=== PATIENT | male | born 1950 | race Caucasian/White ===

== ENCOUNTER → 2017-05-25 09:58 | Outpatient (CLI) | payer OTHER, MEDICARE, SELFPAY ==
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
== END ==
PROVIDERS: PCP Internal Medicine Adolescent Medicine; Referring Provider Internal Medicine Adolescent Medicine; Visit Provider Internal Medicine Adolescent Medicine
DX: S63.501D Unspecified sprain of right wrist, subsequent encounter (principal)
CPT/HCPCS: 73090; 73110

== ENCOUNTER → 2017-06-19 07:02 | Outpatient (CLI) | payer MEDICARE, OTHER, SELFPAY ==
--- NOTE | 2017-06-19 07:09 | CA_ITS ---
PROCEDURE: 2-D M-mode and color Doppler study INDICATIONS FOR THE TEST: Chest pain COPD Heart Murmur Tobacco Smokingx Palpitations Fatigue Syncope Edema HypertensionxDiabetes Mellitus Rheumatic Fever SOB MAZARIEGOS Obesity Hyperlipidemiax Family History HD Additional History PATIENT INFORMATION HEIGHT: 5' 9'' WEIGHT: 140 GENDER: Male B/P: 103/62 2-D/M-MODE INTERPRETATION: 2-D MEASUREMENTS OBSERVED VALUES IN CMS Right Ventricular Dimension (RVDd) 2.7 Interventricular Septum (Thickness)(IVsd) 1.3 Left Ventricular Internal Dimensions(LVIDd) 3.8 Left Ventricular Posterior Wall (Thickness)(LVPWd) 1.3 Aortic Root 3.4 Aortic Cusp Separation 1.9 Left Atrial Dimensions (LAD) 3.4 2D 1. Left atrium is qualitatively mildly enlarged, left ventricle is normal size, there is mild concentric left ventricular hypertrophy, visually estimated ejection fraction 55% with no obvious regional wall motion abnormality. 2. The right atrium and right ventricle are relatively normal size and function. 3. The aortic valve is thickened and calcified leaflet continue to display mobility. 4. The mitral valve leaflets are minimally thickened, there is mild prolapse of the posterior mitral leaflet. 5. The tricuspid valve leaflets are minimally thickened. 6. The pulmonic valve is poorly visualized. 7. No significant pericardial effusion noted. DOPPLER INTERROGATION: Doppler interrogation of the aortic, mitral and tricuspid valvular presence of mild aortic, mild to moderate mitral and tricuspid regurgitation, tricuspid and jet velocity is insufficient for calculation of the right ventricular systolic pressure, grade 1 diastolic dysfunction seen without tissue Doppler evidence of raised left atrial pressure. CONCLUSION: 1. Mildly enlarged left atrium, normal left ventricular size, mild concentric left ventricular hypertrophy, visually estimated ejection fraction 55% with no obvious regional wall motion abnormality. Grade 1 diastolic dysfunction seen without tissue Doppler evidence of raised left atrial pressure. 2. Thickened and calcified aortic valve without aortic stenosis, there is mild aortic insufficiency. 3. Mild posterior mitral leaflet prolapse associated with mild to moderate mitral regurgitation 4. Mild to moderate tricuspid regurgitation 5. No significant pericardial effusion noted.
--- NOTE | 2017-06-19 07:09 | CI_ITS ---
Cerebrovascular Exam Indications: 433.10 Occlusion/stenosis of carotid artery without cerebral infarction. IMPRESSIONS 1. The bilateral internal carotid arteries reveal no evidence of plaque or stenosis. 2. The bilateral common and external carotid arteries reveal no significant stenosis. Carotid duplex study. Complete study and Doppler flow study including spectral analysis, color and steward scale imaging. Height: Height: 175.3cm. Height: 69in. Weight: Weight: 63.5kg. Weight: 139.7lb. Body mass index: BMI: 20.7kg/m^2. Body surface area: BSA: 1.75m^2. Location: Vascular laboratory. Patient status: Outpatient. Tables: Arterial flow: + +---------+---------+ Location V sys V ed + +---------+---------+ Right CCA - proximal 76.1cm/s 18.2cm/s + +---------+---------+ Right CCA - distal 65.6cm/s 17.1cm/s + +---------+---------+ Right ECA -116cm/s -18.2cm/s + +---------+---------+ Right ICA - proximal -53.1cm/s -19.6cm/s + +---------+---------+ Right ICA - mid -53.4cm/s -22.3cm/s + +---------+---------+ Right ICA - distal -55.5cm/s -28.3cm/s + +---------+---------+ Right vertebral 49.6cm/s 11.9cm/s + +---------+---------+ Left CCA - proximal 72.8cm/s 16.5cm/s + +---------+---------+ Left CCA - distal 80cm/s 21cm/s + +---------+---------+ Left ECA -86.6cm/s -19.3cm/s + +---------+---------+ Left ICA - proximal -53.5cm/s -17.2cm/s + +---------+---------+ Left ICA - mid -46.7cm/s -22.1cm/s + +---------+---------+ Left ICA - distal -44.8cm/s -21.6cm/s + +---------+---------+ Left vertebral -48.3cm/s -17.3cm/s + +---------+---------+ Velocity ratios: + + + + Right, V sys Left, V sys + + + + Max ICA/mid CCA 0.73 0.67 + + + + (Report amended ) Electronically signed by: Josue Nunez [id number]
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
== END ==
PROVIDERS: Family Provider Internal Medicine Adolescent Medicine; PCP Internal Medicine Adolescent Medicine; Visit Provider Internal Medicine
DX: I20.8 Other forms of angina pectoris (principal); R20.0 Anesthesia of skin; I65.23 Occlusion and stenosis of bilateral carotid arteries
CPT/HCPCS: 78452; 93017; 93306; 93880; A9502; J2785

== ENCOUNTER 2017-06-28 11:58 | Day surgery (SDC) | payer MEDICARE, OTHER, SELFPAY ==
[2017-06-28] VITALS (9 sets, daily range): BP systolic 111–134; BP diastolic 62–73; PULSE 38–55; RESP 18; TEMP 36.7; O2SAT 97–100; BMI 19.4
--- NOTE | 2017-06-28 12:01 | CA_ITS ---
Procedure: Transesophageal echocardiogram Indication for procedure: AI Procedure: Patient was brought in to the cardiac catheter lab holding area in hemodynamically stable condition, after the informed consent, conscious sedation was brought by anesthesiologist, local anesthesia was applied, and transesophageal echocardiogram was performed without any difficulty. Patient tolerated the procedure well. Findings: 1. The left atrium is mildly enlarged, left atrial appendage thrombus, there is good appendage flow by spectral Doppler. 2. The right atrium is normal size, 3. The intra-atrial septum is intact, there is a small PFO with left to right shunt, agitated saline contrast study fails to identify right to left shunt. 4. The aortic valve is minimally thickened and calcified, there appears to be degenerative changes present in the noncoronary cusp which prolapse during diastole towards the left ventricular outflow tract, there is no aortic stenosis, there is severe aortic insufficiency present. 5. The mitral valve leaflets are minimally thickened, there is mild mitral regurgitation there is no mitral stenosis. 6. The tricuspid valve is structurally normal 7. The pulmonic valve is structurally normal 8. The right ventricle is normal size and contractility. 9. The left ventricle is normal size, overall preserved left ventricular systolic function, visually estimated ejection fraction of 55% with no obvious regional wall motion abnormality. 10. Ascending, arch and descending thoracic aorta there is no aneurysm or dissection. Conclusion: 1. Mildly left atrium, normal left ventricular size, visually estimated ejection fraction 55% with no obvious regional wall motion abnormality. 2. Abnormally aortic valve is described above associated with severe aortic insufficiency 3. Patent foramen ovale with left right shunt, agitated saline contrast study appears to identify right to left shunt. 4. No significant pericardial effusion noted 5. Mild mitral and tricuspid regurgitation.
--- NOTE | 2017-06-28 13:03 | P.PN_ITS ---
[facility] Anesthesia Checklist - Patient Identification Patient Identification: Arm Band - Structural Data Admitted From: Home Planned Operative Procedure/s: lolis Consent for Planned Operative Procedure(s) Verified: Yes Verified Documents: History and Physical - NPO Status Verified Time NPO: 00:00 - Additional verifications Anesthesia Reactions: No - Airway Assessment C-Spine Mobility Assessed: Yes TMJ Mobility Assessed: Yes Dentition: Dentures-good fit - Neurological Assessment Level of Consciousness: Awake, Alert - Anesthesia Plan Anesthesia Risk discussed: Yes Anesthesia Plan: Verified ASA Class: III Anesthesia Type: MAC [facility] Anesthesia HX I have reviewed the patient's past medical history: Yes Medical History: Reports:: Coronary Artery Disease, Gastroesophageal Reflux Disease(GERD), Hyperlipidemia, Hypertension, Valvular Heart Disease Denies:: Internal Pacemaker, Seizures Other Medical History: Denies: Blood Transfusion Reaction Other Surgeries: Yes: Colonoscopy (2016), Hernia Repair (01/2016). No: Pacemaker Amputation: No Fractures: No *Family Hx:: Diabetes
== END 2017-06-28 14:48 | disposition home or self-care (01) ==
LOC: CATHLAB 12:00
PROVIDERS: Family Provider Internal Medicine Adolescent Medicine; PCP Internal Medicine Adolescent Medicine; Visit Provider Internal Medicine Cardiovascular Disease
DX: I34.0 Nonrheumatic mitral (valve) insufficiency (principal); R93.1 Abnormal findings on diagnostic imaging of heart and coronary circulation; R06.02 Shortness of breath; R01.1 Cardiac murmur, unspecified; I25.118 Atherosclerotic heart disease of native coronary artery with other forms of angina pectoris
CPT/HCPCS: 93312; 99152; J2405

== ENCOUNTER → 2017-09-16 09:20 | Outpatient (POV) | payer MEDICARE, OTHER, SELFPAY | PROVIDERS: Family Provider Internal Medicine Adolescent Medicine; PCP Internal Medicine Adolescent Medicine; Visit Provider Nurse Practitioner Acute Care | DX: Z00.00 Encounter for general adult medical examination without abnormal findings (principal) ==

== ENCOUNTER → 2017-10-28 09:00 | Outpatient (POV) | payer MEDICARE, OTHER, SELFPAY | PROVIDERS: Family Provider Internal Medicine Adolescent Medicine; PCP Internal Medicine Adolescent Medicine; Visit Provider Nurse Practitioner Acute Care | DX: Z00.00 Encounter for general adult medical examination without abnormal findings (principal) ==

== ENCOUNTER → 2018-01-09 12:26 | Outpatient (CLI) | payer MEDICARE, OTHER, SELFPAY ==
[2018-01-10 19:05] LABS: PSA, Free 0.48 ng/mL; Prostate Specific Ag 3.1 ng/mL (0.0-4.0)
== END ==
PROVIDERS: Family Provider Internal Medicine Adolescent Medicine; PCP Internal Medicine Adolescent Medicine; Visit Provider Urology
DX: R97.20 Elevated prostate specific antigen [PSA] (principal)
CPT/HCPCS: 36415; 84153; 84154

== ENCOUNTER → 2018-01-20 15:41 | Outpatient (POV) | payer MEDICARE, OTHER, SELFPAY | PROVIDERS: Visit Provider Nurse Practitioner Acute Care | DX: Z00.00 Encounter for general adult medical examination without abnormal findings (principal) ==

== ENCOUNTER → 2018-04-21 14:57 | Outpatient (POV) | payer MEDICARE, OTHER, SELFPAY | PROVIDERS: Visit Provider Nurse Practitioner Acute Care | DX: Z00.00 Encounter for general adult medical examination without abnormal findings (principal) ==

== ENCOUNTER → 2018-04-21 15:36 | Outpatient (CLI) | payer MEDICARE, OTHER, SELFPAY ==
[2018-04-21 19:03] LABS: Anion Gap 12.6 mEq/L (5-15); Blood Urea Nitrogen 21 mg/dL (7-18); Calcium 8.7 mg/dL (8.5-10.1); Carbon Dioxide 28 mmol/L (21.0-32.0); Chloride 105 mmol/L (98-107); Creatinine,Serum 1.16 mg/dL (0.70-1.30); Estimated Glomerular Filt Rate 62 ml/min (>60); GFR (African American) 75 ML/MIN (>60); Glucose 95 mg/dL (74-106); Potassium 4.6 mmoL/L (3.5-5.1); Sodium 141 mmol/L (136-145)
== END ==
PROVIDERS: Visit Provider Nurse Practitioner Acute Care
DX: R10.9 Unspecified abdominal pain (principal)
CPT/HCPCS: 36415; 80048

== ENCOUNTER → 2018-04-24 09:57 | Outpatient (CLI) | payer MEDICARE, OTHER, SELFPAY ==
--- NOTE | 2018-04-24 10:09 | CT_ITS ---
CT abdomen pelvis w con CLINICAL INDICATION: Mid to left upper abdominal pain radiating into the back ITS.REASON: MIDEPIGASTRIC PAIN ORDERING PHYSICIAN: Jess Foss PATIENT AGE: 68 years COMPARISON: 07/06/2016 TECHNIQUE: Axial images obtained with sagittal and coronal reformats. All CT scans at the facility use one or more dose reduction, viz: automated exposure control, ma/kV adjustment per patient size (including targeted exams where dose is matched to indication, i.e. head), or iterative reconstruction technique. PROCEDURE: Oral Contrast: Redicat IV Contrast: 75 mL's of Isovue 370. FINDINGS: There is atelectasis or scarring in the lung bases. The liver, gallbladder, spleen, adrenal glands, and pancreas have an unremarkable appearance. No renal or ureteral calculi. No hydronephrosis or renal mass. Unremarkable appendix. No intestinal obstruction or free air. There is diverticulosis of the sigmoid colon but no evidence of diverticulitis. The prostate is enlarged at 6.7 x 5.6 cm Mild lumbar scoliosis convex left. Multilevel degenerative disc disease in the lumbar spine with facet arthritic change. IMPRESSION: 1. No acute abdominal or pelvic findings. 2. Diverticulosis coli. No evidence of diverticulitis. 3. Enlarged prostate. 4. Degenerative changes lumbar spine
== END ==
PROVIDERS: PCP Internal Medicine Adolescent Medicine; Visit Provider Nurse Practitioner Acute Care
DX: R10.9 Unspecified abdominal pain (principal)
CPT/HCPCS: 74177; Q9967

== ENCOUNTER → 2018-07-10 12:10 | Outpatient (CLI) | payer MEDICARE, OTHER, SELFPAY ==
[2018-07-12 10:14] LABS: PSA, Free 1.02 ng/mL; Prostate Specific Ag 3.8 ng/mL (0.0-4.0)
== END ==
PROVIDERS: Visit Provider Urology
DX: R97.20 Elevated prostate specific antigen [PSA] (principal)
CPT/HCPCS: 36415; 84153; 84154

== ENCOUNTER → 2018-10-20 13:54 | Outpatient (POV) | payer MEDICARE, OTHER, SELFPAY | PROVIDERS: Visit Provider Nurse Practitioner Family | DX: Z00.00 Encounter for general adult medical examination without abnormal findings (principal) ==

== ENCOUNTER → 2019-02-27 10:49 | Outpatient (CLI) | payer MEDICARE, OTHER, SELFPAY ==
[2019-02-27 11:20] LABS: Basophils # 0.1 K/mm3 (0-0.2); Basophils % 0.5 % (0.1-2.0); Eosinophils # 0.2 K/mm3 (0.0-0.4); Hematocrit 47.1 % (42.0-52.0); Hemoglobin 15.1 g/dL (14.1-18.0); Lymphocytes % 17.9 % (10-50); Mean Corpuscular Hemoglobin 30.4 pg (27.0-31.2); Mean Corpuscular Volume 95.1 fl (80-94); Mean Platelet Volume 8.1 fl (7.4-10.4); Monocytes # 0.6 K/mm3 (0.1-1.0); Monocytes % 5.8 % (1.7-9.3); Neutrophils # 8.3 K/mm3 (1.8-7.8); Neutrophils % 73.8 % (37.0-80.0); Platelet Count 368 K/mm3 (142-424); Red Blood Count 4.96 M/mm3 (4.60-6.20); Red Cell Distribution Width 13.1 % (11.5-17.5); White Blood Count 11.2 K/mm3 (4.8-10.8)
[2019-02-27 13:49] LABS: Alanine Aminotransferase 21 U/L (12-78); Albumin/Globulin Ratio 1.5 (1.1-1.8); Alkaline Phosphatase 84 U/L (46-116); Anion Gap 8.7 mEq/L (5-15); Aspartate Amino Transferase 11 U/L (15-37); Bilirubin,Total 1.2 mg/dL (0.2-1.0); Blood Urea Nitrogen 13 mg/dL (7-18); Carbon Dioxide 31 mmol/L (21.0-32.0); Chloride 103 mmol/L (98-107); Chol/HDL Ratio 1.9 (1-3.5); Cholesterol 131 mg/dL (140-200); Creatinine,Serum 0.92 mg/dL (0.70-1.30); Estimated Glomerular Filt Rate 81 ml/min (>60); GFR (African American) 98 ML/MIN (>60); Globulin 2.6 gm/dl (1.3-3.2); Glucose 84 mg/dL (74-106); HDL Cholesterol 69 mg/dL (27-67); LDL Cholesterol 44 mg/dL (0-130); Potassium 4.7 mmoL/L (3.5-5.1); Sodium 138 mmol/L (136-145); Thyroid Stimulating Hormone 0.61 uIU/ml (0.358-3.740); Total Protein,Serum 6.6 gm/dL (6.4-8.2); Triglycerides 89 mg/dL (30-200); VLDL Cholesterol 18 mg/dL (0-40)
[2019-02-28 18:53] LABS: Vitamin B12 475 pg/mL (232-1245); Vitamin D 25 Hydroxy 23.4 ng/mL (30.0-100.0)
== END ==
PROVIDERS: Visit Provider Internal Medicine Adolescent Medicine
DX: I25.10 Atherosclerotic heart disease of native coronary artery without angina pectoris (principal); R20.2 Paresthesia of skin; Z79.899 Other long term (current) drug therapy
CPT/HCPCS: 36415; 80053; 80061; 82607; 82652; 83036; 84443; 85025

== ENCOUNTER → 2019-07-20 11:53 | Outpatient (CLI) | payer MEDICARE, OTHER, SELFPAY ==
[2019-07-24 11:22] LABS: PSA, Free 0.46 ng/mL; Prostate Specific Ag 2.9 ng/mL (0.0-4.0)
== END ==
PROVIDERS: Visit Provider Urology
DX: R97.20 Elevated prostate specific antigen [PSA] (principal)
CPT/HCPCS: 36415; 84153; 84154

== ENCOUNTER → 2019-08-20 15:00 | Outpatient (CLI) | payer MEDICARE, OTHER, SELFPAY ==
[2019-08-20 15:19] LABS: Basophils # 0.1 K/mm3 (0-0.2); Basophils % 0.8 % (0.1-2.0); Eosinophils # 0.2 K/mm3 (0.0-0.4); Eosinophils % 2.6 % (0.1-12.0); Hematocrit 42.5 % (42.0-52.0); Hemoglobin 13.9 g/dL (14.1-18.0); Lymphocytes # 1.7 K/mm3 (0.7-4.5); Lymphocytes % 21.7 % (10-50); Mean Corpuscular HGB Conc 32.7 g/dL (31.8-35.4); Mean Corpuscular Hemoglobin 30.1 pg (27.0-31.2); Mean Corpuscular Volume 91.9 fl (80-94); Mean Platelet Volume 8.9 fl (7.4-10.4); Monocytes # 0.5 K/mm3 (0.1-1.0); Monocytes % 5.9 % (1.7-9.3); Neutrophils # 5.5 K/mm3 (1.8-7.8); Platelet Count 370 K/mm3 (142-424); Red Blood Count 4.63 M/mm3 (4.60-6.20); Red Cell Distribution Width 12.9 % (11.5-17.5)
[2019-08-20 16:55] LABS: Chloride 101 mmol/L (98-107); Potassium 4.7 mmoL/L (3.5-5.1); Sodium 137 mmol/L (136-145)
[2019-08-20 16:58] LABS: Alanine Aminotransferase 25 U/L (12-78); Alkaline Phosphatase 58 U/L (38-126); Anion Gap 13.7 mEq/L (5-15); Aspartate Amino Transferase 30 U/L (17-59); Bilirubin,Total 1.1 mg/dl (0.2-1.3); Blood Urea Nitrogen 12 mg/dl (9-20); Calcium 9.4 mg/dl (8.4-10.2); Carbon Dioxide 27 mmol/L (22.0-30.0); Cholesterol 111 mg/dl (140-200); Estimated Glomerular Filt Rate 83 ml/min (>60); GFR (African American) 101 ML/MIN (>60); Glucose 115 mg/dl (74-100); Triglycerides 94 mg/dl (30-150); VLDL Cholesterol 19 mg/dL (0-40)
[2019-08-20 16:59] LABS: Albumin Level 4.3 g/dl (3.5-5.0); Albumin/Globulin Ratio 2.2 (1.1-1.8); Chol/HDL Ratio 2.4 (1-3.5); HDL Cholesterol 47 mg/dl (40-60); Total Protein,Serum 6.3 g/dl (6.3-8.2)
[2019-08-20 17:10] LABS: Direct LDL Cholesterol 61.53 mg/dL (100-129)
== END ==
PROVIDERS: Visit Provider Internal Medicine Adolescent Medicine
DX: E78.5 Hyperlipidemia, unspecified (principal); I25.10 Atherosclerotic heart disease of native coronary artery without angina pectoris
CPT/HCPCS: 36415; 80053; 80061; 85025

== ENCOUNTER → 2020-01-14 16:40 | Outpatient (CLI) | payer MEDICARE, OTHER, SELFPAY ==
[2020-01-14 17:14] LABS: Basophils # 0.1 K/mm3 (0-0.2); Basophils % 0.7 % (0.1-2.0); Eosinophils # 0.2 K/mm3 (0.0-0.4); Eosinophils % 2.2 % (0.1-12.0); Hemoglobin 15.1 g/dL (14.1-18.0); Lymphocytes # 2.2 K/mm3 (0.7-4.5); Lymphocytes % 24.5 % (10-50); Mean Corpuscular HGB Conc 33.6 g/dL (31.8-35.4); Mean Corpuscular Hemoglobin 30.4 pg (27.0-31.2); Mean Corpuscular Volume 90.5 fl (80-94); Mean Platelet Volume 7.5 fl (7.4-10.4); Monocytes # 0.5 K/mm3 (0.1-1.0); Monocytes % 5.2 % (1.7-9.3); Neutrophils # 5.9 K/mm3 (1.8-7.8); Neutrophils % 67.4 % (37.0-80.0); Platelet Count 353 K/mm3 (142-424); Red Blood Count 4.97 M/mm3 (4.60-6.20); Red Cell Distribution Width 12.9 % (11.5-17.5); White Blood Count 8.8 K/mm3 (4.8-10.8)
[2020-01-14 17:30] LABS: Alanine Aminotransferase 20 U/L (12-78); Albumin Level 4.6 g/dl (3.5-5.0); Albumin/Globulin Ratio 1.9 (1.1-1.8); Alkaline Phosphatase 72 U/L (38-126); Anion Gap 10.4 mEq/L (5-15); Aspartate Amino Transferase 31 U/L (17-59); Blood Urea Nitrogen 14 mg/dl (9-20); Calcium 9.7 mg/dl (8.4-10.2); Carbon Dioxide 30 mmol/L (22.0-30.0); Chloride 103 mmol/L (98-107); Chol/HDL Ratio 2.1 (1-3.5); Cholesterol 143 mg/dl (140-200); Estimated Glomerular Filt Rate 83 ml/min (>60); GFR (African American) 101 ML/MIN (>60); Globulin 2.4 g/dL (1.3-3.2); Glucose 102 mg/dl (74-100); HDL Cholesterol 69 mg/dl (40-60); Potassium 4.4 mmoL/L (3.5-5.1); Sodium 139 mmol/L (136-145); Triglycerides 100 mg/dl (30-150); VLDL Cholesterol 20 mg/dL (0-40)
[2020-01-14 17:42] LABS: Direct LDL Cholesterol 62.71 mg/dL (100-129)
[2020-01-14 17:46] LABS: 25-OH Vitamin D, Total 33.3 ng/mL (30-100)
== END ==
PROVIDERS: Visit Provider Internal Medicine Adolescent Medicine
DX: E78.5 Hyperlipidemia, unspecified (principal); I25.10 Atherosclerotic heart disease of native coronary artery without angina pectoris; E55.9 Vitamin D deficiency, unspecified
CPT/HCPCS: 36415; 80053; 80061; 82306; 85025

== ENCOUNTER → 2020-02-12 09:28 | Outpatient (CLI) | payer MEDICARE, OTHER, SELFPAY ==
--- NOTE | 2020-02-12 09:30 | US_ITS ---
APPROVED REPORT Exam Type: Lower Extremity Segmental Pressures Costume Shop Coordinator: Marti Lemus RVT Indications Claudication: Bilaterally CAD COLD LOWER EXTREMITIES,CLAUDICATION Risk Factors Hypertension CAD Hyperlipidemia Pressures/Indices Right Indices Left Indices Brachial 127.00 mmHg Brachial 134.00 mmHg Low Thigh 137.00 mmHg 1.02 Low Thigh 156.00 mmHg 1.16 Calf 142.00 mmHg 1.06 Calf 173.00 mmHg 1.29 Ankle(PT) 134.00 mmHg 1.00 Ankle(PT) 176.00 mmHg 1.31 Ankle(DP) 134.00 mmHg 1.00 Ankle(DP) 136.00 mmHg 1.01 Digit 81.00 mmHg 0.60 Digit 120.00 mmHg 0.90 Findings RT TESSA:1.00 LT TESSA:1.31 RT TBI:0.60 LT TBI:0.90 NORMAL PULSES BILATERAL NORMAL WAVEFORMS BILATERAL Conclusion RT TESSA:1.00 LT TESSA:1.31 RT TBI:0.60 LT TBI:0.90 NORMAL PULSES BILATERAL NORMAL WAVEFORMS BILATERAL Electronically signed by : Josue Nunez MD 02/12/2020 17:34:55
--- NOTE | 2020-02-12 10:00 | XR_ITS ---
PROCEDURE: XR FOOT WT BEARING RT 3V CLINICAL INDICATION: pain COMPARISON: No exams were available for comparison FINDINGS: No acute fracture or dislocation. No lytic or blastic change. There is mild cortical thickening involving the mid aspect of the proximal phalanx of the 2nd digit as well as the mid aspect of the proximal phalanx of the 5th digit which could be due to old fractures. There is some mild vascular calcification noted. Other findings:None. IMPRESSION: No acute finding. Possible old fractures of the proximal phalanx of the 2nd and 5th digit. Dictated by: Josue Nunez MD 02/12/2020 17:11 Josue Nunez MD in [place] 02/12/2020 17:11
--- NOTE | 2020-02-12 10:00 | XR_ITS ---
PROCEDURE: XR FOOT WT BEARING LT 3V CLINICAL INDICATION: pain COMPARISON: No exams were available for comparison FINDINGS: No fracture or dislocation. No lytic or blastic change. There is normal mineralization. The joint spaces are well-preserved. No significant degenerative/arthritic changes. No erosive changes evident. Other findings:There is mild pes planus. Mild generalized vascular calcification. IMPRESSION: Pes planus otherwise negative Dictated by: Josue Nunez MD 02/12/2020 17:11 Josue Nunez MD in [place] 02/12/2020 17:11
== END ==
PROVIDERS: PCP Internal Medicine Adolescent Medicine; Visit Provider Podiatrist
DX: R09.89 Other specified symptoms and signs involving the circulatory and respiratory systems (principal); M79.672 Pain in left foot; M79.671 Pain in right foot
CPT/HCPCS: 73630; 93923

== ENCOUNTER 2020-03-01 10:17 | Emergency (ER) | payer MEDICARE, OTHER, SELFPAY ==
[2020-03-01 10:27] VITALS: BP 135/70; PULSE 55; RESP 18; TEMP 36.7; O2SAT 97; BMI 20.9
--- NOTE | 2020-03-01 10:31 | HMH.EDUTC ---
[facility] [place] Clinical Impression: Encounter for laboratory testing for COVID-19 virus Disposition: Home, Self-Care Condition on Discharge: Good Instructions: Preventing the Spread of Coronavirus Discharge Instructions Additional Instructions: *Monitor Temp, Over the counter Motrin or Tylenol as directed/as needed Tylenol every 4 hours and Motrin every 6 hours (as long as your family doctor has told you that you can take it) for fever or pain. and straight to ER if unable to lower temp less than 101.0 after medication given *Warm salt water gargles may help to soothe the throat *Throat Lozenges *Warm fluids like tea with honey may help to soothe the throat *Sleep elevated *Humidifier/Vaporizer Follow up IMMEDIATELY for new or worsening symptoms or no Noticeable improvement over the next 48-72 hours. 911 for difficulty breathing or swallowing You was tested for today for COVID19 your test result should be back in the next 24 hours, you may call tomorrow after 9am to see if your test results are back and the result You was given a handout with instructions for Self Quarantine and Self isolation for while you wait on test results and what to do if they are positive Referrals: Reyes Schroeder MD [Primary Care Provider] - As needed Time of Disposition: 10:38 Medical Decision Making - Jeff Inquiry Pt receiving controlled substance: No Jeff was queried for this patient: No Vital Signs: 03/01/20 10:27 Temperature 98.1 F Temperature Source Oral Pulse Rate [Radial] 55 L Respiratory Rate 18 Blood Pressure [Right Arm] 135/70 Blood Pressure Mean [Right Arm] 91 Blood Pressure Source [Right Arm] Automatic Cuff Blood Pressure Position [Right Arm] Sitting 02 Sat by Pulse Oximetry 97 Oxygen Delivery Method Room Air [facility] [place] HPI - General Stated complaint: covid exposure Time Seen by Provider: 03/01/20 10:31 Mode of Arrival: Ambulatory Source of Information: Patient Limitations: No Limitations Description of Symptoms (Recalled from Triage Doc. 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 Denies fever Denies feeling ill - Related Data Home Medications Medication Instructions Recorded Confirmed ascorbic acid (vitamin C) 500 mg 500 mg PO BID 06/11/17 02/09/20 tablet aspirin 81 mg tablet,delayed 81 mg PO DAILY tab 06/11/17 02/09/20 release atorvastatin 40 mg tablet 40 mg PO QHS tab 06/11/17 02/09/20 clopidogrel 75 mg tablet 75 mg PO DAILY tab 06/11/17 02/09/20 finasteride 5 mg tablet 5 mg PO DAILY tab 06/11/17 02/09/20 methocarbamol 500 mg tablet 500 mg PO TID PRN tab 06/11/17 02/09/20 metoprolol succinate 50 mg 50 mg PO DAILY tab 06/11/17 02/09/20 tablet,extended release 24 hr nitroglycerin 0.4 mg sublingual 0.4 mg SUBLINGUAL Q5M PRN 06/11/17 02/09/20 tablet omeprazole 20 mg capsule,delayed 20 mg PO BID cap 06/11/17 02/09/20 release tamsulosin 0.4 mg capsule 0.4 mg PO DAILY cap 06/11/17 02/09/20 Isosorbide Mononitrate [Imdur 30mg 30 mg PO QAM 11/26/17 02/09/20 ER tablet] Ferrous Sulfate [Ferrous Sulfate 325 mg PO BID 12/31/18 02/09/20 325mg Tablet] LORazepam [Ativan 1mg tablet] 1 mg PO BID 12/31/18 02/09/20 gabapentin 100 mg capsule 100 mg PO TID cap 02/09/20 02/09/20 misoprostol 200 mcg tablet 200 mcg PO tab 02/09/20 02/09/20 Previous Rx's Medication Instructions Recorded diclofenac sodium 1 % topical gel 4 g TOPICAL QID PRN 90 Days #100 g 02/09/20 Allergies Allergy/AdvReac Type Severity Reac
[2020-03-01 10:51] VITALS: BP 135/70; PULSE 55; RESP 18; TEMP 36.7; O2SAT 97
[2020-03-02 09:08] LABS: Covid-19 Nasal PCR Sendout Lex NOT DETECTED
== END 2020-03-01 10:52 | disposition home or self-care (01) ==
PROVIDERS: Emergency Provider Nurse Practitioner; PCP Internal Medicine Adolescent Medicine
DX: Z20.828 Contact with and (suspected) exposure to other viral communicable diseases (principal); I25.10 Atherosclerotic heart disease of native coronary artery without angina pectoris; K21.9 Gastro-esophageal reflux disease without esophagitis; I10 Essential (primary) hypertension; Z86.711 Personal history of pulmonary embolism
CPT/HCPCS: G0463; 99201; U0004

== ENCOUNTER → 2020-03-22 12:37 | Outpatient (CLI) | payer MEDICARE, OTHER, SELFPAY ==
[2020-03-22 13:08] LABS: Basophils # 0.1 K/mm3 (0-0.2); Basophils % 0.8 % (0.1-2.0); Eosinophils # 0.3 K/mm3 (0.0-0.4); Eosinophils % 4.9 % (0.1-12.0); Hematocrit 45.5 % (42.0-52.0); Hemoglobin 14.9 g/dL (14.1-18.0); Lymphocytes # 1.7 K/mm3 (0.7-4.5); Lymphocytes % 25.8 % (10-50); Mean Corpuscular HGB Conc 32.7 g/dL (31.8-35.4); Mean Corpuscular Hemoglobin 30.8 pg (27.0-31.2); Mean Corpuscular Volume 94.1 fl (80-94); Mean Platelet Volume 7.9 fl (7.4-10.4); Monocytes # 0.5 K/mm3 (0.1-1.0); Monocytes % 7.7 % (1.7-9.3); Neutrophils % 60.8 % (37.0-80.0); Platelet Count 345 K/mm3 (142-424); Red Blood Count 4.84 M/mm3 (4.60-6.20); Red Cell Distribution Width 13.3 % (11.5-17.5); White Blood Count 6.6 K/mm3 (4.8-10.8)
[2020-03-22 15:05] LABS: Chloride 103 mmol/L (98-107); Potassium 4.7 mmoL/L (3.5-5.1); Sodium 139 mmol/L (136-145)
[2020-03-22 15:08] LABS: Anion Gap 11.7 mEq/L (5-15); Blood Urea Nitrogen 18 mg/dl (9-20); Calcium 9.3 mg/dl (8.4-10.2); Carbon Dioxide 29 mmol/L (22.0-30.0); Estimated Glomerular Filt Rate 83 ml/min (>60); GFR (African American) 101 ML/MIN (>60); Glucose 96 mg/dl (74-100)
[2020-03-22 15:27] LABS: Coronavirus 19 IgG Antibody Negative (Negative); Coronavirus 19 IgM Antibody Negative (Negative)
== END ==
PROVIDERS: Visit Provider Internal Medicine
DX: Z01.818 Encounter for other preprocedural examination (principal); R07.9 Chest pain, unspecified
CPT/HCPCS: 36415; 80048; 85025; 86328

== ENCOUNTER 2020-03-24 08:43 | Day surgery (SDC) | payer MEDICARE, OTHER, SELFPAY ==
[2020-03-24] VITALS (12 sets, daily range): BP systolic 112–156; BP diastolic 58–86; PULSE 48–71; RESP 16–98; TEMP 36.3; O2SAT 91–99; BMI 21.7
--- NOTE | 2020-03-24 | IR_ITS ---
APPROVED REPORT Patient Location: Outpatient Raw Mill Operator: DARA Jensen RT (R) PROCEDURES Left heart catheterization Left ventriculogram Selective coronary angiogram FFR to the right coronary artery Catheter placement in the right common iliac artery Right common iliac artery antegrade angiogram with unilateral runoff to the right foot Catheter placement in the left superficial femoral artery Left superficial femoral artery selective angiogram with unilateral runoff to the left foot Catheter placement in the distal abdominal aorta Distal abdominal aortography with bilateral iliofemoral angiogram INDICATION Known coronary artery disease, Accelerated angina pectoris, Angiographically indeterminate lesion involving the right coronary artery, Abnormal TESSA, [place] class III claudication Informed consent was obtained prior to the procedure. COMPLICATIONS none Estimated Blood Loss: less than 10 mls TECHNIQUE One percent lidocaine used to anesthetize the right anterior aspect of the wrist. The right radial artery was accessed via the Seldinger technique. A 6 Polish sheath was placed in the right radial artery. 2.5 mg of verapamil, 800 mcg of nitroglycerin, 1mg Lidocaine and 5000 U Heparin were given through the arterial sheath. The trap catheter was also used to perform left heart catheterization, left ventriculogram and selective coronary angiogram. At the end of the diagnostic angiogram therapeutic heparin was administered and and I Domenica right guide catheter was placed in the ascending aorta. An FFR wire was normalized and the catheter was then used to intubate the right coronary artery. The wire was placed distally and adenosine was infused. The FFR index nadired at 0.86 indicating a hemodynamically insignificant lesion. Because of this the apparatus was removed. The guide catheter was pulled back to the transverse aorta and the table wire was advanced into the distal abdominal aorta. A PV multicurve was then advanced into the right common iliac artery or right common iliac artery angiography was performed with unilateral runoff to the right foot. The catheter was then pulled back and advanced into the left superficial femoral artery and left superficial femoral artery selective angiography with unilateral runoff to the left foot was performed. The catheter was then pulled back to the distal abdominal aorta for distal abdominal aortography and bilateral iliofemoral angiography was performed. At the end of the procedure the apparatus was removed the sheath was removed good hemostasis was achieved using TR banding patient was transferred to the postop holding area in stable condition. ANGIOGRAPHIC RESULTS The left main artery Normal The left anterior descending artery Has a stent in the proximal segment which is widely patent with excellent proximal distal transitioning with no angiographic in-stent restenosis. This is followed by an additional 20 to 30% stenosis immediately adjacent to a first septal carbon coater machine operator followed by an additional 30% mid vessel stenosis. Distally in the LAD where the vessel is less than 2 mm in diameter a 70% stenosis is identified. The first diagonal artery has an ostial 30% stenosis followed by a large caliber stent which is slightly larger than the [place] vessel. The stent is widely patent with excellent distal transitioning The circumflex artery Is nondominant and has proximal mid vessel 20% stenoses. The first obtuse marginal artery has a proximal 40% stenosis along tortuous bands. The right coronary artery Has proximal 10% and 20% stenoses followed by mid vessel 40 to 50% stenosis with distal 20 to 30% stenoses. Distally the posterior descending artery
[2020-03-24 14:19] LABS: CATHL Activated Clotting Time 342 SEC (74-125)
== END 2020-03-24 14:39 | disposition home or self-care (01) ==
LOC: CATHLAB 08:46
PROVIDERS: PCP Internal Medicine Adolescent Medicine; Visit Provider Internal Medicine
DX: I35.1 Nonrheumatic aortic (valve) insufficiency (principal); I25.118 Atherosclerotic heart disease of native coronary artery with other forms of angina pectoris; I70.211 Atherosclerosis of native arteries of extremities with intermittent claudication, right leg; I11.0 Hypertensive heart disease with heart failure; I50.9 Heart failure, unspecified; Z79.899 Other long term (current) drug therapy
CPT/HCPCS: 36247; 75716; 85347; 93458; 93571; 99152; 99153; C1725; C1769; C1894; J0153; J1644; Q9966; Q9967

== ENCOUNTER → 2020-04-08 10:11 | Outpatient (CLI) | payer MEDICARE, OTHER, SELFPAY ==
--- NOTE | 2020-04-08 10:12 | CA_ITS ---
APPROVED REPORT EXAM: Comprehensive 2D, Doppler, and color-flow Echocardiogram Waste Machine Offbearer: Sendy Umanzor RT(R) Ht: 5 ft 11 in Wt: 159lbs BSA: 1.91 BP: 125/77 mmHg Indications: HTN, hyperlipidemia, SOB, MAZARIEGOS, AI, CAD, PAD, CHF, GERD 2D Dimensions LVOT 2.03 cm (M/F) 1.5-2.5 M-Mode Dimensions RVDd 2.94 cm (0.9-2.6) LA Diam 3.19 cm (1.9-4.0) LVDd 3.74 cm (3.5-5.7) Ao Diam 3.23 cm (2.0-3.7) LVDs 2.41 cm (3.5-5.7) IVSd 0.97 cm (0.6-1.1) PWd 1.01 cm (0.6-1.1) EF (Teich) 65.80% FS 35.60% EDV (Teich) 59.60 mL ESV (Teich) 20.40 mL LV Diastology E Decel Time 180.00 (160-240 msec) E/A Ratio 1.1 MED E' 9.40 (< 7 cm/sec) E'/MED E' Ratio 17.81 (>14) LAT E' 9.00 (<10 cm/sec) E/LAT E' Ratio 18.60 (>14) Mitral Valve MV E Max Rainer. 167.00 (40-130 cm/s) MV A Velocity 147.00 (40-130 cm/s) E/A Ratio 1.14 MV Decel. Time 180.00 (160-240 ms) MV PHT 53.00 ms Tricuspid Valve TR P. Velocity 226.00 cm/s RAP Estimate 15.00 mmHg RVSP 35.50 mmHg Left Ventricle Left atrium is mildly enlarged, left ventricle is normal size, mild concentric left ventricular hypertrophy, visually estimated ejection fraction 55% with no regional wall motion abnormality. Grade 1 diastolic dysfunction seen with tissue Doppler evidence of raise left atrial pressure. Right Ventricle Right atrium and right ventricle are normal size and contractility. Aortic Valve Aortic valve is thickened and calcified, no restriction in the leaflet mobility, there is aortic insufficiency present which is difficult to quantify with this study, this is likely in moderate range, a transesophageal echocardiogram is recommended for further evaluation. Mitral Valve Mitral valve leaflets are minimally thickened, there is mild mitral regurgitation. Tricuspid Valve Tricuspid valve is grossly normal, there is mild tricuspid regurgitation. Pulmonic Valve Pulmonic valve is poorly visualized. Great Vessels Aortic root is normal size. Pericardium No significant pericardial effusion noted. Conclusion 1. Mildly enlarged left atrium, normal left ventricular size, mild concentric left ventricular hypertrophy, visually estimated ejection fraction 55% with no regional wall motion abnormality, grade 1 diastolic dysfunction seen with tissue Doppler evidence of raise left atrial pressure. 2. Abnormal aortic valve as described above, the aortic insufficiency is difficult to quantify, a transesophageal echocardiogram is recommended. 3. Mild mitral and tricuspid regurgitation. 4. No significant pericardial effusion noted. Electronically signed by : Jonas Castro, 04/08/2020 11:22:59
== END ==
PROVIDERS: PCP Internal Medicine Adolescent Medicine; Visit Provider Physician Assistant
DX: I15.8 Other secondary hypertension; I20.9 Angina pectoris, unspecified; I35.1 Nonrheumatic aortic (valve) insufficiency; Q21.1 Atrial septal defect; R09.89 Other specified symptoms and signs involving the circulatory and respiratory systems; R68.89 Other general symptoms and signs; E78.49 Other hyperlipidemia
CPT/HCPCS: 93306

== ENCOUNTER → 2020-04-30 08:25 | Outpatient (CLI) | payer MEDICARE, OTHER, SELFPAY ==
[2020-04-30 08:36] LABS: Basophils # 0.1 K/mm3 (0-0.2); Basophils % 0.7 % (0.1-2.0); Eosinophils # 0.5 K/mm3 (0.0-0.4); Eosinophils % 6.5 % (0.1-12.0); Hemoglobin 15.7 g/dL (14.1-18.0); Lymphocytes # 2.3 K/mm3 (0.7-4.5); Lymphocytes % 30.8 % (10-50); Mean Corpuscular HGB Conc 32.7 g/dL (31.8-35.4); Mean Corpuscular Hemoglobin 30.9 pg (27.0-31.2); Mean Corpuscular Volume 94.4 fl (80-94); Mean Platelet Volume 7.7 fl (7.4-10.4); Monocytes # 0.6 K/mm3 (0.1-1.0); Monocytes % 8.1 % (1.7-9.3); Neutrophils # 3.9 K/mm3 (1.8-7.8); Neutrophils % 53.9 % (37.0-80.0); Platelet Count 333 K/mm3 (142-424); Red Blood Count 5.08 M/mm3 (4.60-6.20); Red Cell Distribution Width 13.4 % (11.5-17.5); White Blood Count 7.3 K/mm3 (4.8-10.8)
[2020-04-30 09:59] LABS: Chloride 103 mmol/L (98-107); Potassium 4.3 mmoL/L (3.5-5.1); Sodium 138 mmol/L (136-145)
[2020-04-30 10:02] LABS: Blood Urea Nitrogen 16 mg/dl (9-20); Carbon Dioxide 30 mmol/L (22.0-30.0); Estimated Glomerular Filt Rate 83 ml/min (>60); GFR (African American) 100 ML/MIN (>60)
[2020-04-30 10:03] LABS: Calcium 9.5 mg/dl (8.4-10.2); Glucose 107 mg/dl (74-100)
[2020-04-30 10:14] LABS: Coronavirus 19 IgG Antibody Negative (Negative); Coronavirus 19 IgM Antibody Negative (Negative)
== END ==
PROVIDERS: Visit Provider Urology
DX: E78.5 Hyperlipidemia, unspecified (principal); I10 Essential (primary) hypertension; I20.8 Other forms of angina pectoris; I35.1 Nonrheumatic aortic (valve) insufficiency; I73.9 Peripheral vascular disease, unspecified; R01.1 Cardiac murmur, unspecified; R06.02 Shortness of breath; Z95.5 Presence of coronary angioplasty implant and graft; Z03.818 Encounter for observation for suspected exposure to other biological agents ruled out; Z01.818 Encounter for other preprocedural examination
CPT/HCPCS: 36415; 80048; 85025; 86328

== ENCOUNTER 2020-05-05 08:46 | Day surgery (SDC) | payer MEDICARE, OTHER, SELFPAY ==
[2020-05-05] VITALS (12 sets, daily range): BP systolic 116–145; BP diastolic 61–83; PULSE 52–68; RESP 13–18; TEMP 36.8; O2SAT 92–95; BMI 21.7
--- NOTE | 2020-05-05 07:14 | IR_ITS ---
APPROVED REPORT Patient Location: Outpatient PROCEDURES Right internal jugular vein access Right heart catheterization INDICATION Patent foramen ovale, Aortic insufficiency Informed consent was obtained prior to the procedure. COMPLICATIONS none Estimated Blood Loss: less than 10 mls TECHNIQUE One percent lidocaine was used to anesthetize the right anterior aspect of the neck. A supervisor last model department needle was used to identify the right internal jugular vein. Following this a larger cannulation needle was used to cannulate the right internal jugular vein and a wire was passed into the vein. Prior to the 7 Polish sheath being inserted the wire was confirmed under fluoroscopic guidance to be in the inferior vena cava. A 7 Polish sheath was introduced and a Canute-Pilar catheter was floated using hemodynamic waveforms in the pulmonary artery, right ventricle , and right atrium. Saturations were obtained in the pulmonary artery and the right atrium. At the end of the procedure the patient was transferred to the postop holding area in stable condition for sheath removal. ANGIOGRAPHIC RESULTS Right atrial pressure 3 mmHg Pulmonary artery pressure 20/7 mmHg Pulmonary occlusion pressure 5 mmHg Right atrial saturation 83% Pulmonary artery saturation 82% IMPRESSION Normal intracardial pulmonary filling pressures Elevated right atrial and pulmonary artery saturation levels with no evidence of hemodynamic consequences as manifested by pulmonary hypertension PLAN 1. Defer back to primary cardiology treatment team Electronically signed by : Luc Bailey, 05/05/2020 09:56:29
[2020-05-05 14:06] LABS: CATHL Arterial O2 SAT 82 % (90-100); CATHL Venous O2 SAT 84 % (75-80)
== END 2020-05-05 11:06 | disposition home or self-care (01) ==
LOC: CATHLAB 08:50
PROVIDERS: PCP Internal Medicine Adolescent Medicine; Visit Provider Internal Medicine
DX: E78.5 Hyperlipidemia, unspecified (principal); I25.118 Atherosclerotic heart disease of native coronary artery with other forms of angina pectoris; I35.1 Nonrheumatic aortic (valve) insufficiency; I73.9 Peripheral vascular disease, unspecified; Z95.5 Presence of coronary angioplasty implant and graft; I27.20 Pulmonary hypertension, unspecified; Q21.1 Atrial septal defect; I50.9 Heart failure, unspecified; Z79.01 Long term (current) use of anticoagulants; Z79.899 Other long term (current) drug therapy
CPT/HCPCS: 82810; 93451; 99152; C1894; J1644

== ENCOUNTER → 2020-11-28 17:05 | Outpatient (CLI) | payer MEDICARE, SELFPAY ==
[2020-11-30 12:11] LABS: PSA, Free 0.49 ng/mL; Prostate Specific Ag 2.3 ng/mL (0.0-4.0)
== END ==
PROVIDERS: Visit Provider Urology
DX: N40.1 Benign prostatic hyperplasia with lower urinary tract symptoms (principal); R97.20 Elevated prostate specific antigen [PSA]
CPT/HCPCS: 36415; 84153; 84154

== ENCOUNTER → 2021-02-27 16:31 | Outpatient (CLI) | payer MEDICARE, SELFPAY ==
[2021-02-27 17:12] LABS: Basophils # 0.1 K/mm3 (0-0.2); Basophils % 0.7 % (0.1-2.0); Eosinophils # 0.2 K/mm3 (0.0-0.4); Eosinophils % 2.7 % (0.1-12.0); Hematocrit 44.6 % (42.0-52.0); Hemoglobin 14.7 g/dL (14.1-18.0); Lymphocytes # 2.2 K/mm3 (0.7-4.5); Lymphocytes % 25.2 % (10-50); Mean Corpuscular HGB Conc 32.9 g/dL (31.8-35.4); Mean Corpuscular Hemoglobin 31.1 pg (27.0-31.2); Mean Corpuscular Volume 94.5 fl (80-94); Mean Platelet Volume 8.2 fl (7.4-10.4); Monocytes # 0.5 K/mm3 (0.1-1.0); Monocytes % 5.7 % (1.7-9.3); Neutrophils # 5.7 K/mm3 (1.8-7.8); Neutrophils % 65.7 % (37.0-80.0); Platelet Count 405 K/mm3 (142-424); Red Blood Count 4.72 M/mm3 (4.60-6.20); Red Cell Distribution Width 13.1 % (11.5-17.5); White Blood Count 8.7 K/mm3 (4.8-10.8)
[2021-02-27 17:31] LABS: Alanine Aminotransferase 14 U/L (12-78); Albumin Level 4.4 g/dl (3.5-5.0); Albumin/Globulin Ratio 1.8 (1.1-1.8); Alkaline Phosphatase 68 U/L (38-126); Anion Gap 10.4 mEq/L (5-15); Aspartate Amino Transferase 23 U/L (17-59); Bilirubin,Total 1.1 mg/dl (0.2-1.3); Blood Urea Nitrogen 15 mg/dl (9-20); Calcium 9.5 mg/dl (8.4-10.2); Carbon Dioxide 28 mmol/L (22.0-30.0); Chloride 106 mmol/L (98-107); Chol/HDL Ratio 2.8 (1-3.5); Cholesterol 136 mg/dl (140-200); Estimated Glomerular Filt Rate 95 ml/min (>60); GFR (African American) 115 ML/MIN (>60); Globulin 2.4 g/dL (1.3-3.2); Glucose 92 mg/dl (74-100); HDL Cholesterol 49 mg/dl (40-60); Potassium 4.4 mmoL/L (3.5-5.1); Sodium 140 mmol/L (136-145); Total Protein,Serum 6.8 g/dl (6.3-8.2); Triglycerides 146 mg/dl (30-150); VLDL Cholesterol 29 mg/dL (0-40)
[2021-02-27 17:42] LABS: Direct LDL Cholesterol 65.04 mg/dL (100-129)
== END ==
PROVIDERS: Visit Provider Internal Medicine Adolescent Medicine
DX: I25.10 Atherosclerotic heart disease of native coronary artery without angina pectoris (principal); E78.5 Hyperlipidemia, unspecified
CPT/HCPCS: 36415; 80053; 80061; 85025

== ENCOUNTER → 2023-01-10 12:20 | Outpatient (CLI) | payer MEDICARE, SELFPAY ==
--- NOTE | 2023-01-10 12:25 | XR_ITS ---
FINAL REPORT CLINICAL HISTORY: HUGH HAND PAIN FINDINGS: Right hand Three views were obtained. There is no fracture or dislocation. There are mild degenerative changes. No soft tissue abnormality is identified. IMPRESSION: Mild degenerative changes. Reviewed, Interpreted and Dictated by Carson Walters III, MD Transcribed by Christie Ramsay Authenticated and [facility]
--- NOTE | 2023-01-10 12:25 | XR_ITS ---
FINAL REPORT CLINICAL HISTORY: HUGH HAND PAIN, no injury FINDINGS: Left hand Three views were obtained. There is no fracture or dislocation. There are mild degenerative changes. No soft tissue abnormality is identified. IMPRESSION: No acute process. Reviewed, Interpreted and Dictated by Carson Walters III, MD Transcribed by Christie Ramsay Authenticated and [facility]
== END ==
PROVIDERS: PCP Internal Medicine Adolescent Medicine; Visit Provider Nurse Practitioner Family
DX: M79.641 Pain in right hand (principal); M79.642 Pain in left hand
CPT/HCPCS: 73130

== ENCOUNTER 2023-05-13 10:20 | Outpatient (CLI) | payer MEDICARE, SELFPAY ==
[2023-05-14 14:12] LABS: PSA, Free 0.56 ng/mL; Prostate Specific Ag 1.7 ng/mL (0.0-4.0)
== END 2023-05-13 23:59 ==
PROVIDERS: PCP Internal Medicine Adolescent Medicine; Visit Provider Urology
DX: R35.0 Frequency of micturition (principal)
CPT/HCPCS: 36415; 84153; 84154

== ENCOUNTER 2023-05-27 08:19 | Outpatient (CLI) | payer MEDICARE, SELFPAY ==
--- NOTE | 2023-05-27 08:19 | CT_ITS ---
FINAL REPORT TECHNIQUE: After the administration of oral and intravenous contrast, axial images were obtained through the abdomen and pelvis by computed tomography. The study was performed with techniques to keep radiation dose as low as reasonably achievable, (ALARA). Individual dose reduction techniques using automated exposure control or adjustment of mA and/or kV according to the patient's size were employed. CLINICAL HISTORY: frequent urination COMPARISON: 04/24/2018 FINDINGS: Abdomen: There is scarring at the lung bases. The liver parenchyma is homogeneous. The gallbladder is present. The spleen is enlarged measuring up to 15 cm in craniocaudal dimension. The pancreas, adrenals and left kidney appear unremarkable. There is a small benign-appearing cyst in the right kidney. The aorta is normal in caliber. There is no free fluid or adenopathy. There is a small sliding-type hiatal hernia. Pelvis: There is moderate stool throughout the colon, particularly in the sigmoid colon. The prostate is enlarged measuring up to 6.9 cm in transverse dimension. The appendix is not identified. The urinary bladder is unremarkable. There is no free fluid or adenopathy. IMPRESSION: Enlarged prostate. Correlate with PSA and physical exam. Enlarged spleen, etiology unclear. Large amount of stool in the sigmoid colon. Reviewed, Interpreted and Dictated by Rodríguez Finch MD Transcribed by Anette Pacheco Authenticated and [facility]
[2023-05-27 09:27] LABS: Blood Urea Nitrogen 17 mg/dl (9-20); Estimated Glomerular Filt Rate 82 ml/min (>60); GFR (African American) 100 ML/MIN (>60)
[2023-05-27] MEDS: IOPAMIDOL-370 (76%);100ML BOTTLE 75 ML IV (10:21)
[2023-05-27] MEDS: SODIUM CHLORIDE 0.9% 10ML SYR (RAD ONLY) 10 ML IV (10:21)
== END 2023-05-27 23:59 ==
LOC: RAD 08:19
PROVIDERS: PCP Internal Medicine Adolescent Medicine; Visit Provider Urology
DX: R35.0 Frequency of micturition (principal)
CPT/HCPCS: 36415; 74177; 82565; 84520; Q9967

== ENCOUNTER 2024-05-15 08:54 | Outpatient (POV) | payer MEDICARE, SELFPAY ==
--- NOTE | 2024-05-15 09:08 | EXP.PAIN.OV ---
HPI Data of Consult Patient: new to practice Consult date: 05/15/24 Requesting Physician: Aura New APRN Primary Care Provider: Reyes Schroeder MD Consult Narrative Reason for consult: Bilateral shoulder pain, right hip pain History of present illness: Mr. Hendrix is a 74 year old male who presents today as a new patient. He is a referral from Dr. Schroeder's office. Today he rates his pain a 6 out of 10. Patient states he has chronic pain throughout his bilateral shoulders and right hip. Patient states this is going on for longer than a year and progressively worsened unrelated to any specific injury or trauma. He does state that this is a constant achy sensation that is worse with increased activity and that he does feel like this shoulder pain is worse. He states that he has a lot of difficulty lifting or doing certain range of motion due to the worsening pain. Patient denies any prior shoulder or hip surgery. He does state years ago probably 7 or more that he was a patient with our office and did get some neck injections that did last for about 6 months. Patient is interested in additional injection therapy. He does state that he has tried [id number] medications along with diclofenac gel with minimal relief. Patient is very active and walks daily and does take care of his bedbound due to having a stroke. Patient states that this pain is very limiting and he is interested in any help we may be able to provide.Patient does have significant heart history.Patient is currently managed with gabapentin 100 mg and lorazepam [address] Schroeder's office. He denies any side effects from this medication. His Jeff has been reviewed. CC: Aura New APRN [facility] Disclaimer: The information contained in this section may have been updated after the patient was seen, as this information can be updated by other users. Medical History Abnormal echocardiogram CAD (coronary artery disease) Murmur, heart Numbness Other forms of angina pectoris Sinus bradycardia SOB (shortness of breath) Social History Smoking Status: Never smoker second hand exposure: No alcohol intake: never substance use type: denies use current occupational status: retired Travel in the last 8 weeks: None household members: spouse housing: house current occupation: [employer] current occupational exposures/hazards: No caffeine: Yes Review of Systems Review of Systems Review of systems:: pertinent systems reviewed and negative unless documented below Review of systems (narrative): Review of Systems: General: No recent weight changes, no fever, no sleep disturbances Respiratory: No cough, no shortness of air, no recurring pulmonary infections Cardiovascular/peripheral vascular: No chest pain, no palpitations, no edema, no shortness of breath Gastrointestinal: No new onset incontinence, normal bowel movements reported Genitourinary: No new onset incontinence Musculoskeletal: Bilateral shoulder pain, right hip pain Psychiatric: [Normal mood/affect] Neurological: [Denies weakness in extremities], [denies balance issues] Meds Home Medications and Allergies Home Medications ?Medication ?Instructions ?Recorded ?Confirmed ?Type ascorbic acid (vitamin C) 500 mg 500 mg PO BID Supplement 06/11/17 06/03/23 History tablet aspirin 81 mg tablet,delayed 81 mg PO DAILY prevent heart 06/11/17 06/03/23 History release (Aspir-) atorvastatin 40 mg tablet 40 mg PO QHS Cholesterol 06/11/17 06/03/23 History clopidogrel 75 mg tablet (Plavix) 75 mg PO DAILY Blood thinner 06/11/17 06/03/23 History methocarbamol 500 mg tablet 500 mg PO TID PRN pain 06/11/17 06/03/23 History metoprolol succinate 50 mg 50 mg PO DAILY bp 06/11/17 06/03/23 History tablet,extended release 24 hr nitroglycerin 0.4 mg sublingual 0.4 mg sublingual Q5M PRN cp 06/11/17 06/03/23 History tablet (Nitrostat) omeprazole 20 mg capsule,delayed 20 mg PO BID stomach 06/11/17 06/03/23 History release isosorbide mononitrate 30 mg 30 mg PO QAM bp 11/26/17 06/03/23 History tablet,extended release 24 hr ferrous sulfate 325 mg (65 mg 325 mg PO BID Supplement 12/31/18 06/03/23 History iron) tablet lorazepam 1 mg tablet 1 mg PO BID ANXIETY 12/31/18 06/03/23 History diclofenac sodium 1 % topical gel 4 g topical QID PRN Pain 3 months 02/09/20 06/03/23 Rx #100 grams gabapentin 100 mg capsule 100 mg PO TID Pain 02/09/20 06/03/23 History misoprostol 200 mcg tablet 200 mcg PO DAILY GERD 02/09/20 06/03/23 History tamsulosin 0.4 mg capsule 0.4 mg PO DAILY #90 caps 01/22/22 06/03/23 Rx finasteride 5 mg tablet 5 mg PO DAILY urinary retention 05/13/23 06/03/23 Rx #90 tabs meloxicam 15 mg tablet mg PO 05/13/23 06/03/23 History finasteride 5 mg tablet 5 mg PO DAILY #90 tabs 06/03/23 06/03/23 Rx tamsulosin 0.4 mg capsule (Flomax) 0.8 mg (2 x 0.4 mg) PO DAILY 06/03/23 06/03/23 Rx prostate #180 caps New Prescriptions to Start Prescriptions: Allergies Allergy/AdvReac Type Severity Reaction Status Date / Time No Known Allergies Allergy Verified 06/03/23 11:36 Objective Narrative: Physical Exam: General: Alert and oriented x3, no acute distress, pleasant and cooperative Lungs: Respirations even and unlabored, symmetrical chest expansion Eyes: PERRL Musculoskeletal: Flexion and extension of bilateral shoulders somewhat guarded secondary to pain, [antalgic gait noted] extreme point tenderness along bilateral trapezius and rhomboid muscles Neurological: Speech clear, no gross sensory deficit Assessment and Plan *Assessment and plan (1) Myofascial pain: Status: Acute Category: Medical Code(s): M79.18 - Myalgia, other site (2) Bilateral shoulder pain: Status: Acute Category: Medical Code(s): M25.511 - Pain in right shoulder; M25.512 - Pain in left shoulder (3) Right hip pain: Status: Acute Category: Medical Code(s): M25.551 - Pain in right hip Plan Patient is experiencing significant pain throughout his bilateral shoulders with limited range of motion and extreme point tenderness along his bilateral trapezius and rhomboid muscles. I did discuss with the patient that I do believe he would benefit from intra-articular shoulder injections as well as trigger point injections. Patient does feel like the muscles being so tender is worse than the joint itself. We did review over the risk and benefits of the trigger point injections and we will proceed forward with the set of injections first. Patient has tried and failed conservative therapy including continued at home stretching and exercise for longer than 12 weeks. I will order the patient a compounded cream. Patient will be scheduled for bilateral trigger point injections of his trapezius and rhomboid muscles. These injections will be done without fluoroscopic guidance or ultrasound. Patient has been instructed to contact the clinic with any concerns before the next appointment. Dr. Quezada has reviewed this note and agrees with this plan of care. This note was dictated using voice recognition software and make contain errors or omissions. All injections are used with Lidocaine, Bupivacaine and Depo Medrol. Occasionally urine drug screen is needed to verify patient's compliance with our office pain contract. This is ordered based off specific treatments related to chronic pain with the potential to abuse certain medications.
[2024-05-15 09:25] VITALS: BP 143/83; PULSE 61; RESP 18; O2SAT 93; BMI 23.7
== END 2024-05-15 23:59 | disposition home or self-care (01) ==
LOC: SC.PAIN 08:55
PROVIDERS: PCP Internal Medicine Adolescent Medicine; Visit Provider Nurse Practitioner Family
DX: M79.18 Myalgia, other site (principal); M25.511 Pain in right shoulder; M25.512 Pain in left shoulder; M25.551 Pain in right hip; Z79.899 Other long term (current) drug therapy
CPT/HCPCS: 99202; G0463

== ENCOUNTER 2024-05-22 08:44 | Day surgery (SDC) | payer MEDICARE, SELFPAY ==
[2024-05-22 08:51] VITALS: BP 145/67; PULSE 66; RESP 16; TEMP 36.5; O2SAT 96; BMI 23.7
--- NOTE | 2024-05-22 09:13 | EXP.PAIN.PRO ---
Procedure Date: 05/22/24 Time: 09:13 Anesthesiologist:: Aura New APRN Complications:: None Pre-procedure Diagnosis:: Myofascial pain of bilateral trapezius and rhomboid muscles, right hip pain Post-procedure Diagnosis:: Same Indications for Procedure:: Patient is a pleasant 74-year-old male who presents today for trigger point injections of his bilateral trapezius and rhomboid muscles. Today he rates his pain a Out of 10. He denies any new trauma or injury. Physical Exam: General: Alert and oriented x3, no acute distress, pleasant and cooperative Lungs: Respirations even and unlabored, symmetrical chest expansion Eyes: PERRL Musculoskeletal: Flexion and extension of cervical [spine] somewhat guarded secondary to pain, [antalgic gait noted] Neurological: Speech clear, no gross sensory deficit Procedure Details:: Patient did have noninvasive blood pressure cuff applied and pulse oximeter. Patient was placed in a sitting position and palpated along his bilateral trapezius and rhomboid muscles. Areas of point tenderness were marked and using a sterile 25-gauge needle approximately 10 mL of 0.25% bupivacaine, 1% lidocaine and 80 mg Depo-Medrol were incrementally injected into his bilateral trapezius and rhomboid muscles. Needle was removed and sterile bandages applied. Patient tolerated the procedure well with no complications and was discharged neurologically intact. Plan and Disposition:: Patient tolerated the procedure well with no complications and was discharged neurologically intact. Patient will return to clinic in 2 weeks for reevaluation of symptoms and plan of care. Patient has been instructed to contact the clinic with any concerns before the next appointment. Dr. Quezada has reviewed this note and agrees with this plan of care. This note was dictated using voice recognition software and make contain errors or omissions. All injections are used with Lidocaine, Bupivacaine and Depo Medrol. Occasionally urine drug screen is needed to verify patient's compliance with our office pain contract. This is ordered based off specific treatments related to chronic pain with the potential to abuse certain medications.
[2024-05-22] MEDS: methylPREDNISolone ACETATE 80MG/ML VIAL 80 MG (09:24)
[2024-05-22] MEDS: LIDOCAINE 1% 5ML PF VIAL 5 ML (09:24)
[2024-05-22 09:25] VITALS: BP 132/76; PULSE 61; RESP 18; O2SAT 95
[2024-05-22] MEDS: BUPIVACAINE 0.25% 10ML INJ 25 MG IJ (09:25)
[2024-05-22 09:27] VITALS: BP 137/76; PULSE 63; RESP 16; O2SAT 96
[2024-05-22 09:33] VITALS: BP 132/76; PULSE 61; RESP 18; O2SAT 95
== END 2024-05-22 09:27 | disposition home or self-care (01) ==
PROVIDERS: PCP Internal Medicine Adolescent Medicine; Visit Provider Nurse Practitioner Family
DX: M79.18 Myalgia, other site (principal)
CPT/HCPCS: 20553; J1010

== ENCOUNTER 2024-06-05 09:06 | Outpatient (POV) | payer MEDICARE, SELFPAY ==
--- NOTE | 2024-06-05 09:22 | A.OFFVIS_ITS ---
[facility] Disclaimer: The information contained in this section may have been updated after the patient was seen, as this information can be updated by other users. Medical History Abnormal echocardiogram CAD (coronary artery disease) Murmur, heart Numbness Other forms of angina pectoris Sinus bradycardia SOB (shortness of breath) Family History Other Unknown family medical history Social History Smoking Status: Never smoker second hand exposure: No alcohol intake: never substance use type: denies use current occupational status: retired Travel in the last 8 weeks: None household members: spouse housing: house current occupation: [employer] current occupational exposures/hazards: No caffeine: Yes PM Subjective & Objective Subjective Subjective:: Patient is a pleasant 74-year-old male who presents today for follow-up of trigger point injections of his bilateral trapezius and rhomboid muscles on 05/22/2024. He rates his pain today a 5 out of 10. He does state that the injections did help significantly for the first day or so and states at that time his pain was maybe a 2 out of 10. He felt like it did ease down the pain in his muscles however over time he feels like he would only write it now about a 25% improvement. He does state that he is having more pain in his bilateral shoulders and describes it as an aching sensation. Patient states that he does take care of his immobile who had suffered a stroke and does a lot of pulling and tugging which aggravates his shoulder pain. Patient does state he feels like they drawl up on him. Patient does state the pain interferes with his ability perform activities of daily living such as cooking and cleaning. Patient also makes mention that he has been having a lot of phlegm and hoarseness and does not know if this has anything to do with the injections or just the weather. His Jeff has been reviewed and is appropriate. Review of Systems: General: No recent weight changes, no fever, no sleep disturbances Respiratory: No cough, no shortness of air, no recurring pulmonary infections Cardiovascular/peripheral vascular: No chest pain, no palpitations, no edema, no shortness of breath Gastrointestinal: No new onset incontinence, normal bowel movements reported Genitourinary: No new onset incontinence Musculoskeletal: Bilateral shoulder pain Psychiatric: [Normal mood/affect] Neurological: [Denies weakness in extremities], [denies balance issues] Pain at rest (0-10 scale): 5 Objective Objective:: Physical Exam: General: Alert and oriented x3, no acute distress, pleasant and cooperative Lungs: Respirations even and unlabored, symmetrical chest expansion Eyes: PERRL Musculoskeletal: Flexion and extension of bilateral shoulders somewhat guarded secondary to pain, [antalgic gait noted] Neurological: Speech clear, no gross sensory deficit Has patient had previous pain injection?: Yes Percent improvement in pain since last injection: 50 to 25% Conservative treatment options previously tried: Home exercise plan Length of treatment: Longer than 12 weeks Meds Home Medications and Allergies Home Medications ?Medication ?Instructions ?Recorded ?Confirmed ?Type ascorbic acid (vitamin C) 500 mg 500 mg PO BID Supplement 06/11/17 06/05/24 History tablet aspirin 81 mg tablet,delayed 81 mg PO DAILY prevent heart 06/11/17 06/05/24 History release (Aspir-) atorvastatin 40 mg tablet 40 mg PO QHS Cholesterol 06/11/17 06/05/24 History clopidogrel 75 mg tablet (Plavix) 75 mg PO DAILY Blood thinner 06/11/17 06/05/24 History methocarbamol 500 mg tablet 500 mg PO TID PRN pain 06/11/17 06/05/24 History metoprolol succinate 50 mg 50 mg PO DAILY bp 06/11/17 06/05/24 History tablet,extended release 24 hr nitroglycerin 0.4 mg sublingual 0.4 mg sublingual Q5M PRN cp 06/11/17 06/05/24 History tablet (Nitrostat) omeprazole 20 mg capsule,delayed 20 mg PO BID stomach 06/11/17 06/05/24 History release isosorbide mononitrate 30 mg 30 mg PO QAM bp 11/26/17 06/05/24 History tablet,extended release 24 hr ferrous sulfate 325 mg (65 mg 325 mg PO BID Supplement 12/31/18 06/05/24 History iron) tablet lorazepam 1 mg tablet 1 mg PO BID ANXIETY 12/31/18 06/05/24 History diclofenac sodium 1 % topical gel 4 g topical QID PRN Pain 3 months 02/09/20 06/05/24 Rx #100 grams gabapentin 100 mg capsule 100 mg PO TID Pain 02/09/20 06/05/24 History misoprostol 200 mcg tablet 200 mcg PO DAILY GERD 02/09/20 06/05/24 History finasteride 5 mg tablet 5 mg PO DAILY urinary retention 05/13/23 06/05/24 Rx #90 tabs meloxicam 15 mg tablet 15 mg PO DIRECTED Pain 05/13/23 06/05/24 History tamsulosin 0.4 mg capsule (Flomax) 0.8 mg (2 x 0.4 mg) PO DAILY 06/03/23 06/05/24 Rx prostate #180 caps New Prescriptions to Start Prescriptions: Allergies Allergy/AdvReac Type Severity Reaction Status Date / Time No Known Allergies Allergy Verified 06/03/23 11:36 Assessment and Plan *Assessment and plan (1) Bilateral shoulder pain: Status: Acute Category: Medical Code(s): M25.511 - Pain in right shoulder; M25.512 - Pain in left shoulder Plan Patient did get significant improvement however it did seem more temporary relief with the trigger points. Patient did have limited range of motion of his bilateral shoulders during today's visit. Patient has not had any shoulder replacement in the past. I did discuss with the patient due to his limited mobility and increased pain with increased activity that he may benefit from intra-articular shoulder injections. Risk and benefits were discussed with the patient and he would like to proceed forward with this plan of care. Patient has tried and failed conservative therapy including oral medications, heat and ice, topicals, at home exercising and stretching for longer than 12 weeks. Patient has had longstanding shoulder pain that is chronic going on for years. We will schedule the patient for bilateral shoulder intra-articular injections. These will be done without fluoroscopic or ultrasound guidance. Patient has been instructed to contact the clinic with any concerns before the next appointment. Dr. Quezada has reviewed this note and agrees with this plan of care. This note was dictated using voice recognition software and make contain errors or omissions. All injections are used with Lidocaine, Bupivacaine and Depo Medrol. Occasionally urine drug screen is needed to verify patient's compliance with our office pain contract. This is ordered based off specific treatments related to chronic pain with the potential to abuse certain medications.
[2024-06-05 10:00] VITALS: BP 136/81; PULSE 82; RESP 16; TEMP 36.7; O2SAT 95; BMI 23.7
== END 2024-06-05 23:59 | disposition home or self-care (01) ==
LOC: SC.PAIN 09:07
PROVIDERS: PCP Internal Medicine Adolescent Medicine; Visit Provider Nurse Practitioner Family
DX: M25.511 Pain in right shoulder (principal); M25.512 Pain in left shoulder; Z73.89 Other problems related to life management difficulty; Z79.899 Other long term (current) drug therapy
CPT/HCPCS: 99212; G0463

== ENCOUNTER 2024-07-14 10:03 | Day surgery (SDC) | payer MEDICARE, SELFPAY ==
[2024-07-14 10:05] VITALS: BP 114/73; PULSE 72; RESP 16; TEMP 37.1; O2SAT 100; BMI 23.7
--- NOTE | 2024-07-14 10:30 | EXP.PAIN.PRO ---
Procedure Date: 07/14/24 Time: 10:20 Anesthesiologist:: Dilan Pavon CRNA Complications:: None Pre-procedure Diagnosis:: DJD bilateral shoulder. Chronic bilateral shoulder pain. Post-procedure Diagnosis:: Same. Indications for Procedure:: Patient is a very pleasant 74-year-old male who comes our clinic today for bilateral intra-articular shoulder injections of cortisone and local anesthetic. Patient describes bilateral shoulder pain as constant, dull, aching. Patient has 5/5 strength in bilateral arms. However, limited range of motion secondary to bilateral shoulder pain. He rates his pain 5/10. Procedure Details:: Procedure Details: Bilateral shoulder intra-articular injection Informed consent was obtained risk and benefits of the procedure were explained to the patient. Patient was taken to the procedure room. The bilateral shoulder was prepped using ChloraPrep. A 25-gauge needle was used posteriorly to inject 10 mL bupivacaine 0.25% and Depo-Medrol 40 mg bilaterally. Patient tolerated procedure well with no complications. Plan and Disposition:: Patient was discharged without incident.
[2024-07-14 10:33] VITALS: BP 134/74; PULSE 70; RESP 16; O2SAT 95
--- NOTE | 2024-07-14 10:33 | EXP.PAIN.PRO ---
Procedure Date: 07/14/24 Time: 10:20 Anesthesiologist:: Dilan Pavon CRNA Complications:: None Pre-procedure Diagnosis:: DJD bilateral shoulder. Chronic bilateral shoulder pain. Post-procedure Diagnosis:: Same. Indications for Procedure:: Patient is a very pleasant 74-year-old male who comes our clinic today for bilateral intra-articular shoulder injections of cortisone and local anesthetic. Patient describes bilateral shoulder pain as constant, dull, aching. He rates his pain 6/10. Patient has 5/5 strength in the bilateral shoulders. However, limited range of motion secondary to bilateral shoulder pain. Procedure Details:: Procedure Details: Bilateral shoulder intra-articular injection Informed consent was obtained risk and benefits of the procedure were explained to the patient. Patient was taken to the procedure room. The bilateral shoulder was prepped using ChloraPrep. A 25-gauge needle was used posteriorly to inject 10 mL bupivacaine 0.25% and Depo-Medrol 40 mg. Patient tolerated procedure well with no complications. Plan and Disposition:: Patient was discharged without incident.
[2024-07-14 12:30] VITALS: BP 139/77; PULSE 66; RESP 18; O2SAT 95
[2024-07-14] MEDS: methylPREDNISolone ACETATE 80MG/ML VIAL 80 MG (12:30)
[2024-07-14] MEDS: LIDOCAINE 1% 5ML PF VIAL 5 ML (12:30)
[2024-07-14] MEDS: BUPIVACAINE 0.25% 10ML INJ 25 MG IJ (12:30)
[2024-07-14 12:32] VITALS: BP 139/77; PULSE 66; RESP 18; O2SAT 95
== END 2024-07-14 10:33 | disposition home or self-care (01) ==
PROVIDERS: PCP Internal Medicine Adolescent Medicine; Visit Provider Nurse Anesthetist, Certified Registered
DX: M19.011 Primary osteoarthritis, right shoulder (principal); M19.012 Primary osteoarthritis, left shoulder; M25.511 Pain in right shoulder; M25.512 Pain in left shoulder; G89.29 Other chronic pain
CPT/HCPCS: 20610; J1010

== ENCOUNTER 2024-07-27 10:32 | Outpatient (POV) | payer MEDICARE, SELFPAY ==
[2024-07-27 10:52] VITALS: BP 130/79; PULSE 67; RESP 14; O2SAT 97; BMI 23.7
--- NOTE | 2024-07-27 10:54 | A.OFFVIS_ITS ---
[facility] Disclaimer: The information contained in this section may have been updated after the patient was seen, as this information can be updated by other users. Medical History Abnormal echocardiogram CAD (coronary artery disease) Murmur, heart Numbness Other forms of angina pectoris Sinus bradycardia SOB (shortness of breath) Family History Other Unknown family medical history Social History Smoking Status: Never smoker second hand exposure: No alcohol intake: never substance use type: denies use current occupational status: other Travel in the last 8 weeks: None household members: spouse housing: house current occupation: [employer] current occupational exposures/hazards: No caffeine: Yes PM Subjective & Objective Subjective Subjective:: Patient is a pleasant 74-year-old male who presents today for follow-up of bilateral intra-articular shoulder injections on 07/14/2024. Today he rates his pain a 2 out of 10. He denies any new fall or injury. He does state that he had at least 80% improvement and feels like these are still working well. Patient does state that he has some pain in and around his low back that is worse with bending. He states that will get up there and pain however right now he does feel like it is more manageable. Patient does state that the hip pain he was experiencing that we had discussed in prior has improved. He denies any other changes. His Jeff has been reviewed and is appropriate. Review of Systems: General: No recent weight changes, no fever, no sleep disturbances Respiratory: No cough, no shortness of air, no recurring pulmonary infections Cardiovascular/peripheral vascular: No chest pain, no palpitations, no edema, no shortness of breath Gastrointestinal: No new onset incontinence, normal bowel movements reported Genitourinary: No new onset incontinence Musculoskeletal: Low back pain Psychiatric: [Normal mood/affect] Neurological: [Denies weakness in extremities], [denies balance issues] Pain at rest (0-10 scale): 2 Objective Objective:: Physical Exam: General: Alert and oriented x3, no acute distress, pleasant and cooperative Lungs: Respirations even and unlabored, symmetrical chest expansion Eyes: PERRL Musculoskeletal: Flexion and extension of lumbar [spine] somewhat guarded secondary to pain, [antalgic gait noted] Neurological: Speech clear, no gross sensory deficit Has patient had previous pain injection?: Yes Percent improvement in pain since last injection: 80% Conservative treatment options previously tried: Home exercise plan Length of treatment: Longer than 12 weeks Meds Home Medications and Allergies Home Medications ?Medication ?Instructions ?Recorded ?Confirmed ?Type ascorbic acid (vitamin C) 500 mg 500 mg PO BID Supplement 06/11/17 07/27/24 History tablet aspirin 81 mg tablet,delayed 81 mg PO DAILY prevent heart 06/11/17 07/27/24 History release (Aspir-) atorvastatin 40 mg tablet 40 mg PO QHS Cholesterol 06/11/17 07/27/24 History clopidogrel 75 mg tablet (Plavix) 75 mg PO DAILY Blood thinner 06/11/17 07/27/24 History methocarbamol 500 mg tablet 500 mg PO TID PRN pain 06/11/17 07/27/24 History metoprolol succinate 50 mg 50 mg PO DAILY bp 06/11/17 07/27/24 History tablet,extended release 24 hr nitroglycerin 0.4 mg sublingual 0.4 mg sublingual Q5M PRN cp 06/11/17 07/27/24 History tablet (Nitrostat) omeprazole 20 mg capsule,delayed 20 mg PO BID stomach 06/11/17 07/27/24 History release isosorbide mononitrate 30 mg 30 mg PO QAM bp 11/26/17 07/27/24 History tablet,extended release 24 hr ferrous sulfate 325 mg (65 mg 325 mg PO BID Supplement 12/31/18 07/27/24 History iron) tablet lorazepam 1 mg tablet 1 mg PO BID ANXIETY 12/31/18 07/27/24 History diclofenac sodium 1 % topical gel 4 g topical QID PRN Pain 3 months 02/09/20 07/27/24 Rx #100 grams gabapentin 100 mg capsule 100 mg PO TID Pain 02/09/20 07/27/24 History misoprostol 200 mcg tablet 200 mcg PO DAILY GERD 02/09/20 07/27/24 History finasteride 5 mg tablet 5 mg PO DAILY urinary retention 05/13/23 07/27/24 Rx #90 tabs meloxicam 15 mg tablet 15 mg PO DIRECTED Pain 05/13/23 07/27/24 History tamsulosin 0.4 mg capsule (Flomax) 0.8 mg (2 x 0.4 mg) PO DAILY 06/03/23 07/27/24 Rx prostate #180 caps New Prescriptions to Start Prescriptions: Allergies Allergy/AdvReac Type Severity Reaction Status Date / Time No Known Allergies Allergy Verified 06/03/23 11:36 Assessment and Plan *Assessment and plan (1) Low back pain: Status: Acute Category: Medical Code(s): M54.50 - Low back pain, unspecified Plan I did discuss with the patient that in future he may benefit from some lumbar injections such as the lumbar medial branch block. Patient is currently doing well overall and we will follow-up with these injections at his next visit to see if he would be a beneficial candidate. Patient will return to clinic in 1 month. Patient has been instructed to contact the clinic with any concerns before the next appointment. Dr. Quezada has reviewed this note and agrees with this plan of care. This note was dictated using voice recognition software and make contain errors or omissions. All injections are used with Lidocaine, Bupivacaine and Depo Medrol. Occasionally urine drug screen is needed to verify patient's compliance with our office pain contract. This is ordered based off specific treatments related to chronic pain with the potential to abuse certain medications.
== END 2024-07-27 23:59 | disposition home or self-care (01) ==
LOC: SC.PAIN 10:33
PROVIDERS: PCP Internal Medicine Adolescent Medicine; Visit Provider Nurse Practitioner Family
DX: M54.50 Low back pain, unspecified (principal); Z79.02 Long term (current) use of antithrombotics/antiplatelets
CPT/HCPCS: 99212; G0463

== ENCOUNTER 2024-08-26 10:33 | Outpatient (POV) | payer MEDICARE, SELFPAY ==
[2024-08-26 10:50] VITALS: BP 118/70; PULSE 65; RESP 18; O2SAT 98; BMI 26.6
--- NOTE | 2024-08-26 11:13 | A.OFFVIS_ITS ---
[facility] Disclaimer: The information contained in this section may have been updated after the patient was seen, as this information can be updated by other users. Medical History Abnormal echocardiogram CAD (coronary artery disease) Murmur, heart Numbness Other forms of angina pectoris Sinus bradycardia SOB (shortness of breath) Family History Other Unknown family medical history Social History Smoking Status: Never smoker second hand exposure: No alcohol intake: never substance use type: denies use current occupational status: other Travel in the last 8 weeks: None household members: spouse housing: house current occupation: [employer] current occupational exposures/hazards: No caffeine: Yes PM Subjective & Objective Subjective Subjective:: Patient is a pleasant 74-year-old male who presents today for follow-up. Today he rates his pain a 6 out of 10. He does state that he is having a lot more pain in his low back primarily along the left side that is worse with prolonged sitting or bending. He states that it does interfere with his ability perform activities of daily living such as cooking and cleaning. Patient is caring for his who has had a stroke and states when he is trying to do more activities to help care for her he has a lot of difficulty. Patient does also make mention that he does also have still continued shoulder pain but does feel like it is most prominent in the morning where he is just really stiff from sleeping and that it does ease off as the day goes on. Patient did previously have intra- articular shoulder injections in July that did do 80% relief. His Jeff has been reviewed and is appropriate. Review of Systems: General: No recent weight changes, no fever, no sleep disturbances Respiratory: No cough, no shortness of air, no recurring pulmonary infections Cardiovascular/peripheral vascular: No chest pain, no palpitations, no edema, no shortness of breath Gastrointestinal: No new onset incontinence, normal bowel movements reported Genitourinary: No new onset incontinence Musculoskeletal: Low back pain, hip pain Psychiatric: [Normal mood/affect] Neurological: [Denies weakness in extremities], [denies balance issues] Pain at rest (0-10 scale): 6 Objective Objective:: Physical Exam: General: Alert and oriented x3, no acute distress, pleasant and cooperative Lungs: Respirations even and unlabored, symmetrical chest expansion Eyes: PERRL Musculoskeletal: Flexion and extension of lumbar [spine] somewhat guarded secondary to pain, [antalgic gait noted] point tenderness along bilateral SIs with positive bilateral John's, Radha's, Gaenslen's, compression and distraction exam Neurological: Speech clear, no gross sensory deficit Has patient had previous pain injection?: No Conservative treatment options previously tried: Home exercise plan Length of treatment: Longer than 12 weeks Meds Home Medications and Allergies Home Medications ?Medication ?Instructions ?Recorded ?Confirmed ?Type ascorbic acid (vitamin C) 500 mg 500 mg PO BID Supplement 06/11/17 08/26/24 History tablet aspirin 81 mg tablet,delayed 81 mg PO DAILY prevent heart 06/11/17 08/26/24 History release (Aspir-) atorvastatin 40 mg tablet 40 mg PO QHS Cholesterol 06/11/17 08/26/24 History clopidogrel 75 mg tablet (Plavix) 75 mg PO DAILY Blood thinner 06/11/17 08/26/24 History methocarbamol 500 mg tablet 500 mg PO TID PRN pain 06/11/17 08/26/24 History metoprolol succinate 50 mg 50 mg PO DAILY bp 06/11/17 08/26/24 History tablet,extended release 24 hr nitroglycerin 0.4 mg sublingual 0.4 mg sublingual Q5M PRN cp 06/11/17 08/26/24 History tablet (Nitrostat) omeprazole 20 mg capsule,delayed 20 mg PO BID stomach 06/11/17 08/26/24 History release isosorbide mononitrate 30 mg 30 mg PO QAM bp 11/26/17 08/26/24 History tablet,extended release 24 hr ferrous sulfate 325 mg (65 mg 325 mg PO BID Supplement 12/31/18 08/26/24 History iron) tablet lorazepam 1 mg tablet 1 mg PO BID ANXIETY 12/31/18 08/26/24 History diclofenac sodium 1 % topical gel 4 g topical QID PRN Pain 3 months 02/09/20 08/26/24 Rx #100 grams gabapentin 100 mg capsule 100 mg PO TID Pain 02/09/20 08/26/24 History misoprostol 200 mcg tablet 200 mcg PO DAILY GERD 02/09/20 08/26/24 History finasteride 5 mg tablet 5 mg PO DAILY urinary retention 05/13/23 08/26/24 Rx #90 tabs meloxicam 15 mg tablet 15 mg PO DIRECTED Pain 05/13/23 08/26/24 History tamsulosin 0.4 mg capsule (Flomax) 0.8 mg (2 x 0.4 mg) PO DAILY 06/03/23 08/26/24 Rx prostate #180 caps New Prescriptions to Start Prescriptions: Allergies Allergy/AdvReac Type Severity Reaction Status Date / Time No Known Allergies Allergy Verified 06/03/23 11:36 Assessment and Plan *Assessment and plan (1) Bilateral sacroiliitis: Status: Acute Category: Medical Code(s): M46.1 - Sacroiliitis, not elsewhere classified Plan Patient is experiencing worsening pain along the low back and bilateral hips. They did have limited range of motion of the lumbar spine along with point tenderness along bilateral SI joints and a positive bilateral John's, Radha's, Gaenslen's, compression and distraction exam. I did discuss with the patient that I do believe they would benefit from bilateral SI injections. Risk and benefits were discussed with the patient and they would like to proceed forward with this option. Patient has tried and failed conservative therapy including continued at home stretching exercise for longer than 12 weeks. Patient has had chronic low back pain for longer than 3 months. Patient has not ever had any SI injections and this will be a diagnostic injection with less than 1 mL of solution to be injected. If he does get significant relief we will plan on proceeding forward with future SI injections with the possibility of him being a candidate for a SI fusion at a later date. Patient will be scheduled for bilateral SI injections under fluoroscopy. Patient has been instructed to contact the clinic with any concerns before the next appointment. Dr. Quezada has reviewed this note and agrees with this plan of care. This note was dictated using voice recognition software and make contain errors or omissions. All injections are used with Lidocaine or Bupivacaine and dexamethasone.
== END 2024-08-26 23:59 | disposition home or self-care (01) ==
LOC: SC.PAIN 10:34
PROVIDERS: PCP Internal Medicine Adolescent Medicine; Visit Provider Nurse Practitioner Family
DX: M46.1 Sacroiliitis, not elsewhere classified (principal); Z73.89 Other problems related to life management difficulty
CPT/HCPCS: 99212; G0463

== ENCOUNTER 2024-09-24 09:54 | Outpatient (RCR) | payer MEDICARE, SELFPAY ==
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
== END 2024-09-24 23:59 | disposition home or self-care (01) ==
LOC: OT 09:54
PROVIDERS: Visit Provider Internal Medicine Adolescent Medicine
DX: M77.01 Medial epicondylitis, right elbow (principal)
CPT/HCPCS: 97166; 97530

== ENCOUNTER 2024-10-12 10:00 | Outpatient (RCR) | payer MEDICARE, SELFPAY | END 2024-10-12 23:59 | disposition home or self-care (01) | LOC: OT 10:00 | PROVIDERS: Visit Provider Internal Medicine Adolescent Medicine | DX: M77.01 Medial epicondylitis, right elbow (principal) | CPT/HCPCS: 97014; 97110; 97140; G0283 ==

== ENCOUNTER 2024-10-13 09:19 | Day surgery (SDC) | payer MEDICARE, SELFPAY ==
[2024-10-13 09:27] VITALS: BP 129/73; PULSE 60; RESP 16; TEMP 36.3; O2SAT 96; BMI 23.7
[2024-10-13 10:07] VITALS: BP 127/56; PULSE 57; RESP 18; O2SAT 96
[2024-10-13] MEDS: BUPIVACAINE 0.25% 10ML INJ 25 MG IJ (10:07)
[2024-10-13] MEDS: DEXAMETHASONE 10MG/ML 1ML VIAL 10 MG (10:07)
[2024-10-13] MEDS: LIDOCAINE 1% 5ML PF VIAL 5 ML (10:07)
[2024-10-13 10:14] VITALS: BP 127/56; PULSE 57; RESP 18; O2SAT 96
--- NOTE | 2024-10-13 10:18 | P.PCN_ITS ---
Procedure Date: 10/13/24 Time: 10:10 Anesthesiologist:: Dilan Pavon CRNA Complications:: None Pre-procedure Diagnosis:: Bilateral sacroiliitis Post-procedure Diagnosis:: Same Indications for Procedure:: Patient is a very pleasant 74-year-old male who comes our clinic today for bilateral sacroiliac joint injections cortisone local anesthetic. Patient describes low lumbar back pain off the midline bilaterally. Bilateral posterior hip pain. Difficulty transitioning from sitting to standing. Difficulty with ambulation due to the low lumbar back pain. He rates his pain 7/10. Patient tripped and fell to his right knee prior to entering the procedure room. He got up on his own. I offered the patient to go to the emergency room for evaluation and x-ray if necessary. He declined. He said he was not having any pain. A little discomfort over the lateral border of the right foot. Procedure Details:: Procedure: Bilateral sacroiliac joint injections under fluoroscopy Informed consent was obtained and the risks and benefits of the procedure were explained to the patient.~ The patient was taken to the procedure room and noninvasive monitors were placed including a noninvasive blood pressure cuff and pulse oximeter.~ The patient was placed prone on the procedure table. Both hips were cleansed using Betadine as a cleansing solution. C-arm fluoroscopy was used to view the right sacroiliac joint.~ The skin and subcutaneous tissues were anesthetized using lidocaine 1.5% and a 25-gauge needle.~ After this, a 22-gauge spinal needle was inserted under fluoroscopic guidance into the inferior aspect of the right sacroiliac joint.~ Omnipaque dye was injected and good spread was seen throughout the joint.~ After this, approximately 5 mL of bupivacaine, 0.25% and Depo-Medrol, 40 mg was incrementally injected into the right sacroiliac joint. We then moved to the left sacroiliac joint.~ The skin and subcutaneous tissues were anesthetized using lidocaine 1.5% and a 25-gauge needle.~ After this, a 22- gauge spinal needle was inserted under fluoroscopic guidance into the inferior aspect of the left sacroiliac joint.~ Omnipaque dye was injected and good spread was seen throughout the joint. After this, approximately 5 mL of bupivacaine, 0.25% and Depo-Medrol, 40 mg was incrementally injected into the left sacroiliac joint.~ The patient tolerated the procedure well with no complications. The patient was observed in the Pain Clinic and then was discharged home neurologically intact. Plan and Disposition:: Patient was discharged without incident.
[2024-10-13 10:25] VITALS: BP 114/68; PULSE 61; RESP 16; O2SAT 98
== END 2024-10-13 10:25 | disposition home or self-care (01) ==
PROVIDERS: PCP Internal Medicine Adolescent Medicine; Visit Provider Nurse Anesthetist, Certified Registered
DX: M46.1 Sacroiliitis, not elsewhere classified (principal); I25.10 Atherosclerotic heart disease of native coronary artery without angina pectoris; R01.1 Cardiac murmur, unspecified; Z79.899 Other long term (current) drug therapy; Z79.82 Long term (current) use of aspirin
CPT/HCPCS: G0260; J0665; J1100; J2003

== ENCOUNTER 2024-10-15 10:00 | Emergency (ER) | payer MEDICARE, SELFPAY ==
[2024-10-15 10:00] VITALS: BP 136/72; PULSE 62; RESP 18; TEMP 36.5; O2SAT 96; BMI 23.7
--- NOTE | 2024-10-15 10:11 | XR_ITS ---
FINAL REPORT CLINICAL HISTORY: fall /10, swelling, bruising, pain COMPARISON: None FINDINGS: RIGHT FOOT 3 views of the right foot were obtained. There is a transverse mildly displaced fracture of the base of the fifth metatarsal, with associated soft tissue swelling. Visualized joint spaces are normally aligned. IMPRESSION: Transverse mildly displaced fracture of the base of the fifth metatarsal, with associated soft tissue swelling. Reviewed, Interpreted and Dictated by Rodríguez Finch MD Transcribed by Dede Schneider Authenticated and [facility]
--- NOTE | 2024-10-15 10:12 | XR_ITS ---
FINAL REPORT CLINICAL HISTORY: fall /10, swelling, bruising, pain COMPARISON: None FINDINGS: RIGHT ANKLE 3 views of the right ankle were obtained. There is no acute fracture or dislocation. The mortise is intact. Visualized joint spaces are normally aligned. Lateral soft tissue swelling is present. IMPRESSION: Lateral soft tissue swelling without acute bony abnormality. Reviewed, Interpreted and Dictated by Rodríguez Finch MD Transcribed by Dede Schneider Authenticated and . [facility]
--- NOTE | 2024-10-15 10:26 | PC.NURSE ---
XR at bedside with portable xrays
[2024-10-15 10:30] VITALS: BP 111/67; PULSE 69; O2SAT 94
[2024-10-15] MEDS: IBUPROFEN 600 MG TABLET PO (10:31)
--- OUTSIDE RECORDS SUMMARY | 2024-10-15 10:37 | XMS_ITS | Clinical Summary ---
Author Organization Healthcare Address [address] [place] [address] Care Team Providers Care Drying Machine Operator Name Role Phone Reyes Schroeder MD Primary Care Provider + [phone] Family History Medical History Relation Name Comments Diabetes Other 1 Hyperlipidemia Other 2 Hypertension Other 3 Relation Name Status Comments Other 1 Other 2 Other 3 Social History Tobacco Use Types Packs/Day Years Used Date Smoking Tobacco: Never Assessed Sex and Gender Information Value Date Recorded Sex Assigned at Not on file Legal Sex Male 6:08 PM EDT Gender Identity Not on file Sexual Orientation Not on file Last Filed Vital Signs Vital Sign Reading Time Taken Comments Blood Pressure 125/80 07/06/2020 1:26 PM EST Pulse 76 07/06/2020 1:26 PM EST Temperature - - Respiratory Rate - - Oxygen Saturation - - Inhaled Oxygen Concentration - - Weight 71.6 kg (157 lb 13.6 oz) 07/06/2020 1:39 PM EST Height 180.3 cm (5' 11 ) 07/06/2020 1:26 PM EST Body Mass Index 22.02 07/06/2020 1:26 PM EST Plan of Treatment Not on file Care Teams Drying Machine Operator Relationship Specialty Start Date End Date Reyes Schroeder MD [address] [place] [id number] PCP - General 09/16/20
--- OUTSIDE RECORDS SUMMARY | 2024-10-15 10:37 | XMS_ITS | Clinical Summary ---
Author Organization [facility] Address [address] [place] [address] Phone Care Team Providers Care As400 Consultant Name Role Phone Campbell Aquino MD [ ] Conditions or Problems Problem Name Problem Code Onset Date Status Entry Date Provider Comment Standard Description Annotate Fever of unknown origin 8835632 (SNOMED CT) 08/21 Inactive 08/21 Felicita W Pyrexia of unknown origin Postop hematoma of a circulatory system structure following a cardiac catheterizat ion 370153251 (SNOMED CT) 08/21 Active 08/24 Felicita W Postoperative hemorrhage Pyelonephrit is, acute 36330515 (SNOMED CT) 08/22 Active 08/22 Campbell Aquino MD Acute pyelonephritis CAD (coronary artery disease) 17380912 (SNOMED CT) 08/21 Active 08/21 Campbell Aquino MD Coronary arteriosclerosi s Acute STEMI involving left anterior descending coronary artery 65282525180 9103 (SNOMED CT) 08/21 Resolved 08/21 Campbell Aquino MD Acute ST segment elevation myocardial infarction involving left anterior descending coronary artery Cardiac device/impla nt/graft, infection/in flammatory reaction, initial encounter T82.7xxA (ICD-10-CM) 08/21 Resolved 08/21 Campbell Aquino MD Infection and inflammatory reaction due to other cardiac and vascular devices, implants and grafts, initial encounter Fever of unknown origin 5796625 (SNOMED CT) 08/21 Removed 08/21 Campbell Aquino MD Pyrexia of unknown origin Presence of cardiac stent 988357850 (SNOMED CT) 08/21 Active 08/21 Merced Parker History of placement of stent for coronary artery disease Cardiac device/impla nt/graft, infection/in flammatory reaction, initial encounter T82.7xxA (ICD-10-CM) 08/21 Removed 08/21 Merced Parker Infection and inflammatory reaction due to other cardiac and vascular devices, implants and grafts, initial encounter Acute STEMI involving left anterior descending coronary artery [id number] 9103 (SNOMED CT) 08/21 Removed 08/[address] segment elevation myocardial infarction involving left anterior descending coronary artery Benign Essential Hypertension 76915122 (SNOMED CT) 08/21 Active 08/21 Merced Parker Benign hypertension Medications Medication Instructions Start Date Stop Date Generic Name NDC Provider CUBICIN 500 MG INTRAVENOUS SOLUTION RECONSTITUTED 500mg IV Q24hrs/ INPAT DAPTOMYCIN 12188251777 Traci Pacheco RN CEFTRIAXONE SODIUM 2 GM SOLR 2 grams IV Q24hrs/ INPAT CEFTRIAXONE SODIUM 83703641621 Traci Pacheco RN CIPRO 500 MG TABS 1 by mouth twice a day CIPROFLOXACIN HCL 69258854328 Campbell Aquino MD CUBICIN 500 MG INTRAVENOUS SOLUTION RECONSTITUTED 500mg IV Q24hrs/ INPAT DAPTOMYCIN 80814949023 Evelia Stacy RN CEFTRIAXONE SODIUM 2 GM SOLR 2 grams IV Q24hrs/ INPAT CEFTRIAXONE SODIUM 92958133763 Evelia Stacy RN CEFTRIAXONE SODIUM 2 GM SOLR 2 grams IV today CEFTRIAXONE SODIUM 12666615397 Campbell Aquino MD CUBICIN 500 MG INTRAVENOUS SOLUTION RECONSTITUTED 500mg IV today DAPTOMYCIN 17185292726 Campbell Aquino MD ERGOCALCIFEROL 1.25 MG (84087 UT) CAPS take 1 capsule twice weekly ERGOCALCIFEROL 74173921266 Jarred Esquivel VITAMIN B-12 ER 1000 MCG CR-TABS take 1 tablet daily CYANOCOBALAMIN 04681893891 Jarred Esquivel OMEPRAZOLE 20 MG TBEC take 1 tablet b.i.d. OMEPRAZOLE 11937011947 Jarred Esquivel METOPROLOL SUCCINATE ER 50 MG [id number] take 1 tablet daily METOPROLOL SUCCINATE 86388978498 Jarred Esquivel METHOCARBAMOL 500 MG TABS take 1-2 tablets t.i.d. as needed METHOCARBAMOL 53465268385 Jarred Esquivel MELOXICAM 15 MG TABS take 1 tablet daily MELOXICAM 48205102121 Jarred Esquivel LORAZEPAM 1 MG TABS take 1 tablet b.i.d. LORAZEPAM 41959405237 Jarred Esquivel LISINOPRIL 5 MG TABS take 1 tablet at bedtime LISINOPRIL 47252470095 Jarred Esquivel HYDROCODONE-ACETA MINOPHEN 5-325 MG TABS take 1 tablet t.i.d. HYDROCODONE-ACET AMINOPHEN 20710929903 Jarred Esquivel FLOMAX 0.4 MG ORAL CAPSULE take 1 capsule at bedtime TAMSULOSIN HCL 17456314306 Jarred Esquivel MULTIVITAMINS ORAL CAPSULE take 1 capsule daily MULTIPLE VITAMIN 35838918756 Jarred Esquivel ASPIRIN 81 81 MG TBEC take 1 tablet daily ASPIRIN 24863350896 Jarred Esquivel Medications Administered No information available. Allergies, Adverse Reactions, Alerts Allergy Name Reaction Description Start Date Severity Statu s Provider CODEINE SULFATE Critical Active Joey Esquivel Results Date Name Value Unit Range Flag Description Lab Report: C-Reactive Prote in CRPCARDRISK 40.3 mg/L 0.000-10.0 H C reac tive protein [Mass/volume] in Serum or Plasma Lab Report: CPK CPK 75 U/L 26-174 N Creatine marylu se [Enzymatic activity/volume] in Serum or Plasma Lab Report: Comprehensive Me tabolic Panel ANIONGAP 9 mmol/L 3-11 N anion gap, s jeanmarie GFRC 70 mL/min/1 .73m2 Glomerular Filtration Rate Calculation ALBUMIN 4.3 g/dL 3.2-4.8 N Albumin [Mass/volume] in Serum or Plasma PROTEIN, TOT 6.7 g/dL 5.7-8.2 N Protein [Mass/volume] in Serum or Plasma BILI TOTAL 1.8 mg/dL 0.3-1.2 H Bilirubin. total [Mass/volume] in Serum or Plasma SGPT (ALT) 12 U/L 7-40 N Alanine aminotransferase [Enzymatic activity/volume] in Serum or Plasma SGOT (AST) 18 U/L 0-33 N Aspartate aminotransferase [Enzymatic activity/volume] in Serum or Plasma ALK PHOS 78 U/L 25-100 N Alkaline phosphatase [Enzymatic activity/volume] in Blood CALCIUM 9.5 mg/dL 8.7-10.4 N Calcium [Moles/volume] in Serum or Plasma CO2 26 mmol/L 20-31 N Carbon dioxid e, total [Moles/volume] in Venous blood CHLORIDE 105 mmol/L 99-109 N Chloride [Moles/volume] in Serum or Plasma POTASSIUM 4.6 mmol/L 3.5-5.5 N Potassium [Moles/volume] in Serum or Plasma SODIUM 140 mmol/L 132-146 N Sodium [Moles/volume] in Serum or Plasma CREATININE 1.1 mg/dL 0.6-1.3 N Creatinine [Mass/volume] in Serum or Plasma BUN 21 mg/dL 9-23 N Urea nitrogen [Mass/volume] in Serum or Plasma GLUCOSE SER 95 mg/dL 70-100 N Glucose [Mass/volume] in Serum or Plasma Lab Report: CBC without Diff erential PLATELETS 262 10*3/mm3 150-450 N Platelets [#/volume] in Blood by Automated count RDW_ 13.4 11.3-14.5 N RDW, no uni ts MCHC 34.5 G/DL 32.0-36.0 N MCHC [Mass/ volume] by Automated count MCH 30.1 pg 27.0-31.0 N MCH [Entiti c mass] by Automated count MCV 87.3 fL 80.0-99.0 N MCV [Entiti c volume] by Automated count HCT 43.8 % 38.9-50.9 N Hematocrit [Volume Fraction] of Blood by Automated count HGB 15.1 g/dL 13.1-17.5 N Hemoglobin [Mass/volume] in Blood RBC 5.02 M/MCL 10*6/mm3 4.20-5.76 N Erythro cytes [#/volume] in Blood by Automated count WBC 15.02 10*3/mm3 3.50-10.80 H Leukocyte s [#/volume] in Blood by Automated count Lab Report: ESR (Sed Rate) ESR 3 mm/h 0-20 N Erythrocyte sedimentation rate by Westergren method Lab Report: Urinalysis w/Cul ture if Indicated UROBILINOGEN 1.0 0.2-1.0 N Urobilin ogen [Presence] in Urine by Test strip WBC DIPSTK U Small Negative A Leukocy te esterase [Presence] in Urine by Test strip NITRATE UR Negative Negative N Nitrate [Presence] in Urine PROTEIN, URN Trace Negative A protein , urine, semiquantitative (dipstick) BLOOD UR Negative Negative N BLOOD, URI NE (hematuria) BILIRUBIN UR Small Negative A Bilirub in.total [Presence] in Urine by Test strip KETONES URN Trace Negative A Ketones [Mass/volume] in Urine by Test strip GLUC UR JANET 0.1 g/dL Units converted. See lab report for original value. A Glucose [Mass/volume] in Urine SPEC GR URIN 1.027 1.001-1.03 N Speci fic gravity of Urine by Test strip PH URINE 6.0 4.5-8.0 N pH of Urine by Test strip APPEARANCE U Clear Appearan ce of Urine UA COLOR Dk Yellow Color of U rine Lab Report: Urine Microscopi c HYAL CAST UR 21-30 /[LPF] 0-6 A Hyaline casts [#/area] in Urine sediment by Microscopy low power field BACTERIA URN None Seen None Seen N Bact eria [#/area] in Urine sediment by Microscopy high power field EPI CELL UR 3-6 /[LPF] None Seen, A Epithe lial cells [#/area] in Urine sediment by Microscopy high power field URBC 0-2 /hpf /[HPF] None Seen, N Erythrocy paula [#/area] in Urine sediment by Microscopy high power field UWBC 21-30 None Seen, A Leukocytes [#/area] in Urine sediment by Microscopy high power field Lab Report: Culture Blood CULTURE Specimen/Lisbeth rce: Blood/RAC culture, comment Office Visit: [id number] MEDS REVIEW Done Documenta tion of current medications (procedure) SMOK STATUS Never 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 Plan of Care Type Date Detail Pending order New IV antibioti c Pending order New Oral Antibio tic Pending order US, Abdomen RUQ Pending order US, Abdomen LUQ Pending order New IV antibioti c Pending order PIV/Butterfly Pending order Blood Cultures X 2 Pending order CMP Pending order CBC w/o Differen tial Pending order C- reactive prot ein Pending order Sedimentation Ra te (ESR) Pending order CPK Pending order Urinalysis with microscopic exam Pending order Urine Culture & Sensitivity Pending order X-Ray, Chest, PA & Lateral Pending order Stat Weekly Labs Patient education Ceftriaxone%20 (Injection)%20(Injectable) Patient education Daptomycin%20( Injection)%20(Injectable) Patient education Ceftriaxone%20 (Injection)%20(Injectable) Patient education Daptomycin%20( Injection)%20(Injectable) Procedures Code Procedure Name Date Entry Date CPT-dejah New IV antibiotic CPT-19873 PIV/Butterfly CPT-bcx2 Blood Cultures X2 CPT-66181 CMP CPT-99303 CBC w/o Differential CPT-20924 C- reactive protein CPT-08007 Sedimentation Rate (ESR) 201 10/07/17 [id number], [id number] CPK CPT-73269 Urinalysis with microscopic exam CPT-39235 Urine Culture & Sensitivity CPT-60574 X-Ray, Chest, PA & Lateral 2 CPT- stat weekly Stat Weekly Labs Vital Signs Date Name Value Unit Description BMI (Body Mass Index) 21.20 kg/m2 Bod y Mass Index (Ratio) Body Temperature 97.8 [degF] temperat ure E&M BP Diastolic 70 mm[Hg] blood pressu re, diastolic BP Systolic 142 mm[Hg] blood pressur e, systolic Heart Rate 64 /min pulse rate Respiratory Rate 16 /min respirat ory rate E&M Weight Measured 152 [lb_av] weight E& M Weight Measured 152 [lb_av] weight E& M Height 71 [in_us] height E&M Immunizations No information available. Advance Directives No information available.
--- OUTSIDE RECORDS SUMMARY | 2024-10-15 10:37 | XMS_ITS | Data Portability ---
Author Organization ANTONIO JULIEN Barron [place] [facility] Address [address] [facility] [address] [place] [address] Assessment No assessment recorded. Plan of Treatment Reminders Order Date Submit Date Provider Last Modified By Organization Details Last Modified Time Details Appointments None recorded. Lab TSH, serum or plasma 2017 018 [facility], [address] [place] [address], [id number], 8 13:09:22 CBC w/ auto diff 2017 018 [facility], [address] [place] [address], [address], 8 12:42:03 CMP, serum or plasma 2017 018 [facility], [address] [place] [address], [address], 8 13:04:03 magnesium, QN, serum or plasma 2017 018 [facility], [address] [place] [address], [address], 8 13:03:59 vitamin D, 25-hydroxy , total, serum 2017 018 [facility], [address] [place] [address], [address], 8 13:39:00 CK (creatine kinase), total, serum 2017 018 [facility], [address] [place] [address], [address], 8 13:04:02 vitamin B12 + folate, serum or blood 2017 018 [facility], [address] [place] [address], [id number], 8 13:39:23 iron + total iron-isha ng capacity (TIBC), serum 2017 018 [facility], [address] [place] [address], [address], 8 13:04:01 Referral None recorded. Procedures None recorded. Surgeries None recorded. Imaging XR, shoulder, 2 or more view 2017 [facility], [address] [place] [address], [address], 8 13:01:23 Medication Orders tramadol 50 mg tablet 2018 019 [facility] #[id number], [address], [id number], 9 14:15:36 meloxicam 15 mg tablet 2018 019 [facility], [address] [facility], [place], [address], 9 13:59:33 Depo-Medro l 80 mg/mL suspension for injection 2018 019 [email or web address] Not available 9 16:55:37 tramadol 50 mg tablet 2018 019 [facility] #[id number], [address], [id number], 9 16:04:16 celecoxib 200 mg capsule 2017 018 [facility] #[id number], [address] [employer] [address], ANTONIO Cespedes, [id number], 9 16:02:59 tramadol 50 mg tablet 2017 018 [facility] #[id number], [address] [facility] [address], [place], [id number], 8 16:33:57 meloxicam 15 mg tablet 2017 018 [facility] #[id number], [address] [employer] [address], [place] Ces[place], [id number], 9 13:59:33 tramadol 50 mg tablet 2017 018 [facility] #[id number], [address] [employer] [address], [place] Cesped[place], [id number], 8 16:35:05 meloxicam 15 mg tablet 2017 018 [facility] #[id number], [address] [facility] [address], [place] Cesped[place], [id number], 9 13:59:33 Patient TargetsNo targets recorded. Patient Instructions Encounter Date Encounter Id Patient Instructions Last Modified By Organization Details Last Modified Time 08/29/2017 [id number] osteoarthritis: care instructions smoberly Not available 08/29/2017 11:20:06 iron deficiency anemia: care instructions smoberly Not available 08/29/2017 11:19:42 11/27/2017 [id number] osteoarthritis: care instructions smoberly Not available 11/27/2017 16:35:00 02/24/2018 [id number] osteoarthritis: care instructions smoberly Not available 02/24/2018 16:33:52 05/22/2018 [id number] neck pain: care instructions smoberly Not available 05/22/2018 16:16:17 11/21/2018 [id number] osteoarthritis: care instructions smoberly Not available 11/21/2018 14:15:34 Reason for Referral None Reported. Results Created Date Observation Date Name Description Value Unit Range Abnormal Flag Note LastModifiedBy Organization Detail LastModifiedTime 08/30/19 18 08/29/2017 CBC w/ auto diff white blood cells 8.6 K/uL 3.8-10 .8 normal Not Available [facility] [address] [place] [address], [address], 08/29/2017 12:42:03 08/30/19 18 08/29/2017 CBC w/ auto diff red blood cells 4.55 M/uL 4.20-5 .80 normal Not Available [facility] [address] [place] [address], [address], 08/29/2017 12:42:03 08/30/19 18 08/29/2017 CBC w/ auto diff hemoglobin 13.9 g/dL 14.0-1 8.0 low Not Available [facility] [address] [place] [address], [address], 08/29/2017 12:42:03 08/30/19 18 08/29/2017 CBC w/ auto diff hematocrit 39.8 % 40.0-5 2.0 low Not Available [facility] [address] [place] [address], [address], 08/29/2017 12:42:03 08/30/19 18 08/29/2017 CBC w/ auto diff MCV 88 fL 80-100 normal Not Available [facility] [address] [place] [address], [address], 08/29/2017 12:42:03 08/30/19 18 08/29/2017 CBC w/ auto diff MCH 31 pg 26-35 normal Not Available [facility] [address] [place] [address], [address], 08/29/2017 12:42:03 08/30/19 18 08/29/2017 CBC w/ auto diff MCHC 35 g/dL 32-36 normal Not Available [facility] [address] [place] [address], [address], 08/29/2017 12:42:03 08/30/19 18 08/29/2017 CBC w/ auto diff RDW 13.0 % 11.0-1 5.0 normal Not Available [facility] [address] [place] [address], [address], 08/29/2017 12:42:03 08/30/19 18 08/29/2017 CBC w/ auto diff MPV 8.7 fL 6.2-10 .5 normal Not Available [facility] [address] [place] [address], [address], 08/29/2017 12:42:03 08/30/19 18 08/29/2017 CBC w/ auto diff platelet count 320 K/uL 130-40 0 normal Not Available [facility] [address] [place] [address], [address], 08/29/2017 12:42:03 08/30/19 18 08/29/2017 CBC w/ auto diff neutrophil,a bsolute 5.6 K/uL 1.6-8. 4 normal Not Available [facility] [address] [place] [address], [address], 08/29/2017 12:42:03 08/30/19 18 08/29/2017 CBC w/ auto diff lymphocyte,a bsolute 2.1 K/uL 0.4-5. 1 normal Not Available [facility] [address] [place] [address], [address], 08/29/2017 12:42:03 08/30/19 18 08/29/2017 CBC w/ auto diff monocyte,abs olute 0.6 K/uL 0.0-1. 2 normal Not Available [facility] [address] [place] [address], [address], 08/29/2017 12:42:03 08/30/19 18 08/29/2017 CBC w/ auto diff eosinophil,a bsolute 0.2 K/uL 0.0-0. 8 normal Not Available [facility] [address] [place] [address], [address], 08/29/2017 12:42:03 08/30/19 18 08/29/2017 CBC w/ auto diff basophil,abs olute 0.1 K/uL 0.0-0. 3 normal Not Available [facility] [address] [place] [address], [address], 08/29/2017 12:42:03 08/30/19 18 08/29/2017 CBC w/ auto diff % neutrophils 65.5 % 42.0-7 8.0 normal Not Available [facility] [address] [place] [address], [address], 08/29/2017 12:42:03 08/30/19 18 08/29/2017 CBC w/ auto diff % lymphocytes 24.4 % 11.0-4 7.0 normal Not Available [facility] [address] [place] [address], [address], 08/29/2017 12:42:03 08/30/19 18 08/29/2017 CBC w/ auto diff % monocytes 7.4 % 0.0-11 .0 normal Not Available [facility] [address] [place] [address], [address], 08/29/2017 12:42:03 08/30/19 18 08/29/2017 CBC w/ auto diff % eosinophils 2.1 % 0.0-7. 0 normal Not Available [facility] [address] [place] [address], [address], 08/29/2017 12:42:03 08/30/19 18 08/29/2017 CBC w/ auto diff % basophils 0.6 % 0.0-3. 0 normal Not Available [facility] [address] [place] [address], [address], 08/29/2017 12:42:03 08/30/19 18 08/29/2017 CBC w/ auto diff nucleated red cells 0.1 % 0.0-0. 9 normal Not Available [facility] [address] [place], [address], 08/29/2017 12:42:03 08/30/19 18 08/29/2017 CBC w/ auto diff nucleated RBCs, absolute 0.01 K/uL not estab. normal Not Available [facility] [address] [place] [address], [address], 08/29/2017 12:42:03 08/30/19 18 08/29/2017 magne sium, QN, serum or plasm a magnesium 2.16 mg/dL 1.60-2 .60 normal Not Available [facility] [address] [place] [address], [address], 08/29/2017 13:03:59 08/30/19 18 08/29/2017 iron + total iron- isha ng capac ity (TIBC ), serum iron 134 ug/dL 59-158 normal Not Available [facility] [address] [place] [address], [address], 08/29/2017 13:04:01 08/30/19 18 08/29/2017 iron + total iron- isha ng capac ity (TIBC ), serum total iron binding cap. 215 ug/dL _(margarita c) 250-45 0 low Not Available [facility] [address] [place] [address], [address], 08/29/2017 13:04:01 08/30/19 18 08/29/2017 iron + total iron- isha ng capac ity (TIBC ), serum unsat.iron binding cap. 81 ug/dL 112-34 7 low Not Available [facility] [address] [place] [address], [address], 08/29/2017 13:04:01 08/30/19 18 08/29/2017 iron + total iron- isha ng capac ity (TIBC ), serum % saturation 62 %_(ca lc) 20-50 high Not Available [facility] [address] [place] [address], [address], 08/29/2017 13:04:01 08/30/19 18 08/29/2017 CK (crea carlitos kinas e), total , serum creatine kinase 49 U/L 0-189 normal Not Available [facility] [address] [place] [address], [address], 08/29/2017 13:04:02 08/30/19 18 08/29/2017 CMP, serum or plasm a glucose 96 mg/dL 74-100 normal Not Available [facility] [address] [place] [address], [address], 08/29/2017 13:04:03 08/30/19 18 08/29/2017 CMP, serum or plasm a blood urea nitrogen 20 mg/dL 6-20 normal Not Available [facility] [address] [place] [address], [address], 08/29/2017 13:04:03 08/30/19 18 08/29/2017 CMP, serum or plasm a creatinine 1.11 mg/dL 0.70-1 .25 normal Not Available [facility] [address] [place] [address], [address], 08/29/2017 13:04:03 08/30/19 18 08/29/2017 CMP, serum or plasm a BUN/creatini ne ratio 18 (calc ) 10-20 normal Not Available [facility] [address] [place] [address], [address], 08/29/2017 13:04:03 08/30/19 18 08/29/2017 CMP, serum or plasm a sodium 140 mmol/ L 136-14 5 normal Not Available [facility] [address] [place] [address], [address], 08/29/2017 13:04:03 08/30/19 18 08/29/2017 CMP, serum or plasm a potassium 4.0 mmol/ L 3.4-5. 0 normal Not Available [facility] [address] [place] [address], [address], 08/29/2017 13:04:03 08/30/19 18 08/29/2017 CMP, serum or plasm a chloride 101 mmol/ L 98-107 normal Not Available [facility] [address] [place] [address], [address], 08/29/2017 13:04:03 08/30/19 18 08/29/2017 CMP, serum or plasm a carbon dioxide 27 mmol/ L 20-32 normal Not Available [facility] [address] [place] [address], [address], 08/29/2017 13:04:03 08/30/19 18 08/29/2017 CMP, serum or plasm a anion gap 12 (calc ) 7-25 normal Not Available [facility] [address] [place] [address], [address], 08/29/2017 13:04:03 08/30/19 18 08/29/2017 CMP, serum or plasm a calcium 9.2 mg/dL 8.6-10 .2 normal Not Available [facility] [address] [place] [address], [address], 08/29/2017 13:04:03 08/30/19 18 08/29/2017 CMP, serum or plasm a total protein 6.6 g/dL 6.4-8. 3 normal Not Available [facility] [address] [place] [address], [address], 08/29/2017 13:04:03 08/30/19 18 08/29/2017 CMP, serum or plasm a albumin 4.3 g/dL 3.5-5. 2 normal Not Available [facility] [address] [place] [address], [address], 08/29/2017 13:04:03 08/30/19 18 08/29/2017 CMP, serum or plasm a globulin 2.3 g/dL_ (calc ) 1.5-4. 5 normal Not Available [facility] [address] [place] [address], [address], 08/29/2017 13:04:03 08/30/19 18 08/29/2017 CMP, serum or plasm a albumin/glob ulin ratio 1.9 (calc ) 1.1-2. 5 normal Not Available [facility] [address] [place] [address], [address], 08/29/2017 13:04:03 08/30/19 18 08/29/2017 CMP, serum or plasm a bilirubin, total 0.7 mg/dL 0.1-1. 2 normal Not Available [facility] [address] [place] [address], [address], 08/29/2017 13:04:03 08/30/19 18 08/29/2017 CMP, serum or plasm a alkaline phosphatase 84 U/L 40-130 normal Not Available [facility] [address] [place] [address], [address], 08/29/2017 13:04:03 08/30/19 18 08/29/2017 CMP, serum or plasm a AST 13 U/L 0-40 normal Not Available [facility] [address] [place] [address], [address], 08/29/2017 13:04:03 08/30/19 18 08/29/2017 CMP, serum or plasm a ALT 7 U/L 0-41 normal Not Available [facility] [address] [place] [address], [address], 08/29/2017 13:04:03 08/30/19 18 08/29/2017 CMP, serum or plasm a GFR 78 >= 60 normal Not Available [facility] [address] [place] [address], [address], 08/29/2017 13:04:03 08/30/19 18 08/29/2017 CMP, serum or plasm a GFR non- 67 >= 60 normal NOT E Calcu latio n for GFR is based on the Natio nal Kidne y Found ation CKD-E PI equat ion and allow s for repor ting GFR value s great er than 60 mL/mi n/1.7 3 m2. This calcu latio n has not been valid ated for patie nts less than 18 yrs., pregn ant women and Hispa nics. Chron ic kidne y disea se is defin ed as kidne y damag e or GFR less than 60 mL/mi n/1.7 3 m2 for 3 month s or longe r. . Not Available [facility] [address] [place] [address], [address], 08/29/2017 13:04:03 08/30/19 18 08/29/2017 TSH, serum or plasm a TSH 1.580 uIU/m L 0.290- 5.500 normal Not Available [facility] [address] [place] [address], [address], 08/29/2017 13:09:22 08/30/19 18 08/29/2017 vitam in D, 25-hy droxy , total , serum vitamin D 25-oh, total 45 NG/mL >=30 NG/mL normal Not Available [facility] [address] [place] [address], [address], 08/29/2017 13:39:00 08/30/19 18 08/29/2017 vitam in B12 + folat e, serum or blood folic acid 12.1 NG/mL 4.8-24 .2 normal Not Available [facility] [address] [place] [address], [address], 08/29/2017 13:49:02 08/30/19 18 08/29/2017 vitam in B12 + folat e, serum or blood vitamin B12 1178 pg/mL 232-12 45 normal Not Available [facility] [address] [place] [address], [address], 08/29/2017 13:49:02 08/30/19 18 08/29/2017 XR, locul tika, 2 or more view [address] [address] Pasquale maya Name: HANY maya : 948 Pasquale maya Orderi ng Provid er: ROBLES Gutierrez EXAM DATE: 2017 EXAM: XR LT SHOULD ER COMPLE TE RADIOG RAPHIC VIEWS: 2 COMPAR TRISH: 11/08/19 16 HISTOR Y: Left should er pain. FINDIN GS: The bones of the should er are normal in alignm ent. There is no eviden ce of fractu re. There is mild to modera te degene rative change s at the glenoh umeral joint. There are mild degene rative change s at the acromi oclavi cular joint. The acromi oclavi cular and coraco clavic ular spacin g is normal . The visual ized left ribs and left lung appear s normal . IMPRES WOODY: 1. There are mild to modera te degene rative change s in the left should er. Interp reted By: Shar singleton MD Electr onical ly Signed By: Shar singleton MD on 018 12:56 PM [id number] [facility] [address] [facility], [place], [address], 08/30/2017 13:55:05 Result Notes None recorded. Problems Name Problem SNOMED Code Status Onset Date Resolution Date Notes Provider Name and Address Organization Details Recorded Time Neck pain 49505328 Active 2015 From Automated Load;Prov ider: Radha Weber;Angel tatus: Active Not Available [facility] 6 09:38:03 Hand pain 44238058 Active 2015 From Automated Load;Prov ider: Radha Weber;Angel tatus: Active Not Available [facility] 6 09:38:03 Pain in right hand [id number] 9109 Active 2015 From Automated Load;Prov ider: Radha Weber;Angel tatus: Active Not Available [facility] 6 09:38:14 Pain of joint of wrist 957934049 Active 2015 From Automated Load;Prov ider: Radha Weber;Agnel tatus: Active Not Available [facility] 6 09:38:14 Idiopathi c osteoarth ritis 094049219 Active 2015 From Automated Load;Prov ider: Radha Weber;Angel tatus: Active Not Available [facility] 6 09:38:14 Problem Notes None recorded. Procedures Surgical History Date Name Laterality Status Provider Name and Address Organization Details Recorded Time 9 Injection Joint/Bursa, Major, w/o US completed RADHA WEBER, [employer] [address] [place], [address], [facility] 11/21/2018 14:14:35 8 Injection Joint/Bursa, Major, w/o US completed RADHA WEBER, [employer] [address] [place], [address], [facility] 09/02/2017 13:09:52 Orthopedic Surgery completed Bri Fuentes [facility] 08/29/2017 11:08:25 Other completed Bri Fuentes [facility] 08/29/2017 11:09:12 Imaging Results None recorded. Procedure Notes None recorded. Medical Equipment None Reported. Allergies No known drug allergies Medications Name Sig Start Date Stop Date Status Note LastModified by Organization Details LastModified Time celecoxib 200 mg capsule Take 1 capsule twice a day by oral route. 05/22 completed Not Available Not Available Not Available Flomax 0.4 mg capsule Daily active Frequenc y: daily;Me dication Descript ion: tamsulos in; Dosage:1 ; Route:or al; refills: 0 Not Available Not Available Not Available Ativan 1 mg tablet Two times a day active Frequenc y: bid;Medi cation Descript ion: lorazepa m; Route:or al; refills: 0 Not Available Not Available Not Available meloxicam 15 mg tablet take 1 tablet daily 11/21 completed Not Available Not Available Not Available lisinopri l 20 mg tablet Bedtime active Frequenc y: hs;Medic ation Descript ion: lisinopr il; Dosage:1 ; Route:or al; refills: 0 Not Available Not Available Not Available Prilosec 20 mg capsule,d elayed release Two times a day active Frequenc y: bid;Medi cation Descript ion: omeprazo le; Dosage:1 ; Route:or al; refills: 0 Not Available Not Available Not Available Tylenol Arthritis Pain 650 mg tablet,ex tended release Every eight hours active PA approved 05/24/18- 05/24/19 Not Available Not Available Not Available Plavix 75 mg tablet Daily active Frequenc y: daily;Me dication Descript ion: clopidog rel; Dosage:1 ; Route:or al; refills: 0 Not Available Not Available Not Available tramadol 50 mg tablet Take 1 tablet 3 times a day by oral route. 2018 active Not Available Not Available Not Avai lable Depo-Medr ol 80 mg/mL suspensio n for injection Take 120 mg by injectio n route. 2018 active Not Available Not Available Not Avai lable Nitrostat 0.4 mg sublingua l tablet active Medicati on Descript ion: nitrogly cerin; Route:mahan blingual ; refills: 0 Not Available Not Available Not Available Robaxin 500 mg tablet Three times a day active Frequenc y: tid;Alt Frequenc y: prn;Medi cation Descript ion: methocar bamol; Route:or al; refills: 0 Not Available Not Available Not Available metoprolo l tartrate 50 mg tablet Daily active Frequenc y: daily;Me dication Descript ion: metoprol ol; Dosage:1 ; Route:or al; refills: 0 Not Available Not Available Not Available diclofena c sodium 75 mg tablet,de layed release Two times a day 06/25 completed Duration : 30 days;Raymond quency: bid;Medi cation Descript ion: diclofen ac; Dosage:1 ; Route:or al; refills: 1; Quantity :60 delayed release tablet Not Available Not Available Not Available Aspir-81 mg tablet,de layed release active Medicati on Descript ion: aspirin; Route:or al; refills: 0 Not Available Not Available Not Available [place] 5 mg-325 mg tablet Every eight hours 06/25 completed Frequenc y: q8h;Alt Frequenc y: prn;Medi cation Descript ion: acetamin ophen-hy drocodon e; Dosage:1 ; Route:or al; refills: 0 Not Available Not Available Not Available Lipitor Every night at bedtime active Frequenc y: qhs;Medi cation Descript ion: atorvast atin; Dosage:1 ; Route:or al; refills: 0 Not Available Not Available Not Available Vitamin D3 Twice weekly active Frequenc y: 2x/ week;Med ication Descript ion: cholecal ciferol; Dosage:1 ; Route:or al; refills: 0 Not Available Not Available Not Available Centrum Silver 0.4 mg-300 mcg-250 mcg tablet active Duration : 10 days;Med ication Descript ion: multivit orozco with minerals ; Route:or al; refills: 0 Not Available Not Available Not Available Vitals Date Recorded Body height Heart rate Body mass index (BMI) Body weight Systolic blood pressure Diastolic blood pressure Provider Name and Address Organization Details Last Updated DateTime 9 177.8 cm 71 /min 21.7 kg/m2 66829.5 5 g 115 mm[Hg] 66 mm[Hg] RADHA WEBER, [employer] [address] [place], [address] [place] [address] 9 16:01:37 Date Recorded Body height Body mass index (BMI) Body weight Heart rate Systolic blood pressure Diastolic blood pressure Provider Name and Address Organization Details Last Updated DateTime 8 177.8 cm 19.4 kg/m2 60970.9 7 g 59 /min 103 mm[Hg] 54 mm[Hg] Bri Fuentes [facility] 8 11:10:18 Date Recorded Body height Body mass index (BMI) Body weight Respiratory rate Heart rate Systolic blood pressure Diastolic blood pressure Provider Name and Address Organization Details Last Updated DateTime 9 177.8 cm 20.8 kg/m2 33821.8 9 g 18 /min 87 /min 119 mm[Hg] 63 mm[Hg] Clarence Levine [facility] 9 13:57:36 Date Recorded Body height Body mass index (BMI) Body weight Heart rate Systolic blood pressure Diastolic blood pressure Provider Name and Address Organization Details Last Updated DateTime 8 177.8 cm 20.7 kg/m2 86622.3 g 69 /min 120 mm[Hg] 76 mm[Hg] Bri Fuentes [facility] 8 15:55:40 Date Recorded Body height Body mass index (BMI) Body weight Respiratory rate Heart rate Systolic blood pressure Diastolic blood pressure Provider Name and Address Organization Details Last Updated DateTime 8 177.8 cm 20.8 kg/m2 76364.8 9 g 18 /min 69 /min 108 mm[Hg] 63 mm[Hg] Nia Hobbs [facility] 8 16:20:59 Social History Question Answer Notes LastModified by Organizat ion Details LastModified Time Tobacco Smoking Status Never Smoker Esperanza Hernandezmami zimmer [facility] 06/25/2016 16:20:26 How Much Tobacco Do You Chew? None Information not available 11/21/2018 What Was The Date Of Your Most Recent Tobacco Screening? 11/21/2018 Information not available 06/23/2019 How Much Tobacco Do You Smoke? No Information not available 11/21/2018 Has Tobacco Cessation Counseling Been Provided? No Information not available 11/21/2018 How Many Years Have You Smoked Tobacco? 0 Information not available 11/21/2018 Sex: Unknown Functional Status Question Answer Note LastModified by Organization D etails LastModified Time What is your level of alcohol consumption? None [email or web address] Information not available 08/29/2017 Mental Status None recorded. Family History Relationship Description Onset Age of this Age Resolved Age Notes LastModified by Organization Details LastModified Time Father No current problems or disability [email or web address] Not available 06/25 16:19:20 Mother No current problems or disability [email or web address] Not available 06/25 16:19:20 Medical History Condition Response Diabetes N Bleeding Disorder N Arthritis Y Emphysema N Heart Disease Y Acid Reflux (GERD) Y Rheumatoid Arthritis N Hypertension Y COPD N Asthma N Past Encounters Encounter ID Performer Location Encounter Start Date Encounter Closed Date Diagnosis/Indication Diagnosis SNOMED-CT Code Diagnosis ICD10 Code Diagnosis Note [id number] RADHA WEBER APRN RHEUMATOL [address] [place] [address] 06/25/2016 15:30:34 06/25/2016 16:56:33 Idiopathic osteoarthritis [id number] M19.91 chronic and recurring with pain in the cervical spine, left shoulder and bilateral wrist and hand painsimpro gary with the use of meloxicam at first, but not working well at this time; has also been taking arthritis strength tylenol; tried diclofenac in the pastwill initiate celebrex bid and have him f/u in 3 months or sooner prnwill provide with joint injections prnlabs are good; no further needed Pain of deep int of wrist [id number] M25.531 M25.532 Neck pain 76359145 M54.2 Hand pain 80243320 M79.6 41 M79.531 [id number] MIGUEL STONE APRN RHEUMATOL [address] [address] 04/16/2017 15:35:49 05/07/2017 09:16:59 Osteoarthritis 575526030 M19.90 OA-diffuse but mostly symptomati c in shoulders. No synovitis or effusions. Unable to take celebrex due to expense.Me loxicam is working, at max dose.For now will keep him on meloxicam 15 mg daily.Will obtain Creatinine and BUN today.Rech agnes 3 months, sooner if needed. Long-term drug therapy [id number] Z79.408 [id number] RADHA WEBER APRN [facility]ATOL [place] [address] [place] [address] 08/29/2017 10:17:22 08/29/2017 12:00:34 Fatigue 11609747 R53.83 worsening Muscle weakness 91603012 M62.81 Vitamin D deficiency 347 73388 E55.9 Muscle pain 23809869 M79 .1 Iron defic iency anemia 66681948 D50.9 Serum gudelia min B12 below reference range 923033190 R79.89 Idiopathic osteoarthritis 134649576 M19.91 chronic and recurring with pain in the cervical spine, left shoulder and bilateral wrist and hand painsimpro gary with the use of meloxicam at first, but not working well at this time; has also been taking arthritis strength tylenol; tried diclofenac in the pastwill initiate celebrex bid and have him f/u in 3 months or sooner prnwill provide with joint injections prnlabs are good; no further needed Shoulder joint pain 2679 82189 M25.591 [id number] RADHA WEBER APRN [address] [address] 11/27/2017 15:23:11 11/27/2017 16:46:42 Idiopathic osteoarthritis 449226780 M19.91 chronic and recurring with pain in the cervical spine, left shoulder and bilateral wrist and hand painsimpro gary with the use of meloxicamw ill continue with meloxicam and tramadolwi ll provide with joint injections prnlabs are good; no further needed Shoulder joint pain 2679 04172 M25.519 chronic and recurring with increased joint pain and stiffness without improvemen t with the low dose mobic starting on tramadol for improved outcome with oa no injections needed today [id number] RADHA WEBER APRN RHEUMATOL [address] [address] 02/24/2018 15:32:53 02/24/2018 16:53:03 Idiopathic osteoarthritis 511782866 M19.91 chronic and recurring with pain in the cervical spine, left shoulder and bilateral wrist and hand painsimpro gary with the use of meloxicamw ill continue with meloxicam and tramadolwi ll provide with joint injections prn; none neededlabs are good; no further needed Shoulder joint pain 2679 22617 M25.519 chronic and recurring with increased joint pain and stiffness without improvemen t with the low dose mobic starting on tramadol for improved outcome with oa no injections needed today [id number] RADHA WEBER APRN RHEUMATOL [address] [address] 05/22/2018 15:24:17 05/28/2018 10:31:17 Idiopathic osteoarthritis 603610455 M19.91 chronic and recurring with pain in the cervical spine, left shoulder and bilateral wrist and hand painsimpro gary with the use of meloxicamw ill continue with meloxicam and tramadolwi ll provide with joint injections prn; none neededlabs are good; no further needed Shoulder joint pain 2679 89058 M25.519 chronic and recurring with increased joint pain and stiffness without improvemen t with the low dose mobic starting on tramadol for improved outcome with oa casie inject bilateral injections today Neck pain 90593056 M54.2 with pain radiating into the bilateral shoulders requests an injection today pain muscle pain, weakness and symptoms suggesting tendinosis from pulling and lifting on his who has a back injury and disability with rods, plates and screws in her spine this helped significan tly after the last injection will provide with 120 mg IM injection today [id number] RADHA WEBER APRN [address]OL [address] [place] [address] 11/21/2018 13:31:21 11/21/2018 14:38:33 Idiopathic osteoarthritis 903760781 M19.91 chronic and recurring with pain in the cervical spine, left shoulder and bilateral wrist and hand painsimpro gary with the use of meloxicamw ill continue tramadol prnwill provide with joint injections prn; none neededlabs are good; no further needed Health Concerns Section Related Observation LastModified by Organization Detai ls LastModified Time None Recorded Concern Status LastModified by Organization Details LastModified Time None Recorded Advance Directives Directive None Recorded Payers Insurance Date Sequence Insurance Name Policy Number Policy Camara Covered Member ID Camara Member ID Guarantor Name 09/16/2017 2 [employer] (MEDICARE SUPPLEMENT) Hany Hendrix 03/30/2020 1 MEDICARE[place]IC[place] Hany Hendrix [id number] Hany Hendrix 11/24/2018 2 [employer] (MEDICARE SUPPLEMENT) Hany Hendrix [id number] Hany Hendrix Notes Date Note Type Note Provider Name and Address Organization Details Recorded Time 08/29/2017 text/html f/u on oa; has been retired now; worsening left shoulder and neck pains; he has increased muscle pain and tenderness; he currently denies cp, soa, rash or fever; all others negative RADHA WEBER APRN [address] [place], [address], [facility] 09/02/2017 13:11:07 11/27/2017 text/html f/u on oa; has been retired now; worsening left shoulder and neck pains; he has increased muscle pain and tenderness; he currently denies bowel or bladder changes, cp, soa, rash or fever; all others negative RADHA WEBER APRN [address] [place], [address], [facility] 12/02/2017 00:20:06 02/24/2018 text/html f/u on oa; has been retired now; worsening left shoulder and neck pains; seeing gi; he has increased muscle pain and tenderness, weakness, worsening; he currently denies bowel or bladder changes, cp, soa, rash or fever; all others negative RADHA WEBER APRN [address] [place], [address], [facility] 02/24/2018 16:43:25 05/22/2018 text/html f/u on oa; has been retired now; worsening left and right shoulder affecting and worsening the neck pains; seeing gi and will have egd tomorrow with Dr. Patel; he has a prostate infection; he is having some sick still at his stomach; he has increased muscle pain and tenderness, weakness, worsening; he currently denies bowel or bladder changes, cp, soa, rash or fever; all others negative RADHA WEBER APRN [address] [place], [address], [facility] 05/22/2018 16:17:20 11/21/2018 text/html f/u on oa; has been retired now; worsening left and right shoulder affecting and worsening the neck pains; seeing gi and had a stomach ulcer forming, so he is off his meloxicam; he has increased muscle pain and tenderness, weakness, worsening; he currently denies bowel or bladder changes, cp, soa, rash or fever; all others negative RADHA WEBER APRN [address] [place], [address], [facility] 11/21/2018 14:16:01
[2024-10-15 11:00] VITALS: BP 113/65; PULSE 61; O2SAT 95
--- NOTE | 2024-10-15 11:09 | HMH.EDGENADL ---
Discharge Plan Disposition Patient Disposition: Home, Self-Care Prescriptions Prescriptions: No Action omeprazole 20 mg capsule,delayed release(DR/EC) 20 mg PO BID metoprolol succinate 50 mg tablet extended release 24 hr 50 mg PO DAILY aspirin [Aspir-81] 81 mg tablet,delayed release (DR/EC) 81 mg PO DAILY tamsulosin [Flomax] 0.4 mg capsule 0.8 mg PO DAILY Qty: 180 0RF Rx Instructions: Take 2 capsuls 1/2 hour after evening meal daily, Dispense 180 with 2 refills gabapentin 100 mg capsule 100 mg PO TID misoprostol 200 mcg tablet 200 mcg PO DAILY diclofenac sodium 1 % gel 4 g TOPICAL QID PRN (Reason: Pain) 90 Days Qty: 100 2RF Rx Instructions: apply to single knee, ankle, foot; for foot includes sole/toes/top of foot meloxicam 15 mg tablet 15 mg PO DIRECTED finasteride 5 mg tablet 5 mg PO DAILY Qty: 90 0RF lorazepam 1 MG tablet 1 mg PO BID Referrals Follow up/Referrals: Reyes Schroeder MD [Primary Care Provider, Internal Medicine] - See instructions Aniceto New DO [Staff Physician, Orthopedics] - See instructions Referral Note: right base of 5th fracture Activity Restrictions/Add. Instructions Additional Instructions/Restrictions: Follow-up with Dr. New regarding this visit to the emergency department. Wear your boot at all times while walking or bearing weight. Call your family doctor to establish care for this visit to the emergency department and schedule follow-up within 48 hours to ensure improvement. If you have any worsening of your condition or any other concerning signs or symptoms, return to the emergency department or your primary care doctor for further evaluation. Clinical Impressions Clinical Impression: Fracture of right foot Print Language Print Language: Estonian Discharge ED Provider: Regis Balbuena General Adult [facility] General Chief complaint: Extremity Injury, Lower Stated complaint: AO-10/13/24 1000- fall- Pain in R foot Time Seen by Provider: 10/15/24 10:04 Mode of Arrival: Family Vehicle Source of Information: Patient and Medical Record Description of Symptoms (Recalled from ER Triage Doc. by RN): Pt presents to ER with concerns of pain to R foot/ankle after a fall on 10/13/24. States he was getting out of a recliner in the Pain Management clinic on (10/13) and his legs were asleep like and I just fell over on my right side . He did not seek treatment but was offered it at this time of injury. There is bruising & swelling from his 3rd, 4th, and 5th toes along anterior/lateral R foot to R lateral ankle. States his pain in ontop of the arch and on the sole of his foot. He took tylenol @ 7am today. He can move his toes and pedal pulse strong. However, he does report that his foot and toes feel vinnie numb . History of Present Illness HPI narrative: Please note that above description of symptoms, in this electronic medical record under categorization of recalled from ER triage doctor by RN are reflective of an initial nursing assessment, however, is not reflective of my full history and physical exam that was personally taken and clarified. Consequentially, this preceding description of symptoms, which may include the patient's categorized chief complaint in the EMR, do not reflect my personal clinical impression, and the ultimate description of history of present illness and patient stated complaints should be deferred to this section of the note. Unless stated otherwise or congruent with this section of the note, additional signs, symptoms, or incongruence should be interpreted as inaccurate with my clinical impression. Related Data Home Medications ?Medication ?Instructions ?Recorded ?Confirmed aspirin 81 mg tablet,delayed 81 mg PO DAILY prevent heart 06/11/17 10/15/24 release (Aspir-) metoprolol succinate 50 mg 50 mg PO DAILY bp 06/11/17 10/15/24 tablet,extended release 24 hr omeprazole 20 mg capsule,delayed 20 mg PO BID stomach 06/11/17 10/15/24 release lorazepam 1 mg tablet 1 mg PO BID ANXIETY 12/31/18 10/15/24 gabapentin 100 mg capsule 100 mg PO TID Pain 02/09/20 10/15/24 misoprostol 200 mcg tablet 200 mcg PO DAILY GERD 02/09/20 10/15/24 meloxicam 15 mg tablet 15 mg PO DIRECTED Pain 05/13/23 10/15/24 Previous Rx's ?Medication ?Instructions ?Recorded diclofenac sodium 1 % topical gel 4 g topical QID PRN Pain 3 months 02/09/20 #100 grams finasteride 5 mg tablet 5 mg PO DAILY urinary retention 05/13/23 #90 tabs tamsulosin 0.4 mg capsule (Flomax) 0.8 mg (2 x 0.4 mg) PO DAILY 06/03/23 prostate #180 caps Allergies Allergy/AdvReac Type Severity Reaction Status Date / Time No Known Allergies Allergy Verified 10/15/24 10:46 [facility] Disclaimer: The information contained in this section may have been updated after the patient was seen, as this information can be updated by other users. Medical History Abnormal echocardiogram CAD (coronary artery disease) Murmur, heart Numbness Other forms of angina pectoris Sinus bradycardia SOB (shortness of breath) Family History Other Unknown family medical history Social History Smoking Status: Never smoker second hand exposure: No alcohol intake: never substance use type: denies use current occupational status: other Travel in the last 8 weeks?: None household members: spouse housing: house current occupation: the [employer] current occupational exposures/hazards: No caffeine: Yes Have you lived/traveled outside [place] in past 30 days?: No Contact w/someone who lives/traveled outside US past 30 days?: No Exposure to someone with infectious disease in past 14 days?: No Do you have a fever (greater than 100.4 F or 38 C)?: No Have you tested positive for COVID-19?: No Exposed to someone with COVID-19 in past 14 days?: No Do you have a sore throat?: No Do you have a cough?: No Do you have any weakness?: No Do you have any diarrhea?: No Are you experiencing any unusual bleeding?: No Do you have any muscle aches/pain?: Yes Do you have any abdominal pain?: No Are you experiencing loss of taste or smell?: No Other Medical History Have you received the Flu Vaccine for this season: No Have you received the Pneumonia Vaccine: No ROS Obtained: Yes All systems reviewed & no additional complaints except as documented Physical Exam General General appearance: alert Head Head exam: atraumatic and normocephalic Eye Eye exam: Present normal appearance, PERRL and EOMI Neck Neck exam: Present normal inspection, full ROM and trachea midline Respiratory Respiratory exam: Absent respiratory distress, wheezes, stridor, accessory muscle use or prolonged expiratory phase Cardiovascular Cardiovascular exam: Present other (Pulses equal symmetric in upper and lower extremities) Abdominal Exam Abdominal exam: Present soft; Absent distention, tenderness or pulsatile mass Extremities Exam Extremities exam: Present edema (With associated bruising, tenderness about the right ankle and foot. Primarily tender on inferior aspect of lateral malleolus, base of fifth metatarsal, dorsal aspect of proximal metatarsals 2 and 3 and arch.) Neurological Exam Neurological exam: Present alert, oriented X3 and CN II-XII intact; Absent motor sensory deficit Skin Skin exam: Present warm and dry; Absent diaphoresis or erythema Medical Decision Making Medical Records Medical records reviewed: Yes I reviewed the patient's medical records. Screening: Per USPSTF and CDC recommendations, given the prevalence of disease in our region, it is our hospital?s policy to screen for HIV and viral Hepatitis for all patients aged 18 and over and those with ongoing risk factors. Jeff Inquiry Pt receiving controlled substance: No Jeff was queried for this patient: No Vital Signs: 10/15/24 10:00 10/15/24 10:30 10/15/24 11:00 Temperature 97.7 F Temperature Source Oral Pulse Rate 69 61 Pulse Rate [Right] 62 Respiratory Rate 18 Blood Pressure 111/67 113/65 Blood Pressure [Left Arm] 136/72 Blood Pressure Mean [Left Arm] 93 Blood Pressure Source [Left Arm] Automatic Cuff 02 Sat by Pulse Oximetry 96 94 L 95 Oxygen Delivery Method Room Air Orders (Tests/Meds): ED MEDICATIONS Discontinued Medications Generic Name Dose Route Start Last Admin Trade Name Freq PRN Reason Stop Dose Admin Ibuprofen 600 mg 10/15/24 10:25 10/15/24 10:31 Ibuprofen 600 Mg Tablet PO 10/15/24 10:26 600 mg ONCE ONE Administration ORDERS Category Date Time Status XR ankle RT min 3V Stat Exams 10/15/24 10:12 Taken XR foot RT min 3V Stat Exams 10/15/24 10:11 Taken Medical Decision Narrative: 74-year-old male presenting with right lower extremity injury. He was at clinic a couple days prior to this when he fell and twisted his right lower extremity. Having pain in his right foot and ankle. Able to bear weight, but with significant pain. Came in for further evaluation given pain, swelling, bruising. History obtained with patient. On arrival, very clinically well. Right lower extremity mild edema at the ankle and beyond with associated bruising, tenderness about the right ankle and foot. Primarily tender on inferior aspect of lateral malleolus, base of fifth metatarsal, dorsal aspect of proximal metatarsals 2 and 3 and arch. Neurologically intact, range of motion intact. Differential includes sprain, strain, fracture, dislocation, among others. Patient given 600 mg ibuprofen. X-rays were obtained. On independent interpretation, he has fracture of the base of his fifth metatarsal. Patient was placed in a boot. Patient requires orthopedic bracing due to weakness or deformity requiring stabilization. The use of this brace will benefit the patient's functionality and prevent further injury. Outpatient follow-up with orthopedics was recommended. Information provided. Because patient at baseline without signs or symptoms of clinical decompensation, deemed appropriate for discharge. Results were relayed to patient who voiced understanding and were agreeable to outpatient management and follow up. I discussed my clinical impression with patient and answered all questions. At this time, the evidence for any other entities in the differential is insufficient to warrant any further testing or ED observation. This was explained as well. Advisory was given that persistent or worsening symptoms require further evaluation. I confirmed the understanding of this discussion. Sorting And Folding Supervisor disclaimer Much of this encounter note is an electronic customs collector spoken language to printed text. Electronic customs collector of the spoken language may permit errors. Although I have reviewed the note, some errors may still exist. Critical Care Critical Care Time Critical Care Time: No
[2024-10-15 12:04] VITALS: BP 110/67; PULSE 54; RESP 18; TEMP 36.9; O2SAT 97
== END 2024-10-15 12:04 | disposition home or self-care (01) ==
PROVIDERS: Emergency Provider Emergency Medicine; PCP Internal Medicine Adolescent Medicine
DX: S92.351A Displaced fracture of fifth metatarsal bone, right foot, initial encounter for closed fracture (principal); X58.XXXA Exposure to other specified factors, initial encounter
CPT/HCPCS: 73610; 73630; 99283

== ENCOUNTER 2024-11-23 13:16 | Outpatient (CLI) | payer MEDICARE, SELFPAY ==
--- OUTSIDE RECORDS SUMMARY | 2024-11-23 13:19 | XMS_ITS | Clinical Summary ---
Author Organization [facility] Address [address] [place] [address] Phone Care Team Providers Care Distribution Center Manager Name Role Phone Campbell Aquino MD [ ] Conditions or Problems Problem Name Problem Code Onset Date Status Entry Date Provider Comment Standard Description Annotate Fever of unknown origin 9001838 (SNOMED CT) 08/21 Inactive 08/21 Felicita W Pyrexia of unknown origin Postop hematoma of a circulatory system structure following a cardiac catheterizat ion 745241749 (SNOMED CT) 08/21 Active 08/24 Felicita W Postoperative hemorrhage Pyelonephrit is, acute 05682082 (SNOMED CT) 08/22 Active 08/22 Campbell Aquino MD Acute pyelonephritis CAD (coronary artery disease) 54879095 (SNOMED CT) 08/21 Active 08/21 Campbell Aquino MD Coronary arteriosclerosi s Acute STEMI involving left anterior descending coronary artery 31877753400 9103 (SNOMED CT) 08/21 Resolved 08/21 Campbell Aquino MD Acute ST segment elevation myocardial infarction involving left anterior descending coronary artery Cardiac device/impla nt/graft, infection/in flammatory reaction, initial encounter T82.7xxA (ICD-10-CM) 08/21 Resolved 08/21 Campbell Aquino MD Infection and inflammatory reaction due to other cardiac and vascular devices, implants and grafts, initial encounter Fever of unknown origin 5258393 (SNOMED CT) 08/21 Removed 08/21 Campbell Aquino MD Pyrexia of unknown origin Presence of cardiac stent 568828969 (SNOMED CT) 08/21 Active 08/21 Merced Parker History of placement of stent for coronary artery disease Cardiac device/impla nt/graft, infection/in flammatory reaction, initial encounter T82.7xxA (ICD-10-CM) 08/21 Removed 08/21 Merced Parker Infection and inflammatory reaction due to other cardiac and vascular devices, implants and grafts, initial encounter Acute STEMI involving left anterior descending coronary artery 16530014655 9103 (SNOMED CT) 08/21 Removed 08/[address] segment elevation myocardial infarction involving left anterior descending coronary artery Benign Essential Hypertension 87065887 (SNOMED CT) 08/21 Active 08/21 Merced Parker Benign hypertension Medications Medication Instructions Start Date Stop Date Generic Name NDC Provider CUBICIN 500 MG INTRAVENOUS SOLUTION RECONSTITUTED 500mg IV Q24hrs/ INPAT DAPTOMYCIN 38372561126 Traci Pacheco RN CEFTRIAXONE SODIUM 2 GM SOLR 2 grams IV Q24hrs/ INPAT CEFTRIAXONE SODIUM 17591554597 Traci Pacheco RN CIPRO 500 MG TABS 1 by mouth twice a day CIPROFLOXACIN HCL 67139991843 Campbell Aquino MD CUBICIN 500 MG INTRAVENOUS SOLUTION RECONSTITUTED 500mg IV Q24hrs/ INPAT DAPTOMYCIN 40447753438 Evelia Stacy RN CEFTRIAXONE SODIUM 2 GM SOLR 2 grams IV Q24hrs/ INPAT CEFTRIAXONE SODIUM 68343795673 Evelia Stacy RN CEFTRIAXONE SODIUM 2 GM SOLR 2 grams IV today CEFTRIAXONE SODIUM 53648007713 Campbell Aquino MD CUBICIN 500 MG INTRAVENOUS SOLUTION RECONSTITUTED 500mg IV today DAPTOMYCIN 10121053760 Campbell Aquino MD ERGOCALCIFEROL 1.25 MG (89123 UT) CAPS take 1 capsule twice weekly ERGOCALCIFEROL 26584059443 Jarred Esquivel VITAMIN B-12 ER 1000 MCG CR-TABS take 1 tablet daily CYANOCOBALAMIN 08974354120 Jarred Esquivel OMEPRAZOLE 20 MG TBEC take 1 tablet b.i.d. OMEPRAZOLE 16905635283 Jarred Esquivel METOPROLOL SUCCINATE ER 50 MG GF68C-HOV take 1 tablet daily METOPROLOL SUCCINATE 88033810094 Jarred Esquivel METHOCARBAMOL 500 MG TABS take 1-2 tablets t.i.d. as needed METHOCARBAMOL 27569356274 Jarred Esquivel MELOXICAM 15 MG TABS take 1 tablet daily MELOXICAM 78210013138 Jarred Esquivel LORAZEPAM 1 MG TABS take 1 tablet b.i.d. LORAZEPAM 06564286827 Jarred Esquivel LISINOPRIL 5 MG TABS take 1 tablet at bedtime LISINOPRIL 80803392205 Jarred Esquivel HYDROCODONE-ACETA MINOPHEN 5-325 MG TABS take 1 tablet t.i.d. HYDROCODONE-ACET AMINOPHEN 04598656387 Jarred Esquivel FLOMAX 0.4 MG ORAL CAPSULE take 1 capsule at bedtime TAMSULOSIN HCL 12748265555 Jarred Esquivel MULTIVITAMINS ORAL CAPSULE take 1 capsule daily MULTIPLE VITAMIN 38525208743 Jarred Esquivel ASPIRIN 81 81 MG TBEC take 1 tablet daily ASPIRIN 87206614647 Jarred Esquivel Medications Administered No information available. 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
--- NOTE | 2024-11-23 13:20 | XR_ITS ---
FINAL REPORT CLINICAL HISTORY: right ankle fx FINDINGS: RIGHT ANKLE 3 views of the right ankle were obtained. Bones are osteopenic. There is no acute fracture or dislocation. The mortise is intact. Visualized joint spaces are normally aligned. Soft tissues are unremarkable. IMPRESSION: No acute bony abnormality. Reviewed, Interpreted and Dictated by Israel Thomas MD Transcribed by Alma Rosa Saini Authenticated and [facility]
--- NOTE | 2024-11-23 13:20 | XR_ITS ---
FINAL REPORT CLINICAL HISTORY: right foot fx COMPARISON: 10/15/2024 FINDINGS: RIGHT FOOT 3 views of the right foot were obtained. There is a transverse fracture of the base of the fifth metatarsal with mild displacement, stable from prior exam. Bones are osteopenic. Joints are intact. Soft tissues are unremarkable. IMPRESSION: Stable appearing fifth metatarsal fracture without evidence of bony union. Reviewed, Interpreted and Dictated by Israel Thomas MD Transcribed by Alma Rosa Saini Authenticated and [facility]
--- OUTSIDE RECORDS SUMMARY | 2024-11-23 13:20 | XMS_ITS | Data Portability ---
Author Organization ANTONIO JULIEN Barron [place] [facility] Address [address] [facility] [address] [address] [place] [address] Assessment No assessment recorded. Plan of Treatment Reminders Order Date Submit Date Provider Last Modified By Organization Details Last Modified Time Details Appointments None recorded. Lab TSH, serum or plasma 2017 018 [facility], [address] [place] [address], [id number], 8 13:09:22 CBC w/ auto diff 2017 018 [facility], [address] [place] [address], [address], 8 12:42:03 CMP, serum or plasma 2017 018 [facility], [address] [place] [address], [address], 8 13:04:03 magnesium, QN, serum or plasma 2017 018 [facility], [address] [place] [address], [address], 8 13:03:59 vitamin D, 25-hydroxy , total, serum 2017 018 [facility], [address] [place] [address], [address], 8 13:39:00 CK (creatine kinase), total, serum 2017 018 [facility], [address] [place] [address], [address], 8 13:04:02 vitamin B12 + folate, serum or blood 2017 018 [facility], [address] [place] [address], [address], 8 13:39:23 iron + total iron-isha ng capacity (TIBC), serum 2017 018 [facility], [address] [place] [address], [id number], 8 13:04:01 Referral None recorded. Procedures None recorded. Surgeries None recorded. Imaging XR, shoulder, 2 or more view 2017 018 [facility], [address] [place] [address], [address], 8 13:01:23 Medication Orders tramadol 50 mg tablet 2018 019 [facility][id number], [address], [id number], 9 14:15:36 meloxicam 15 mg tablet 2018 019 [facility], [address] [facility], [place], [address], 9 13:59:33 Depo-Medro l 80 mg/mL suspension for injection 2018 019 [email or web address] Not available 9 16:55:37 tramadol 50 mg tablet 2018 019 [facility] #[id number], [address], [id number], 9 16:04:16 celecoxib 200 mg capsule 2017 018 [facility] #[id number], [address] [facility] [address], ANTONIO Cespedes, [id number], 9 16:02:59 tramadol 50 mg tablet 2017 018 [facility] #[id number], [address] [facility] [address], [place], [id number], 8 16:33:57 meloxicam 15 mg tablet 2017 018 [facility] #35875, [address] [facility] [address], [place], [id number], 9 13:59:33 tramadol 50 mg tablet 2017 018 [facility] #[id number], [address] [facility] [address], [place], [id number], 8 16:35:05 meloxicam 15 mg tablet 2017 018 [facility] #[id number], [address] [facility] [address], [place], [id number], 9 13:59:33 Patient TargetsNo targets recorded. Patient Instructions Encounter Date Encounter Id Patient Instructions Last Modified By Organization Details Last Modified Time 08/29/2017 [id number] osteoarthritis: care instructions smoberly Not available 08/29/2017 11:20:06 iron deficiency anemia: care instructions smoberly Not available 08/29/2017 11:19:42 11/27/2017 [id number] osteoarthritis: care instructions smoberly Not available 11/27/2017 16:35:00 02/24/2018 [id number] osteoarthritis: care instructions smoberly Not available 02/24/2018 16:33:52 05/22/2018 [id number] neck pain: care instructions smoberly Not available 05/22/2018 16:16:17 11/21/2018 [id number] osteoarthritis: care instructions smoberly Not available 11/21/2018 14:15:34 Reason for Referral None Reported. Results Created Date Observation Date Name Description Value Unit Range Abnormal Flag Note LastModifiedBy Organization Detail LastModifiedTime 08/30/19 18 08/29/2017 CBC w/ auto diff white blood cells 8.6 K/uL 3.8-10 .8 normal Not Available [facility] [address] [place] [address], [id number], 08/29/2017 12:42:03 08/30/19 18 08/29/2017 CBC w/ auto diff red blood cells 4.55 M/uL 4.20-5 .80 normal Not Available [facility] [address] [place] [address], [address], 08/29/2017 12:42:03 08/30/19 18 08/29/2017 CBC w/ auto diff hemoglobin 13.9 g/dL 14.0-1 8.0 low Not Available [facility] [address] [place] [address], [address], 08/29/2017 12:42:03 08/30/19 18 08/29/2017 CBC w/ auto diff hematocrit 39.8 % 40.0-5 2.0 low Not Available [facility] [address] [place] [address], [address], 08/29/2017 12:42:03 08/30/19 18 08/29/2017 CBC w/ auto diff MCV 88 fL 80-100 normal Not Available [facility] [address] [place] [address], [address], 08/29/2017 12:42:03 08/30/19 18 08/29/2017 CBC w/ auto diff MCH 31 pg 26-35 normal Not Available [facility] [address] [place] [address], [address], 08/29/2017 12:42:03 08/30/19 18 08/29/2017 CBC w/ auto diff MCHC 35 g/dL 32-36 normal Not Available [facility] [address] [place] [address], [address], 08/29/2017 12:42:03 08/30/19 18 08/29/2017 CBC w/ auto diff RDW 13.0 % 11.0-1 5.0 normal Not Available [facility] [address] [place] [address], [address], 08/29/2017 12:42:03 08/30/19 18 08/29/2017 CBC w/ auto diff MPV 8.7 fL 6.2-10 .5 normal Not Available [facility] [address] [place] [address], [address], 08/29/2017 12:42:03 08/30/19 18 08/29/2017 CBC w/ auto diff platelet count 320 K/uL 130-40 0 normal Not Available [facility] [address] [place] [address], [address], 08/29/2017 12:42:03 08/30/19 18 08/29/2017 CBC w/ auto diff neutrophil,a bsolute 5.6 K/uL 1.6-8. 4 normal Not Available [facility] [address] [place] [address], [address], 08/29/2017 12:42:03 08/30/19 18 08/29/2017 CBC w/ auto diff lymphocyte,a bsolute 2.1 K/uL 0.4-5. 1 normal Not Available [facility] [address] [place] [address], [address], 08/29/2017 12:42:03 08/30/19 18 08/29/2017 CBC w/ auto diff monocyte,abs olute 0.6 K/uL 0.0-1. 2 normal Not Available [facility] [address] [place] [address], [address], 08/29/2017 12:42:03 08/30/19 18 08/29/2017 CBC w/ auto diff eosinophil,a bsolute 0.2 K/uL 0.0-0. 8 normal Not Available [facility] [address] [place] [address], [address], 08/29/2017 12:42:03 08/30/19 18 08/29/2017 CBC w/ auto diff basophil,abs olute 0.1 K/uL 0.0-0. 3 normal Not Available [facility] [address] [place] [address], [address], 08/29/2017 12:42:03 08/30/19 18 08/29/2017 CBC w/ auto diff % neutrophils 65.5 % 42.0-7 8.0 normal Not Available [facility] [address] [place] [address], [address], 08/29/2017 12:42:03 08/30/19 18 08/29/2017 CBC w/ auto diff % lymphocytes 24.4 % 11.0-4 7.0 normal Not Available [facility] [address] [place] [address], [address], 08/29/2017 12:42:03 08/30/19 18 08/29/2017 CBC w/ auto diff % monocytes 7.4 % 0.0-11 .0 normal Not Available [facility] [address] [place] [address], [address], 08/29/2017 12:42:03 08/30/19 18 08/29/2017 CBC w/ auto diff % eosinophils 2.1 % 0.0-7. 0 normal Not Available [facility] [address] [place] [address], [address], 08/29/2017 12:42:03 08/30/19 18 08/29/2017 CBC w/ auto diff % basophils 0.6 % 0.0-3. 0 normal Not Available [facility] [address] [place] [address], [address], 08/29/2017 12:42:03 08/30/19 18 08/29/2017 CBC w/ auto diff nucleated red cells 0.1 % 0.0-0. 9 normal Not Available [facility] [address] [place] [address], [address], 08/29/2017 12:42:03 08/30/19 18 08/29/2017 CBC w/ auto diff nucleated RBCs, absolute 0.01 K/uL not estab. normal Not Available [facility] [address] [place] [address], [address], 08/29/2017 12:42:03 08/30/19 18 08/29/2017 magne sium, QN, serum or plasm a magnesium 2.16 mg/dL 1.60-2 .60 normal Not Available [facility] [address] [place] [address], [address], 08/29/2017 13:03:59 08/30/19 18 08/29/2017 iron + total iron- isha ng capac ity (TIBC ), serum iron 134 ug/dL 59-158 normal Not Available [facility] [address] [place] [address], [address], 08/29/2017 13:04:01 08/30/19 18 08/29/2017 iron + total iron- isha ng capac ity (TIBC ), serum total iron binding cap. 215 ug/dL _(margarita c) 250-45 0 low Not Available [facility] [address] [place] [address], [address], 08/29/2017 13:04:01 08/30/19 18 08/29/2017 iron + total iron- isha ng capac ity (TIBC ), serum unsat.iron binding cap. 81 ug/dL 112-34 7 low Not Available [facility] [address] [place] [address], [address], 08/29/2017 13:04:01 08/30/19 18 08/29/2017 iron + total iron- isha ng capac ity (TIBC ), serum % saturation 62 %_(ca lc) 20-50 high Not Available [facility] [address] [place] [address], [address], 08/29/2017 13:04:01 08/30/19 18 08/29/2017 CK (crea carlitos kinas e), total , serum creatine kinase 49 U/L 0-189 normal Not Available [facility] [address] [place] [address], [address], 08/29/2017 13:04:02 08/30/19 18 08/29/2017 CMP, serum or plasm a glucose 96 mg/dL 74-100 normal Not Available [facility] [address] [place] [address], [address], 08/29/2017 13:04:03 08/30/19 18 08/29/2017 CMP, serum or plasm a blood urea nitrogen 20 mg/dL 6-20 normal Not Available [facility] [address] [place] [address], [address], 08/29/2017 13:04:03 08/30/19 18 08/29/2017 CMP, serum or plasm a creatinine 1.11 mg/dL 0.70-1 .25 normal Not Available [facility] [address] [place] [address], [address], 08/29/2017 13:04:03 08/30/19 18 08/29/2017 CMP, serum or plasm a BUN/creatini ne ratio 18 (calc ) 10-20 normal Not Available [facility] [address] [place] [address], [address], 08/29/2017 13:04:03 08/30/19 18 08/29/2017 CMP, serum or plasm a sodium 140 mmol/ L 136-14 5 normal Not Available [facility] [address] [place] [address], [address], 08/29/2017 13:04:03 08/30/19 18 08/29/2017 CMP, serum or plasm a potassium 4.0 mmol/ L 3.4-5. 0 normal Not Available [facility] [address] [place] [address], [address], 08/29/2017 13:04:03 08/30/19 18 08/29/2017 CMP, serum or plasm a chloride 101 mmol/ L 98-107 normal Not Available [facility] [address] [place] [address], [address], 08/29/2017 13:04:03 08/30/19 18 08/29/2017 CMP, serum or plasm a carbon dioxide 27 mmol/ L 20-32 normal Not Available [facility] [address] [place] [address], [address], 08/29/2017 13:04:03 08/30/19 18 08/29/2017 CMP, serum or plasm a anion gap 12 (calc ) 7-25 normal Not Available [facility] [address] [place] [address], [address], 08/29/2017 13:04:03 08/30/19 18 08/29/2017 CMP, serum or plasm a calcium 9.2 mg/dL 8.6-10 .2 normal Not Available [facility] [address] [place] [address], [address], 08/29/2017 13:04:03 08/30/19 18 08/29/2017 CMP, serum or plasm a total protein 6.6 g/dL 6.4-8. 3 normal Not Available [facility] [address] [place] [address], [address], 08/29/2017 13:04:03 08/30/19 18 08/29/2017 CMP, serum or plasm a albumin 4.3 g/dL 3.5-5. 2 normal Not Available [facility] [address] [place] [address], [address], 08/29/2017 13:04:03 08/30/19 18 08/29/2017 CMP, serum or plasm a globulin 2.3 g/dL_ (calc ) 1.5-4. 5 normal Not Available [facility] [address] [place] [address], [address], 08/29/2017 13:04:03 08/30/19 18 08/29/2017 CMP, serum or plasm a albumin/glob ulin ratio 1.9 (calc ) 1.1-2. 5 normal Not Available [facility] [address] [place] [address], [address], 08/29/2017 13:04:03 08/30/19 18 08/29/2017 CMP, serum or plasm a bilirubin, total 0.7 mg/dL 0.1-1. 2 normal Not Available [facility] [address] [place] [address], [address], 08/29/2017 13:04:03 08/30/19 18 08/29/2017 CMP, serum or plasm a alkaline phosphatase 84 U/L 40-130 normal Not Available [facility] [address] [place] [address], [address], 08/29/2017 13:04:03 08/30/19 18 08/29/2017 CMP, serum or plasm a AST 13 U/L 0-40 normal Not Available [facility] [address] [place] [address], [address], 08/29/2017 13:04:03 08/30/19 18 08/29/2017 CMP, serum or plasm a ALT 7 U/L 0-41 normal Not Available [facility] [address] [place] [address], [address], 08/29/2017 13:04:03 08/30/19 18 08/29/2017 CMP, serum or plasm a GFR 78 >= 60 normal Not Available [facility] [address] [place] [address], [address], 08/29/2017 13:04:03 08/30/19 18 08/29/2017 CMP, serum [...] s or longe r. . Not Available [facility] [address] [place] [address], [address], 08/29/2017 13:04:03 08/30/19 18 08/29/2017 TSH, serum or plasm a TSH 1.580 uIU/m L 0.290- 5.500 normal Not Available [facility] [address] [place] [address], [address], 08/29/2017 13:09:22 08/30/19 18 08/29/2017 vitam in D, 25-hy droxy , total , serum vitamin D 25-oh, total 45 NG/mL >=30 NG/mL normal Not Available [facility] [address] [place] [address], [address], 08/29/2017 13:39:00 08/30/19 18 08/29/2017 vitam in B12 + folat e, serum or blood folic acid 12.1 NG/mL 4.8-24 .2 normal Not Available [facility] [address] [place] [address], [address], 08/29/2017 13:49:02 08/30/19 18 08/29/2017 vitam in B12 + folat e, serum or blood vitamin B12 1178 pg/mL 232-12 45 normal Not Available [facility] [address] [place] [address], [address], 08/29/2017 13:49:02 08/30/19 18 08/29/2017 XR, orlin tika, 2 or more view Dia jose [address] [place] [address] Patien t Name: HANY maya : [phone] maya Orderi [facility] er: ROBLES Gutierrez EXAM DATE: 2017 EXAM: [...] Shar singleton MD on 018 12:56 PM [email or web address] [facility] [address], [address], 08/30/2017 13:55:05 Result Notes Documentation Provider Name and Address Organization Details Recorded Time Xr, Shoulder, 2 Or More View : [address] [address] Patient Name: HANY TORRES Patient : [id number] Patient Ordering Provider: RADHA WEBER EXAM DATE: 08/29/2017 EXAM: XR LT SHOULDER COMPLETE RADIOGRAPHIC VIEWS: 2 COMPARISON: 11/08/2015 HISTORY: Left shoulder pain. FINDINGS: The bones of the shoulder are normal in alignment. There is no evidence of fracture. There is mild to moderate degenerative changes at the glenohumeral joint. There are mild degenerative changes at the acromioclavicular joint. The acromioclavicular and coracoclavicular spacing is normal. The visualized left ribs and left lung appears normal. IMPRESSION: 1. There are mild to moderate degenerative changes in the left shoulder. Interpreted By: Winston Garcia [facility] 08/30/2017 13:55:05 Problems Name Problem SNOMED Code Status Onset Date Resolution Date Notes Provider Name and Address Organization Details Recorded Time Neck pain 99448039 Active 2015 From Automated Load;Prov ider: Radha Weber;S tatus: Active Not Available [facility] 6 09:38:03 Hand pain 37846697 Active 2015 From Automated Load;Prov ider: Radha Weber;S tatus: Active Not Available [facility] 6 09:38:03 Pain in right hand [id number] 9109 Active 2015 From Automated Load;Prov ider: Beth, Radha;S tatus: Active Not Available [facility] 6 09:38:14 Pain of joint of wrist 310462374 Active 2015 From Automated Load;Prov ider: Radha Weber;S tatus: Active Not Available [facility] 6 09:38:14 Idiopathi c osteoarth ritis 946357007 Active 2015 From Automated Load;Prov ider: Radha eWber;S tatus: Active Not Available [facility] 6 09:38:14 Problem Notes None recorded. Procedures Surgical History Date Name Laterality Status Provider Name and Address Organization Details Recorded Time 9 Injection Joint/Bursa, Major, w/o US completed RADHA WEBER APRN [address] [place], [address], [facility] 11/21/2018 14:14:35 8 Injection Joint/Bursa, Major, w/o US completed RADHA WEBER APRN [address] [place], [address], [facility] 09/02/2017 13:09:52 Orthopedic Surgery completed Bri Fuentes [facility] 08/29/2017 11:08:25 Other completed Bri ALVAREZ Le [facility] 08/29/2017 11:09:12 Imaging Results None recorded. [...] 0 Not Available Not Available Not Available [place] 5 mg-325 mg tablet Every eight hours [...] Body mass index (BMI) Body weight Systolic And Diastolic Provider Name and Address Organization Details Last Updated DateTime 05/22/2018 177.8 cm 71 /min 21.7 kg/m2 04410.55 g 115/66 mm[Hg] RADHA WEBER, [employer] [address] [place], [address] , [facility] 05/22/2018 16:01:37 Date Recorded Body height Body mass index (BMI) Body weight Heart rate Systolic And Diastolic Provider Name and Address Organization Details Last Updated DateTime 08/29/2017 177.8 cm 19.4 kg/m2 66849.97 g 59 /min 103/54 mm[Hg] Bri Fuentes [facility] 08/29/2017 11:10:18 Date Recorded Body height Body mass index (BMI) Body weight Respiratory rate Heart rate Systolic And Diastolic Provider Name and Address Organization Details Last Updated DateTime 9 177.8 cm 20.8 kg/m2 97670.8 9 g 18 /min 87 /min 119/63 mm[Hg] Clarence Abner [facility] 9 13:57:36 Date Recorded Body height Body mass index (BMI) Body weight Heart rate Systolic And Diastolic Provider Name and Address Organization Details Last Updated DateTime 11/27/2017 177.8 cm 20.7 kg/m2 63867.3 g 69 /min 120/76 mm[Hg] Bri Fuentes [facility] 11/27/2017 15:55:40 Date Recorded Body height Body mass index (BMI) Body weight Respiratory rate Heart rate Systolic And Diastolic Provider Name and Address Organization Details Last Updated DateTime 8 177.8 cm 20.8 kg/m2 42677.8 9 g 18 /min 69 /min 108/63 mm[Hg] Nia Hobbs [facility] 8 16:20:59 Social History Question Answer Notes LastModified by Organizat ion Details LastModified Time Tobacco Smoking Status Never Smoker [facility] 06/25/2016 16:20:26 How Much Tobacco Do You [...] is your level of alcohol consumption? None [email or web address] Information not available 08/29/2017 Mental Status None recorded. Family History Relationship Description Onset Age of this Age Resolved Age Notes LastModified by Organization Details LastModified Time Father No current problems or disability [email or web address] Not available 06/25 16:19:20 Mother No current problems or disability [email or web address] Not available 06/25 16:19:20 Medical History Condition Response Diabetes N Bleeding Disorder N Arthritis Y Emphysema N Acid Reflux (GERD) Y Heart Disease Y Rheumatoid Arthritis N Hypertension Y COPD N Asthma N Past Encounters Encounter ID Performer Location Encounter Start Date Encounter Closed Date Diagnosis/Indication Diagnosis SNOMED-CT Code Diagnosis ICD10 Code Diagnosis Note [id number] RADHA WEBER APRN [facility] [address] [place] [address] 06/25/2016 15:30:34 06/25/2016 16:56:33 Idiopathic osteoarthritis 295947341 M19.91 chronic and recurring with pain in [...] needed Pain of deep int of wrist 532305555 M25.531 M25.532 Neck pain 31993167 M54.2 Hand pain 46961637 M79.6 41 M79.158 [id number] MIGUEL STONE APRN [facility] [address] [place] [address] 04/16/2017 15:35:49 05/07/2017 09:16:59 Osteoarthritis 312446828 M19.90 OA-diffuse but mostly symptomati c in shoulders. No synovitis or effusions. Unable to take celebrex due to expense.Me loxicam is working, at max dose.For now will keep him on meloxicam 15 mg daily.Will obtain Creatinine and BUN today.Rech agnes 3 months, sooner if needed. Long-term drug therapy 270913178 Z79.320 [id number] RADHA WEBER APRN [facility] [address] [place] [address] 08/29/2017 10:17:22 08/29/2017 12:00:34 Fatigue 25445378 R53.83 worsening Muscle weakness 93464789 M62.81 Vitamin D deficiency 347 51946 E55.9 Muscle pain 92580342 M79 .1 Iron defic iency anemia 40058926 D50.9 Serum gudelia min B12 below reference range 421120374 R79.89 Idiopathic osteoarthritis 520904933 M19.91 chronic and recurring with pain in [...] no further needed Shoulder joint pain 2679 13327 M25.331 [id number] [facility] [address] [place] [address] 11/27/2017 15:23:11 11/27/2017 16:46:42 Idiopathic osteoarthritis 588764400 M19.91 chronic and recurring with pain in the cervical spine, left shoulder and bilateral wrist and hand painsimpro gary with the use of meloxicamw ill continue with meloxicam and tramadolwi ll provide with joint injections prnlabs are good; no further needed Shoulder joint pain 2679 70601 M25.519 chronic and recurring with increased joint pain and stiffness without improvemen t with the low dose mobic starting on tramadol for improved outcome with oa no injections needed today [id number] RAD[facility] WEBER [facility] [address] [place] [address] 02/24/2018 15:32:53 02/24/2018 16:53:03 Idiopathic osteoarthritis 525276627 M19.91 chronic and recurring with pain in the cervical spine, left shoulder and bilateral wrist and hand painsimpro gary with the use of meloxicamw ill continue with meloxicam and tramadolwi ll provide with joint injections prn; none neededlabs are good; no further needed Shoulder joint pain 2679 74900 M25.519 chronic and recurring with increased joint pain and stiffness without improvemen t with the low dose mobic starting on tramadol for improved outcome with oa no injections needed today [id number] RADHA WEBER APRN [facility] [address] [place] [address] 05/22/2018 15:24:17 05/28/2018 10:31:17 Idiopathic osteoarthritis 504022580 M19.91 chronic and recurring with pain in the cervical spine, left shoulder and bilateral wrist and hand painsimpro gary with the use of meloxicamw ill continue with meloxicam and tramadolwi ll provide with joint injections prn; none neededlabs are good; no further needed Shoulder joint pain 2679 94567 M25.519 chronic and recurring with increased joint pain and stiffness without improvemen t with the low dose mobic starting on tramadol for improved outcome with oa casie inject bilateral injections today Neck pain 10154175 M54.2 with pain radiating into the bilateral shoulders requests an injection today pain muscle pain, weakness and symptoms suggesting tendinosis from pulling and lifting on his who has a back injury and disability with rods, plates and screws in her spine this helped significan tly after the last injection will provide with 120 mg IM injection today [id number] RADHA WEBER APRN RHEUMATOL [facility] [place] [address] 11/21/2018 13:31:21 11/21/2018 14:38:33 Idiopathic osteoarthritis 334277562 M19.91 chronic and recurring with pain in [...] 09/16/2017 2 [employer] (MEDICARE SUPPLEMENT) Hany Torres 03/30/2020 1 [place] Hany Torres [id number] Hany Trores 11/24/2018 2 [employer] (MEDICARE SUPPLEMENT) Hany Torres [id number] Hany Torres Notes Date Note Type Note Provider Name and Address Organization Details Recorded Time 08/29/2017 text/html f/u on oa; has been retired now; worsening left shoulder and neck pains; he has increased muscle pain and tenderness; he currently denies cp, soa, rash or fever; all others negative [place], [address], [facility] 09/02/2017 13:11:07 11/27/2017 text/html f/u on oa; has been retired now; worsening left shoulder and neck pains; he has increased muscle pain and tenderness; he currently denies bowel or bladder changes, cp, soa, rash or fever; all others negative [place], [address], [facility] 12/02/2017 00:20:06 02/24/2018 text/html f/u on oa; has been retired now; worsening left shoulder and neck pains; seeing gi; he has increased muscle pain and tenderness, weakness, worsening; he currently denies bowel or bladder changes, cp, soa, rash or fever; all others [place], [address], [facility] 02/24/2018 16:43:25 05/22/2018 text/html f/u on oa; [...] soa, rash or fever; all others negative [place], [address], [facility] 05/22/2018 16:17:20 11/21/2018 text/html f/u on oa; has been retired now; worsening left and right shoulder affecting and worsening the neck pains; seeing gi and had a stomach ulcer forming, so he is off his meloxicam; he has increased muscle pain and tenderness, weakness, worsening; he currently denies bowel or bladder changes, cp, soa, rash or fever; all others negative 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
--- OUTSIDE RECORDS SUMMARY | 2024-11-23 13:20 | XMS_ITS | Encounter Summary ---
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 - [facility] Social History Tobacco Use Types Packs/Day Years Used Date Smoking Tobacco: Never Alcohol Use Standard Drinks/Week Comments No 0 (1 standard drink = 0.6 oz pur e alcohol) Sex and Gender Information Value Date Recorded Sex Assigned at Not on file Legal Sex Male 12:02 PM EDT Gender Identity Not on file Sexual Orientation Not on file documented as of this encounter Plan of Treatment Not on file documented as of this encounter Visit Diagnoses Not on filedocumented in this encounter Care Teams Line Out Man Relationship Specialty Start Date End Date Reyes Schroeder MD [address] [place] [address] PCP - General Adolescent Medicine 10/13/15 documented as of this encounter
--- OUTSIDE RECORDS SUMMARY | 2024-11-23 13:20 | XMS_ITS | Encounter Summary ---
Author Organization [facility] Address [address] [place] [address] Care Team Providers Care Cattle Producers Name Role Phone Reyes Schroeder MD Primary Care Provider [phone] Encounter Details Date Type Department Care Team (Late st Contact Info) Description 10/06/2016 External CPT II RESEARCH LABORATORY MANAGER - [facility] Social History Tobacco Use [...] on filedocumented in this encounter Care Teams Cattle Producers Relationship Specialty Start Date End Date Reyes Schroeder MD [address] [place] [address] PCP - General Adolescent Medicine 10/13/15 documented as of this encounter
--- OUTSIDE RECORDS SUMMARY | 2024-11-23 13:20 | XMS_ITS | Encounter Summary ---
Author Organization [facility] Address [address] [place] [address] Care Team Providers Care Medical Staff Services Coordinator Name Role Phone Reyes Schroeder MD Primary Care Provider Encounter Details Date Type Department Care Team (Late st Contact Info) Description 03/15/2016 External CPT II AUTISM SPECIALIST - [facility] Social History Tobacco Use [...] on filedocumented in this encounter Care Teams Medical Staff Services Coordinator Relationship Specialty Start Date End Date Reyes Schroeder MD [address] [place] [address] PCP - General Adolescent Medicine 10/13/15 documented as of this encounter
--- OUTSIDE RECORDS SUMMARY | 2024-11-23 13:20 | XMS_ITS | Encounter Summary ---
Author Organization [facility] Address [address] [place] [address] Care Team Providers Care Blade Boner Name Role Phone Reyes Schroeder MD Primary Care Provider [phone] Encounter Details Date Type Department Care Team (Late st Contact Info) Description 11/09/2015 External CPT II DIRECTOR SPEECH AND HEARING - [facility] Social History Tobacco Use [...] on filedocumented in this encounter Care Teams Blade Boner Relationship Specialty Start Date End Date Reyes Schroeder MD [address] [place] [address] PCP - General Adolescent Medicine 10/13/15 documented as of this encounter
--- OUTSIDE RECORDS SUMMARY | 2024-11-23 13:20 | XMS_ITS | Clinical Summary ---
Author Organization [facility] Address [address] [place] [address] Care Team Providers Care Farm Equipment Operator Name Role Phone Reyes Schroeder MD Primary Care Provider [phone] Family History Medical History Relation Name Comments [...] of Treatment Not on file Care Teams Farm Equipment Operator Relationship Specialty Start Date End Date Reyes Schroeder MD [address] [place] [address] PCP - General 09/16/20
--- OUTSIDE RECORDS SUMMARY | 2024-11-23 13:20 | XMS_ITS | Encounter Summary ---
Author Organization [facility] Address [address] [place] [address] Care Team Providers Care Target Network Analyst Name Role Phone Reyes Schroeder MD Primary Care Provider Encounter Details Date Type Department Care Team (Late st Contact Info) Description 09/05/2015 External CPT II DIRECTOR MARKETING ANALYTICS - [facility] Social History Tobacco Use [...] on filedocumented in this encounter Care Teams Target Network Analyst Relationship Specialty Start Date End Date Reyes Schroeder MD [address] [facility] [address] [place] [address] PCP - General Adolescent Medicine 10/13/15 documented as of this encounter
--- OUTSIDE RECORDS SUMMARY | 2024-11-23 13:20 | XMS_ITS | Encounter Summary ---
Author Organization [facility] Address [address] [place] [address] Care Team Providers Care Finishing Frame Runner Name Role Phone Reyes Schroeder MD Primary Care Provider [phone] Encounter Details Date Type Department Care Team (Late st Contact Info) Description 05/30/2018 External CPT II GROMMET MACHINE OPERATOR - [facility] Social History Tobacco Use Types Packs/Day Years Used Date Smoking Tobacco: Never Smokeless Tobacco: Never Alcohol Use Standard Drinks/Week Comments [...] on filedocumented in this encounter Care Teams Finishing Frame Runner Relationship Specialty Start Date End Date Reyes Schroeder MD [address] [place] [address] PCP - General Adolescent Medicine 10/13/15 documented as of this encounter
--- OUTSIDE RECORDS SUMMARY | 2024-11-23 13:20 | XMS_ITS | Clinical Summary ---
Author Organization [facility] Address [address] [place] [address] Care Team Providers Care Plastics Plater Name Role Phone Reyes Schroeder MD Primary Care Provider [phone] Allergies Active Allergy Reactions Criticality Noted Date Comments Codeine 10/14/2015 Medications atorvastatin (LIPITOR) 40 MG tablet Take 40 mg by mouth daily. Active clopidogrel (PLAVIX) 75 MG tablet Take 75 mg by mouth daily. Active LORazepam (ATIVAN) 1 MG tablet Take 1 mg by mouth every 8 (eight) hours as needed for anxiety. Active tamsulosin (FLOMAX) 0.4 MG capsule 24 hr capsule Take 1 capsule by mouth daily. Active vitamin D (ERGOCALCIFEROL ) 77000 UNITS capsule capsule Take 50,000 Units by mouth 2 (two) times a week. Active methocarbamol (ROBAXIN) 500 MG tablet Take 500 mg by mouth 4 (four) times a day as needed for muscle spasms. Active lisinopril (PRINIVIL,ZESTR IL) 5 MG tablet Take 5 mg by mouth daily. Active metoprolol succinate XL (TOPROL-XL) 50 MG 24 hr tablet Take 50 mg by mouth daily. Active omeprazole (PriLOSEC) 20 MG capsule Take 20 mg by mouth daily. Active nitroglycerin (NITROSTAT) 0.[address] 0.4 mg under the tongue every 5 (five) minutes as needed for chest pain. Take no more than 3 doses in 15 minutes. Active naproxen (NAPROSYN) 500 MG tablet Take 500 mg by mouth 2 (two) times a day with meals. Active aspirin 81 MG tablet Take 81 mg by mouth daily. Active finasteride (PROSCAR) 5 MG tablet 07/26/2016 Active isosorbide dinitrate (ISORDIL) 30 MG tablet Take 30 mg by mouth Daily. Active Celecoxib (CELEBREX PO) Take by mouth 2 (Two) Times a Day. Active Active Problems Problem Noted Date Diagnosed Date Coronary artery disease 11/24/2015 Overview (11/24/2015): A) STEMI 06/2012, 4.0 x 15mm Vision bare-metal stent to LAD, PTCA to diagonal 1. B) Myocardial perfusion study 08/05/2015, positive ST segment depression in V5 and V6, Cardiolite consistent with inferior wall ischemia, EF 59%, Dr. Brice. Hypertension 11/24/2015 Dyslipidemia 11/24/2015 Anxiety 11/24/2015 GERD (gastroesophageal reflux disease) 6 Osteoarthritis 11/24/2015 BPH (benign prostatic hyperplasia) 11/24/2015 Scoliosis 11/24/2015 Overview (11/24/2015): Scoliosis with chronic neck and shoulder pain. Family History Medical History Relation Name Comments Coronary artery disease Father Diabetes Mother Diabetic kidney disease Mother Liver disease Mother Relation Name Status Comments Father (Age 86) Mother (Age 60) Social History Tobacco Use Types Packs/Day Years Used Date Smoking Tobacco: Never Smokeless Tobacco: Never Alcohol Use Standard Drinks/Week Comments No 0 (1 standard drink = 0.6 oz pur e alcohol) Abuse Screen Answer Date Recorded Unsafe at Home or Work/School Not on file Feels Threatened by Someone? Not on file 03/2023 Does Anyone Keep You from Co ntacting Others or Doint Things Outside the Home? Not on file 02/13/2023 Physical Sign of Abuse Present Not on file 1 Housing Stability Answer Date Recorded Current Living Arrangements Not on file 02/03 Potentially Unsafe Housing Conditions Not on josé e 02/13/2023 Family and Community Support Answer Otto e Recorded Help with Day-to-Day Activities Not on file 02/13/2023 Lonely or Isolated Not on file 02/13/2023 Employment Answer Date Recorded Do you want help finding or keeping work or a deep b? Not on file 02/13/2023 Disabilities Answer Date Recorded Concentrating, Remembering, or Making Decisions Difficulty Not on file 02/13/2023 Doing Errands Independently Difficulty Not on fi le 02/13/2023 Education Answer Date Recorded Help with school or training? Not on file Preferred Language Not on file 02/13/2023 Sex and Gender Information Value Date Recorded Sex Assigned at Not on file Legal Sex Male 12:02 PM EDT Gender Identity Not on file Sexual Orientation Not on file Last Filed Vital Signs Vital Sign Reading Time Taken Comments Blood Pressure 134/80 05/27/2018 1:37 PM EST Pulse 76 05/27/2018 1:37 PM EST Temperature - - Respiratory Rate - - Oxygen Saturation - - Inhaled Oxygen Concentration - - Weight 65.9 kg (145 lb 3.2 oz) 05/27/2018 1:37 P M EST Height 180.3 cm (5' 11 ) 05/27/2018 1:37 PM EST Body Mass Index 20.25 05/27/2018 1:37 PM EST Plan of Treatment Health Maintenance Due Date Last Done Comments TDAP/TD VACCINES (1 - Tdap) 1967 COLOGUARD 1993 COLON CANCER SCREENING 5 YEAR SIGMOIDOSCOPY 1993 COLONOSCOPY [address] SCREENING [address] COLONOGRAPHY 1993 FECAL OCCULT BLOOD TEST 1993 FIT Testing (1 year) 1993 Pneumococcal Vaccine 50+ (1 of 1 - PCV) 1998 ZOSTER VACCINE (1 of 2) 1998 ANNUAL PHYSICAL 08/15/2016 HEPATITIS C SCREENING 08/15/2016 RSV Vaccine - Adults (1 - 1-dose 75+ series) COVID-19 Vaccine ( - season) 2024 INFLUENZA VACCINE 02/03/2025 Insurance [employer] FIDELITY MEDICARE A & B Care Teams Plastics Plater Relationship Specialty Start Date End Date Reyes Schroeder MD [address] [facility] [address] [address] PCP - General Adolescent Medicine 10/13/15
--- OUTSIDE RECORDS SUMMARY | 2024-11-23 13:20 | XMS_ITS | Encounter Summary ---
Author Organization [facility] Address [address] [place] [address] Care Team Providers Care Outreach Coordinator Name Role Phone Reyes Schroeder MD Primary Care Provider Encounter Details Date Type Department Care Team (Late st Contact Info) Description 05/27/2015 External CPT II ENVIRONMENTAL PROGRAM MANAGER - [facility] Social History Tobacco [...] on filedocumented in this encounter Care Teams Outreach Coordinator Relationship Specialty Start Date End Date Reyes Schroeder MD [address] [facility] [address] [place] [address] PCP - General Adolescent Medicine 10/13/15 documented as of this encounter
== END 2024-11-23 23:59 | disposition home or self-care (01) ==
LOC: RAD 13:17
PROVIDERS: PCP Internal Medicine Adolescent Medicine; Visit Provider Orthopaedic Surgery
DX: S92.351A Displaced fracture of fifth metatarsal bone, right foot, initial encounter for closed fracture (principal)
CPT/HCPCS: 73610; 73630

== ENCOUNTER 2024-12-14 13:05 | Outpatient (CLI) | payer MEDICARE, SELFPAY ==
--- NOTE | 2024-12-14 13:09 | XR_ITS ---
FINAL REPORT CLINICAL HISTORY: right foot fx COMPARISON: 11/23/2024 FINDINGS: RIGHT FOOT Three views of the right foot were obtained. There is a transverse fracture of the base of the fifth metatarsal with 4 mm of displacement, stable. There is no bony union. There are mild degenerative changes. IMPRESSION: Stable appearance of the fifth metatarsal base fracture without radiographic changes of bone healing. Reviewed, Interpreted and Dictated by Israel Thomas MD Transcribed by Domonique Chacon Authenticated and [facility]
--- OUTSIDE RECORDS SUMMARY | 2024-12-14 13:10 | XMS_ITS | Clinical Summary ---
Author Organization [facility] Address [address] [place] [address] Phone Care Team Providers Care Power Shear Operator Name Role Phone Campbell Aquino MD [ ] Conditions or Problems Problem Name Problem Code Onset Date Status Entry Date Provider Comment Standard Description Annotate Fever of unknown origin 4013546 (SNOMED CT) 08/21 Inactive 08/21 Felicita W Pyrexia of unknown origin Postop hematoma of a circulatory system structure following a cardiac catheterizat ion 631982682 (SNOMED CT) 08/21 Active 08/24 Felicita W Postoperative hemorrhage Pyelonephrit is, acute 45045187 (SNOMED CT) 08/22 Active 08/22 Campbell Aquino MD Acute pyelonephritis CAD (coronary artery disease) 77977564 (SNOMED CT) 08/21 Active 08/21 Campbell Aquino MD Coronary arteriosclerosi s Acute STEMI involving left anterior descending coronary artery 64453481615 9103 (SNOMED CT) 08/21 Resolved 08/21 Campbell Aquino MD Acute ST segment elevation myocardial infarction involving left anterior descending coronary artery Cardiac device/impla nt/graft, infection/in flammatory reaction, initial encounter T82.7xxA (ICD-10-CM) 08/21 Resolved 08/21 Campbell Aquino MD Infection and inflammatory reaction due to other cardiac and vascular devices, implants and grafts, initial encounter Fever of unknown origin 1157753 (SNOMED CT) 08/21 Removed 08/21 Campbell Aquino MD Pyrexia of unknown origin Presence of cardiac stent 190201280 (SNOMED CT) 08/21 Active 08/21 Merced Parker History of placement of stent for coronary artery disease Cardiac device/impla nt/graft, infection/in flammatory reaction, initial encounter T82.7xxA (ICD-10-CM) 08/21 Removed 08/21 Merced Parker Infection and inflammatory reaction due to other cardiac and vascular devices, implants and grafts, initial encounter Acute STEMI involving left anterior descending coronary artery 60500977302 9103 (SNOMED CT) 08/21 Removed 08/[address] segment elevation myocardial infarction involving left anterior descending coronary artery Benign Essential Hypertension 29566987 (SNOMED CT) 08/21 Active 08/21 Merced Parker Benign hypertension Medications Medication Instructions Start Date Stop Date Generic Name NDC Provider CUBICIN 500 MG INTRAVENOUS SOLUTION RECONSTITUTED 500mg IV Q24hrs/ INPAT DAPTOMYCIN 10074772343 Traci Pacheco RN CEFTRIAXONE SODIUM 2 GM SOLR 2 grams IV Q24hrs/ INPAT CEFTRIAXONE SODIUM 11442434884 Traci Pacheco RN CIPRO 500 MG TABS 1 by mouth twice a day CIPROFLOXACIN HCL 58600335734 Campbell Aquino MD CUBICIN 500 MG INTRAVENOUS SOLUTION RECONSTITUTED 500mg IV Q24hrs/ INPAT DAPTOMYCIN 24741932990 Evelia Stacy RN CEFTRIAXONE SODIUM 2 GM SOLR 2 grams IV Q24hrs/ INPAT CEFTRIAXONE SODIUM 12493132621 Evelia Stacy RN CEFTRIAXONE SODIUM 2 GM SOLR 2 grams IV today CEFTRIAXONE SODIUM 18813812915 Campbell Aquino MD CUBICIN 500 MG INTRAVENOUS SOLUTION RECONSTITUTED 500mg IV today DAPTOMYCIN 59791874037 Campbell Aquino MD ERGOCALCIFEROL 1.25 MG (63778 UT) CAPS take 1 capsule twice weekly ERGOCALCIFEROL 16489549835 Jarred Esquivel VITAMIN B-12 ER 1000 MCG CR-TABS take 1 tablet daily CYANOCOBALAMIN 96660965071 Jarred Esquivel OMEPRAZOLE 20 MG TBEC take 1 tablet b.i.d. OMEPRAZOLE 78526266886 Jarred Esquivel METOPROLOL SUCCINATE ER 50 MG CS13H-QPU take 1 tablet daily METOPROLOL SUCCINATE 32802389065 Jarred Esquivel METHOCARBAMOL 500 MG TABS take 1-2 tablets t.i.d. as needed METHOCARBAMOL 13819900769 Jarred Esquivel MELOXICAM 15 MG TABS take 1 tablet daily MELOXICAM 58055296476 Jarrde Esquivel LORAZEPAM 1 MG TABS take 1 tablet b.i.d. LORAZEPAM 49177369477 Jarred Esquivel LISINOPRIL 5 MG TABS take 1 tablet at bedtime LISINOPRIL 32195195653 Jarred Esquivel HYDROCODONE-ACETA MINOPHEN 5-325 MG TABS take 1 tablet t.i.d. HYDROCODONE-ACET AMINOPHEN 19063602375 Jarred Esquivel FLOMAX 0.4 MG ORAL CAPSULE take 1 capsule at bedtime TAMSULOSIN HCL 38143193388 Jarred Esquivel MULTIVITAMINS ORAL CAPSULE take 1 capsule daily MULTIPLE VITAMIN 37735033649 Jarred Esquivel ASPIRIN 81 81 MG TBEC take 1 tablet daily ASPIRIN 46498550663 Jarred Esquivel Medications Administered No information available. [...] (procedure) SMOK STATUS Never smoker Toba senior accounting specialist smoking status Plan of Care Type Date [...] Date Entry Date CPT-dejah New IV antibiotic CPT-92190 PIV/Butterfly CPT-bcx2 Blood Cultures X2 CPT-31231 CMP CPT-53551 CBC w/o Differential CPT-58853 C- reactive protein CPT-15391 Sedimentation Rate (ESR) 201 10/07/17 [id number], [id number] CPK CPT-00865 Urinalysis with microscopic exam CPT-24790 Urine Culture & Sensitivity CPT-41454 X-Ray, Chest, PA & Lateral 2 CPT- [...]
--- OUTSIDE RECORDS SUMMARY | 2024-12-14 13:11 | XMS_ITS | Encounter Summary ---
Author Organization [facility] Address [address] [place] [address] Care Team Providers Care Pharmacology Professor Name Role Phone Reyes Schroeder MD Primary Care Provider [phone] Encounter Details Date Type Department Care Team (Late st Contact Info) Description 03/15/2016 External CPT II DECK ENGINE OPERATOR - [facility] Social History Tobacco [...] on filedocumented in this encounter Care Teams Pharmacology Professor Relationship Specialty Start Date End Date Reyes Schroeder MD [address] [place] [address] PCP - General Adolescent Medicine 10/13/15 documented as of this encounter
--- OUTSIDE RECORDS SUMMARY | 2024-12-14 13:11 | XMS_ITS | Encounter Summary ---
Author Organization [facility] Address [address] [place] [address] Care Team Providers Care Animal Control Officer Name Role Phone Reyes Schroeder MD Primary Care Provider Encounter Details Date Type Department Care Team (Late st Contact Info) Description 05/27/2015 External CPT II CONTROL PANEL TESTER - [facility] Social History Tobacco Use [...] on filedocumented in this encounter Care Teams Animal Control Officer Relationship Specialty Start Date End Date Reyes Schroeder MD [address] [facility] [address] [place] [address] PCP - General Adolescent Medicine 10/13/15 documented as of this encounter
--- OUTSIDE RECORDS SUMMARY | 2024-12-14 13:11 | XMS_ITS | Encounter Summary ---
Author Organization [facility] Address [address] [place] [address] Care Team Providers Care Aviation Neuropsychologist Name Role Phone Reyes Schroeder MD Primary Care Provider [phone] Encounter Details Date Type Department Care Team (Late st Contact Info) Description 05/30/2018 External CPT II COAT ROOM ATTENDANT - [facility] Social History Tobacco Use [...] on filedocumented in this encounter Care Teams Aviation Neuropsychologist Relationship Specialty Start Date End Date Reyes Schroeder MD [address] [place] [address] PCP - General Adolescent Medicine 10/13/15 documented as of this encounter
--- OUTSIDE RECORDS SUMMARY | 2024-12-14 13:11 | XMS_ITS | Encounter Summary ---
Author Organization [facility] Address [address] [place] [address] Care Team Providers Care Senior Manufacturing Technician Name Role Phone Reyes Schroeder MD Primary Care Provider [phone] Encounter Details Date Type Department Care Team (Late st Contact Info) Description 10/06/2016 External CPT II PAINT GRINDER [place] - [facility] Social History Tobacco Use [...] on filedocumented in this encounter Care Teams Senior Manufacturing Technician Relationship Specialty Start Date End Date Reyes Schroeder MD [address] [place] [address] PCP - General Adolescent Medicine 10/13/15 documented as of this encounter
--- OUTSIDE RECORDS SUMMARY | 2024-12-14 13:11 | XMS_ITS | Encounter Summary ---
Author Organization [facility] Address [address] [place] [address] Care Team Providers Care Fishing Worker Name Role Phone Reyes Schroeder MD Primary Care Provider [phone] Encounter Details Date Type Department Care Team (Late st Contact Info) Description 09/05/2015 External CPT II DIRECTOR EXPERIMENTAL MEDICINE - [facility] Social History Tobacco Use [...] on filedocumented in this encounter Care Teams Fishing Worker Relationship Specialty Start Date End Date Reyes Schroeder MD [address] [facility] [address] [place] [address] PCP - General Adolescent Medicine 10/13/15 documented as of this encounter
--- OUTSIDE RECORDS SUMMARY | 2024-12-14 13:11 | XMS_ITS | Encounter Summary ---
Author Organization [facility] Address [address] [place] [address] Care Team Providers Care Cellophaner Name Role Phone Reyes Schroeder MD Primary Care Provider [phone] Encounter Details Date Type Department Care Team (Late st Contact Info) Description 11/09/2015 External CPT II FRUIT GRADER - [facility] Social History Tobacco Use [...] on filedocumented in this encounter Care Teams Cellophaner Relationship Specialty Start Date End Date Reyes Schroeder MD [address] [place] [address] PCP - General Adolescent Medicine 10/13/15 documented as of this encounter
--- OUTSIDE RECORDS SUMMARY | 2024-12-14 13:11 | XMS_ITS | Clinical Summary ---
Author Organization [facility] Address [address] [place] [address] Care Team Providers Care Wild Animal Caretaker Name Role Phone Reyes Schroeder MD Primary Care Provider [phone] Family History Medical History Relation Name Comments [...] of Treatment Not on file Care Teams Wild Animal Caretaker Relationship Specialty Start Date End Date Reyes Schroeder MD [address] [place] [address] PCP - General 09/16/20
--- OUTSIDE RECORDS SUMMARY | 2024-12-14 13:11 | XMS_ITS | Encounter Summary ---
Author Organization [facility] Address [address] [place] [address] Care Team Providers Care Router Operator Radial Name Role Phone Reyes Schroeder MD Primary Care Provider Encounter Details Date Type Department Care Team (Late st Contact Info) Description 03/26/2016 External CPT II FIRE PATROL - [facility] Social History Tobacco Use [...] on filedocumented in this encounter Care Teams Router Operator Radial Relationship Specialty Start Date End Date Reyes Schroeder MD [address] [place] [address] PCP - General Adolescent Medicine 10/13/15 documented as of this encounter
--- OUTSIDE RECORDS SUMMARY | 2024-12-14 13:11 | XMS_ITS | Clinical Summary ---
Author Organization [facility] Address [address] [place] [address] Care Team Providers Care Soaping Machine Back Tender Name Role Phone Reyes Schroeder MD Primary Care Provider [phone] Allergies Active Allergy Reactions Criticality Noted Date [...] mouth daily. Active vitamin D (ERGOCALCIFEROL ) 38625 UNITS capsule capsule Take 50,000 Units by [...] - season) 2024 INFLUENZA VACCINE 02/03/2025 Insurance [employer] FIDELITY MEDICARE A & B Care Teams Soaping Machine Back Tender Relationship Specialty Start Date End Date Reyes Schroeder MD [address] [facility] [address] [address] PCP - General Adolescent Medicine 10/13/15
== END 2024-12-14 23:59 | disposition home or self-care (01) ==
LOC: RAD 13:06
PROVIDERS: PCP Internal Medicine Adolescent Medicine; Visit Provider Orthopaedic Surgery
DX: S92.351A Displaced fracture of fifth metatarsal bone, right foot, initial encounter for closed fracture (principal); M19.071 Primary osteoarthritis, right ankle and foot; X58.XXXA Exposure to other specified factors, initial encounter
CPT/HCPCS: 73630

== ENCOUNTER 2025-01-18 12:46 | Outpatient (CLI) | payer MEDICARE, SELFPAY ==
--- NOTE | 2025-01-18 12:48 | XR_ITS ---
FINAL REPORT CLINICAL HISTORY: Right Foot Fx FINDINGS: RIGHT FOOT 2 views of the right foot were obtained. There is a transverse fracture at the base of the fifth metatarsal with 2 mm of displacement. There is also an old healed fracture of the second proximal phalanx. Visualized joint spaces are normally aligned. Soft tissues are unremarkable. IMPRESSION: Transverse fracture at the base of the fifth metatarsal with 2 mm displacement. Reviewed, Interpreted and Dictated by Israel Thomas MD Transcribed by Alma Rosa Saini Authenticated and [facility]
--- OUTSIDE RECORDS SUMMARY | 2025-01-18 12:49 | XMS_ITS | Encounter Summary ---
Author Organization [facility] Address [address] [place] [address] Care Team Providers Care Sales And Production Manager Name Role Phone Reyes Schroeder MD Primary Care Provider Encounter Details Date Type Department Care Team (Late st Contact Info) Description 11/09/2015 External CPT II DAIRY FEED WORKER - [facility] Social History Tobacco Use [...] on filedocumented in this encounter Care Teams Sales And Production Manager Relationship Specialty Start Date End Date Reyse Schroeder MD [address] [place] [address] PCP - General Adolescent Medicine 10/13/15 documented as of this encounter
--- OUTSIDE RECORDS SUMMARY | 2025-01-18 12:49 | XMS_ITS | Encounter Summary ---
Author Organization [facility] Address [address] [place] [address] Care Team Providers Care Appeals Analyst Name Role Phone Reyes Schroeder MD Primary Care Provider Encounter Details Date Type Department Care Team (Late st Contact Info) Description 05/27/2015 External CPT II MOTION GRAPHICS ARTIST - [facility] Social History Tobacco Use [...] on filedocumented in this encounter Care Teams Appeals Analyst Relationship Specialty Start Date End Date Reyes Schroeder MD [address] [facility] [address] [place] [address] PCP - General Adolescent Medicine 10/13/15 documented as of this encounter
--- OUTSIDE RECORDS SUMMARY | 2025-01-18 12:49 | XMS_ITS | Encounter Summary ---
Author Organization [facility] Address [address] [place] [address] Care Team Providers Care Multicultural Services Librarian Name Role Phone Reyes Schroeder MD Primary Care Provider Encounter Details Date Type Department Care Team (Late st Contact Info) Description 05/30/2018 External CPT II MEDICAL APPOINTMENT CLERK - [facility] Social History Tobacco Use [...] on filedocumented in this encounter Care Teams Multicultural Services Librarian Relationship Specialty Start Date End Date Reyes Schroeder MD [address] [place] [address] PCP - General Adolescent Medicine 10/13/15 documented as of this encounter
--- OUTSIDE RECORDS SUMMARY | 2025-01-18 12:49 | XMS_ITS | Encounter Summary ---
Author Organization [facility] Address [address] [place] [address] Care Team Providers Care Boring Mill Operator For Metal Name Role Phone Reyes Schroeder MD Primary Care Provider Encounter Details Date Type Department Care Team (Late st Contact Info) Description 03/26/2016 External CPT II TAMPING MACHINE OPERATOR - [facility] Social History [...] on filedocumented in this encounter Care Teams Boring Mill Operator For Metal Relationship Specialty Start Date End Date Reyes Schroeder MD [address] [place] [address] PCP - General Adolescent Medicine 10/13/15 documented as of this encounter
--- OUTSIDE RECORDS SUMMARY | 2025-01-18 12:49 | XMS_ITS | Encounter Summary ---
Author Organization [facility] Address [address] [place] [address] Care Team Providers Care Integrity Assessor Name Role Phone Reyes Schroeder MD Primary Care Provider Encounter Details Date Type Department Care Team (Late st Contact Info) Description 09/05/2015 External CPT II ASSEMBLING INSPECTOR - [facility] Social History Tobacco [...] on filedocumented in this encounter Care Teams Integrity Assessor Relationship Specialty Start Date End Date Reyes Schroeder MD [address] [facility] [address] [place] [address] PCP - General Adolescent Medicine 10/13/15 documented as of this encounter
--- OUTSIDE RECORDS SUMMARY | 2025-01-18 12:49 | XMS_ITS | Encounter Summary ---
Author Organization [facility] Address [address] [place] [address] Care Team Providers Care Architecture Drafter Name Role Phone Reyes Schroeder MD Primary Care Provider Encounter Details Date Type Department Care Team (Late st Contact Info) Description 10/06/2016 External CPT II AUTOMATIC WINDER OPERATOR - [facility] Social History Tobacco [...] on filedocumented in this encounter Care Teams Architecture Drafter Relationship Specialty Start Date End Date Reyes Schroeder MD [address] [place] [address] PCP - General Adolescent Medicine 10/13/15 documented as of this encounter
--- OUTSIDE RECORDS SUMMARY | 2025-01-18 12:49 | XMS_ITS | Clinical Summary ---
Author Organization [facility] Address [address] [place] [address] Care Team Providers Care Fire Hydrant Operator Name Role Phone Reyes Schroeder MD Primary Care Provider + [phone] Family History Medical History Relation Name Comments [...] of Treatment Not on file Care Teams Fire Hydrant Operator Relationship Specialty Start Date End Date Reyes Schroeder MD [address] [place] [address] PCP - General 09/16/20
--- OUTSIDE RECORDS SUMMARY | 2025-01-18 12:49 | XMS_ITS | Encounter Summary ---
Author Organization [facility] Address [address] [place] [address] Care Team Providers Care Flight Data Technician Name Role Phone Reyes Schroeder MD Primary Care Provider [phone] Encounter Details Date Type Department Care Team (Late st Contact Info) Description 03/15/2016 External CPT II TAXI DANCER - [facility] Social History Tobacco Use [...] on filedocumented in this encounter Care Teams Flight Data Technician Relationship Specialty Start Date End Date Reyes Schroeder MD [address] [place] [address] PCP - General Adolescent Medicine 10/13/15 documented as of this encounter
--- OUTSIDE RECORDS SUMMARY | 2025-01-18 12:49 | XMS_ITS | Clinical Summary ---
Author Organization [facility] Address [address] [place] [address] Care Team Providers Care Wrapper Selector Name Role Phone Reyes Schroeder MD Primary Care Provider [phone] Allergies Active Allergy Reactions Criticality Noted Date [...] mouth daily. Active vitamin D (ERGOCALCIFEROL ) 92206 UNITS capsule capsule Take 50,000 Units by [...] 75+ series) COVID-19 Vaccine ( - season) 2025 INFLUENZA VACCINE 02/03/2025 Insurance [employer] FIDELITY MEDICARE A & B Care Teams Wrapper Selector Relationship Specialty Start Date End Date Reyes Schroeder MD [address] [facility] [address] [address] PCP - General Adolescent Medicine 10/13/15
== END 2025-01-18 23:59 | disposition home or self-care (01) ==
LOC: RAD 12:46
PROVIDERS: PCP Internal Medicine Adolescent Medicine; Visit Provider Orthopaedic Surgery
DX: S92.351A Displaced fracture of fifth metatarsal bone, right foot, initial encounter for closed fracture (principal)
CPT/HCPCS: 73620